=== PATIENT | female | born 1935 | race Caucasian/White ===

== ENCOUNTER 2021-06-12 14:11 | Inpatient (IN) | payer MEDICARE ==
--- NOTE | 2021-06-12 15:20 | EDM.PDOC ---
ED HPI GENERAL MEDICAL PROBLEM - General Stated Complaint: FALL W/INJURY TO RIGHT HIP Time Seen by Provider: 06/12/21 15:05 Source of Information: Reports: Patient, Family (Patient's daughter) History Limitations: Reports: Other (Patient with dementia and cannot provide me with this information.) - History of Present Illness INITIAL COMMENTS - FREE TEXT/NARRATIVE: 85-year-old female who was walking in her home and had a fall that was unwitnessed at about 3:30 PM yesterday. The daughter reports that she was in another part of the house and she heard a loud noise and went to investigate and found that her mother was lying on the floor and conversant and did not seem to be in any distress but it looked like she was walking and potentially tripped and fell on her right side and then her back. Unsure if she had an head injury or not. The patient really cannot provide us with any history because of her dementia and memory issues. The patient was able to scoot over to the couch with her daughters help and was able to get up and she was ambulatory at that time and continues to be ambulatory through most of the night being a bit out of the bathroom since from her daughter. The patient was also able to ambulate this morning without much difficulty although she was complaining of some pain in her right hip area. This afternoon, when the daughter tried to ambulate her to the bathroom she found it very difficult for her to walk and really she could not walk and was having extreme trouble bearing weight on her and she did not seem to have any strength or energy. Today, the patient has also been very confused and the daughter reports that her mother has "good days" and "bad days" and today would be a "bad day" with regard to memory issues and the level of orientation. No complaints of abdominal pain. The urine has been clear. No blood in the urine. No reports of nausea or vomiting. The patient is very confused today. No localized area of weakness noted. There are no other associated signs or symptoms. There are no other modifying factors. Onset: Other (3:30 PM yesterday) Duration: Constant Location: Reports: Lower Extremity, Right (Right hip) Quality: Reports: Other (Unknown) Severity: Moderate Improves with: Reports: Rest Worsens with: Reports: Other (Palpation), Movement Context: Reports: Trauma Associated Symptoms: Reports: No Other Symptoms (Except as above.) Treatments [employer]: Reports: Other (see below) (Nothing) - Related Data Allergies Allergy/AdvReac Type Severity Reaction Status Date / Time morphine Allergy Cannot Verified 06/12/21 15:09 Remember Home Meds: Home Meds . [Unable to Verify Home Med List] 06/12/21 [History] Past Medical History Cardiovascular History: Reports: CAD, High Cholesterol, Hypertension, [place] - Past Surgical History Cardiovascular Surgical History: Reports: Coronary Artery Bypass Musculoskeletal Surgical History: Reports: Knee Replacement (Bilateral) Social & Family History - Tobacco Use Tobacco Use Status *Q: Unknown Ever Used Tobacco (Nonsmoker) - Alcohol Use Alcohol Use History: No - Living Situation & Occupation Living situation: Reports: with Family (Lives with her daughter.) Occupation: Retired ED ROS GENERAL - Review of Systems Review Of Systems: Unable To Obtain (Some of this information was provided by the daughter and is detailed below.) Reason Not Obtained: Patient cannot provide this information secondary to dementia Constitutional: Denies: Fever Respiratory: Denies: Shortness of Breath, Cough Cardiovascular: Denies: Chest Pain GI/Abdominal: Denies: Diarrhea, Vomiting Musculoskeletal: Reports: Leg Pain (Right hip) Skin: Denies: Rash, Wound Neurological: Reports: Confusion. Denies: Dizziness Psychiatric: Reports: Confusion Hematologic/Lymphatic: Denies: Easy Bleeding, Easy Bruising Immunologic: Denies: No Symptoms ED EXAM, GENERAL - Physical Exam Exam: See Below Exam Limited By: No Limitations General Appearance: Alert, WD/WN, No Apparent Distress Eye Exam: Bilateral Eye: EOMI, Normal Inspection, PERRL Ears: Normal External Exam, Hearing Grossly Normal Ear Exam: Bilateral Ear: Auricle Normal Nose: Normal Inspection, Normal Mucosa, No Blood Throat/Mouth: Normal Oropharynx, Normal Voice, No Airway Compromise Head: Atraumatic, Normocephalic Neck: Normal Inspection, Supple, Non-Tender, Full Range of Motion Respiratory/Chest: No Respiratory Distress, Lungs Clear, Normal Breath Sounds, No Accessory Muscle Use, Chest Non-Tender Cardiovascular: Normal Peripheral Pulses, Regular Rate, Rhythm, No Murmur Peripheral Pulses: 2+: Radial (L), Radial (R), Dorsalis Pedis (L), Dorsalis Pedis (R) GI/Abdominal: Normal Bowel Sounds, Soft, Non-Tender, No Mass Back Exam: Normal Inspection. No: CVA Tenderness (R), CVA Tenderness (L), Muscle Spasm Extremities: No Pedal Edema, Normal Capillary Refill, Leg Pain (Tender over rig ht hip area. No crepitus.) Neurological: Alert, CN II-XII Intact, No Motor/Sensory Deficits, Confused, Disoriented Skin Exam: Warm, Dry, Intact, Normal Color #1 Interpretation EKG Date: 06/12/21 Time: 15:38 Rhythm: NSR Rate (Beats/Min): 58 Raymond: Normal P-Wave: Present QRS: Normal ST-T: Other (Borderline T-wave abnormalities in the anterior leads) QT: Prolonged Comparison: NA - No Prior EKG Course - Vital Signs Last Recorded V/S: Last Vital Signs Temp 36.1 C 06/12/21 14:15 Pulse 62 06/12/21 14:15 Resp 18 06/12/21 14:15 BP 141/66 H 06/12/21 14:15 Pulse Ox 97 06/12/21 14:15 - Orders/Labs/Meds Orders: Active Orders 24 hr Category Date Time Status Patient Status Manage Transfer [TRANSFER] Routine ADT 06/12/21 20:15 Active Patient Status [ADT] Routine ADT 06/12/21 20:07 Active Insert Urinary Catheter [OM.PC] ONETIME Care 06/12/21 15:45 Ordered Intake and Output [RC] QSHIFT Care 06/12/21 20:10 Active Oxygen Therapy [RC] PRN Care 06/12/21 20:07 Active VTE/DVT Education [RC] Per Unit Routine Care 06/12/21 20:07 Active Vital Signs [RC] Q4H Care 06/12/21 20:07 Active Heart Healthy Diet [DIET] Diet 06/12/21 Dinner Ordered Head wo Cont [CT] Stat Exams 06/12/21 15:29 Taken Hip Min 2V or 3V w Pelvis Rt [CR] Stat Exams 06/12/21 15:29 Taken Lower Extremity wo Cont Rt [CT] Stat Exams 06/12/21 17:41 Taken Pelvis wo Cont [CT] Stat Exams 06/12/21 17:39 Taken BASIC METABOLIC PANEL,BMP [CHEM] AM Lab 06/13/21 05:11 Ordered CBC WITH AUTO DIFF [HEME] AM Lab 06/13/21 05:11 Ordered CULTURE URINE [RM] Stat Lab 06/12/21 15:40 Received Acetaminophen [TylenoL] Med 06/12/21 20:06 Ordered 650 mg PO Q4H PRN Ondansetron [Zofran] Med 06/12/21 20:06 Ordered 4 mg IV Q6H PRN Sodium Chloride 0.9% [Normal Saline] 1,000 ml Med 06/12/21 20:15 Ordered IV ASDIRECTED VTE Mechanical Contraindications [AST] Per Unit Routine Oth 06/12/21 20:06 Ordered VTE Pharmacological Contraindications [AST] Per Unit Oth 06/12/21 20:06 Ordered Routine Resuscitation Status Routine Resus Stat 06/12/21 20:06 Ordered EKG 12 Lead [EK] Routine Ther 06/12/21 15:29 Ordered Medication Orders Acetaminophen (Acetaminophen 325 Mg Tab) 650 mg PO Q4H PRN PRN Reason: Pain (Mild 1-3)/fever Sodium Chloride (Normal Saline) 1,000 mls @ 75 mls/hr IV ASDIRECTED [facility] Ondansetron HCl (Ondansetron 4 Mg/2 Ml Sdv) 4 mg IV Q6H PRN PRN Reason: Nausea/Vomiting Labs: Laboratory Tests 06/12/21 06/12/21 06/12/21 Range/Units 15:40 15:40 15:40 WBC 9.4 (3.0-10.3) x10-3/uL RBC 4.61 (3.60-5.20) x10(6)uL Hgb 13.3 (11.4-15.5) g/dL Hct 39.7 (34.2-48.2) % MCV 86.2 (76.7-100.5) fL MCH 28.9 (23.9-33.9) pg MCHC 33.5 (31.9-34.8) g/dL RDW 14.3 (12.3-16.5) % Plt Count 369 (151-488) x10(3)uL MPV 7.5 (7.1-12.4) fL Neut % (Auto) 86.0 H (30.8-76.2) % Lymph % (Auto) 3.6 L (18.4-52.1) % Smith % (Auto) 9.2 (4.4-15.7) % Eos % (Auto) 0.8 (0.6-8.1) % Baso % (Auto) 0.4 (0.2-1.5) % Neut # (Auto) 8.1 H (1.5-6.3) x10-3/uL Lymph # (Auto) 0.3 L (1.0-4.4) x10-3/uL Smith # (Auto) 0.9 (0.3-1.0) x10-3/uL Eos # (Auto) 0.1 (0.0-0.8) x10-3/uL Baso # (Auto) 0.0 (0.0-0.1) x10-3/uL PT 11.7 H (9.0-11.1) sec INR 1.09 (1.00-1.24) Sodium (135-145) mmol/L Potassium (3.5-5.3) mmol/L Chloride (100-110) mmol/L Carbon Dioxide (21-32) mmol/L BUN (7-18) mg/dL Creatinine (0.55-1.02) mg/dL Est Cr Clr Drug Dosing mL/min Estimated GFR (MDRD) (>60) BUN/Creatinine Ratio (9-20) Glucose (80-116) mg/dL Calcium (8.6-10.2) mg/dL Magnesium (1.8-2.5) mg/dL Total Bilirubin (0.1-1.3) mg/dL AST (5-25) IU/L ALT (12-36) U/L Alkaline Phosphatase (56-112) IU/L Troponin I (4.0-60.3) pg/mL C-Reactive Protein (0.5-0.9) mg/dL Total Protein (6.0-8.0) g/dL Albumin (3.2-4.6) g/dL Globulin g/dL Albumin/Globulin Ratio Urine Color [place] (YELLOW) Urine Appearance Clear (CLEAR) Urine pH 5.0 (5.0-6.5) Ur Specific [place] 1.015 (1.010-1.025) Urine Protein 30 H (NEGATIVE) mg/dL Urine Glucose (UA) Normal (NORMAL) mg/dL Urine Ketones Negative (NEGATIVE) mg/dL Urine Occult Blood Moderate H (NEGATIVE) Urine Nitrite Negative (NEGATIVE) Urine Bilirubin Small H (NEGATIVE) Urine Urobilinogen 1 H (NEGATIVE) mg/dL Ur Leukocyte Esterase Negative (NEGATIVE) U Hyaline Cast (Auto) Few H (NS) Urine RBC 10-20 H (0-5) Urine WBC 0-5 (0-5) Ur Squamous Epith Cells Rare (NS,R,O) Urine Bacteria Few H (NS) Urine Mucus Few H (NS) 06/12/21 06/12/21 Range/Units 15:40 15:40 WBC (3.0-10.3) x10-3/uL RBC (3.60-5.20) x10(6)uL Hgb (11.4-15.5) g/dL Hct (34.2-48.2) % MCV (76.7-100.5) fL MCH (23.9-33.9) pg MCHC (31.9-34.8) g/dL RDW (12.3-16.5) % Plt Count (151-488) x10(3)uL MPV (7.1-12.4) fL Neut % (Auto) (30.8-76.2) % Lymph % (Auto) (18.4-52.1) % Smith % (Auto) (4.4-15.7) % Eos % (Auto) (0.6-8.1) % Baso % (Auto) (0.2-1.5) % Neut # (Auto) (1.5-6.3) x10-3/uL Lymph # (Auto) (1.0-4.4) x10-3/uL Smith # (Auto) (0.3-1.0) x10-3/uL Eos # (Auto) (0.0-0.8) x10-3/uL Baso # (Auto) (0.0-0.1) x10-3/uL PT (9.0-11.1) sec INR (1.00-1.24) Sodium 134 L (135-145) mmol/L Potassium 3.7 (3.5-5.3) mmol/L Chloride 99 L (100-110) mmol/L Carbon Dioxide 30 (21-32) mmol/L BUN 17 (7-18) mg/dL Creatinine 0.9 (0.55-1.02) mg/dL Est Cr Clr Drug Dosing 35.49 mL/min Estimated GFR (MDRD) 59 L (>60) BUN/Creatinine Ratio 18.9 (9-20) Glucose 124 H (80-116) mg/dL Calcium 8.4 L (8.6-10.2) mg/dL Magnesium 1.8 (1.8-2.5) mg/dL Total Bilirubin 0.8 (0.1-1.3) mg/dL AST 21 (5-25) IU/L ALT 31 (12-36) U/L Alkaline Phosphatase 61 (56-112) IU/L Troponin I 11.4 (4.0-60.3) pg/mL C-Reactive Protein 3.1 H* (0.5-0.9) mg/dL Total Protein 6.2 (6.0-8.0) g/dL Albumin 3.5 (3.2-4.6) g/dL Globulin 2.7 g/dL Albumin/Globulin Ratio 1.3 Urine Color (YELLOW) Urine Appearance (CLEAR) Urine pH (5.0-6.5) Ur Specific [place] (1.010-1.025) Urine Protein (NEGATIVE) mg/dL Urine Glucose (UA) (NORMAL) mg/dL Urine Ketones (NEGATIVE) mg/dL Urine Occult Blood (NEGATIVE) Urine Nitrite (NEGATIVE) Urine Bilirubin (NEGATIVE) Urine Urobilinogen (NEGATIVE) mg/dL Ur Leukocyte Esterase (NEGATIVE) U Hyaline Cast (Auto) (NS) Urine RBC (0-5) Urine WBC (0-5) Ur Squamous Epith Cells (NS,R,O) Urine Bacteria (NS) Urine Mucus (NS) Meds: Medications Generic Name Dose Route Start Last Admin Trade Name Freq PRN Reason Stop Dose Admin Acetaminophen 650 mg 06/12/21 20:06 Acetaminophen 325 Mg Tab PO Q4H PRN Pain (Mild 1-3)/fever Sodium Chloride 1,000 mls @ 75 mls/hr 06/12/21 20:15 Normal Saline IV ASDIRECTED [facility] Ondansetron HCl 4 mg 06/12/21 20:06 Ondansetron 4 Mg/2 Ml Sdv IV Q6H PRN Nausea/Vomiting - Radiology Interpretation Free Text/Narrative:: CT scan of head showed no acute abnormality per Dr. Pretty. X-ray of pelvis and right hip showed no definite fracture per Dr. Pretty. CT scan of pelvis and right hip shows right greater trochanter fracture that is nondisplaced. This was per the [facility] radiologist. - Re-Assessments/Exams Free Text/Narrative Re-Assessment/Exam: 06/12/21 16:30: White blood cell count was 9.4. Hemoglobin is 13.3. Platelet count is normal. Sodium is 134. Potassium is 3.7. Bicarbonate is 30. BUN is 17 and creatinine is 0.9. Glucose is 124. Urinalysis is negative. LFTs are normal. I am awaiting results of the CT scan of the head and the pelvis and hip the patient remains hemodynamically stable. She is still disoriented. 06/12/21 17:15: CT scan of the head showed no acute abnormality. The x-rays of the pelvis and the right hip showed no definite fracture per the radiologist. The plan will be to ambulate the patient and if she is able ambulate, she will be able to be discharged home. 06/12/21 17:35: The patient was not able to ambulate. When she attempted to she had severe pain and could not even bear weight on her right foot. We will need to do a CT scan of the pelvis and right hip. Keep the patient at bed rest and continue monitoring her for now. She is stable and not requiring any pain medications. 06/12/21 19:15: CT scan of the patient's pelvis and right hip shows a nondisplaced greater trochanter fracture. No other fractures are seen. I will need to discuss this with an orthopedist. The patient will not be available discharged. She will need admission. 06/12/21 19:35: I discussed the patient's case with Dr. Zhao, orthopedist at [facility] in [place], and he feels that the patient will need an MRI of her right hip. To assess whether there is involvement into the intertrochanteric region. There is extension of the fracture into the intertrochanteric region, the patient will need orthopedic specially services and operative intervention. If it only involves the greater trochanter, the patient will need only admission f or pain control and weightbearing as tolerated. There are no beds available at [facility] in [place] at present. The patient could be transferred tomorrow potentially as beds become available. The orthopedic surgeon asked to try to get an MRI of the right hip as that would whether the patient really needed transfer or not. Patient could not get MRI of the right hip, then she would need transfer for definitive evaluation and management. 06/12/21 19:45: Unfortunately, there is not MRI availability at [facility] rest of the weekend. The patient could be admitted here for pain control and for monitoring but will need transfer tomorrow for further evaluation with MRI (which is not available at [facility]) to determine need for level of orthopedic specially involvement. Therefore, I will admit the patient here under observation status. The patient's care will go to Dr. Tellez at 7 AM on 06/13/2021 he will need to address this was [facility] tomorrow for transfer the patient. Departure - Departure Time of Disposition: 20:15 Disposition: Refer to Observation Condition: Fair Clinical Impression: Fracture of greater trochanter of right femur Qualifiers: Encounter type: initial encounter Fracture type: closed Fracture alignment: nondisplaced Qualified Code(s): S72.114A - Nondisplaced fracture of greater trochanter of right femur, initial encounter for closed fracture Fall Qualifiers: Encounter type: initial encounter Qualified Code(s): W19.XXXA - Unspecified fall, initial encounter - Discharge Information Referrals: PCP,None [Primary Care Provider] - Sepsis Event Note (ED) - Focused Exam Vital Signs: Vital Signs Temp Pulse Resp BP Pulse Ox 06/12/21 14:15 36.1 C 62 18 141/66 H 97 - My Orders Last 24 Hours: My Active Orders 06/12/21 15:29 Head wo Cont [CT] Stat Hip Min 2V or 3V w Pelvis Rt [CR] Stat EKG 12 Lead [EK] Routine 06/12/21 15:40 CULTURE URINE [RM] Stat 06/12/21 15:45 Insert Urinary Catheter [OM.PC] ONETIME 06/12/21 Dinner Heart Healthy Diet [DIET] 06/12/21 17:39 Pelvis wo Cont [CT] Stat 06/12/21 17:41 Lower Extremity wo Cont Rt [CT] Stat 06/12/21 20:06 Acetaminophen [TylenoL] 650 mg PO Q4H PRN Ondansetron [Zofran] 4 mg IV Q6H PRN VTE Mechanical Contraindications [AST] Per Unit Routine VTE Pharmacological Contraindications [AST] Per Unit Routine Resuscitation Status Routine 06/12/21 20:07 Patient Status [ADT] Routine Oxygen Therapy [RC] PRN VTE/DVT Education [RC] Per Unit Routine Vital Signs [RC] Q4H 06/12/21 20:10 Intake and Output [RC] QSHIFT 06/12/21 20:15 Patient Status Manage Transfer [TRANSFER] Routine Sodium Chloride 0.9% [Normal Saline] 1,000 ml IV ASDIRECTED 06/13/21 05:11 BASIC METABOLIC PANEL,BMP [CHEM] AM CBC WITH AUTO DIFF [HEME] AM - Assessment/Plan Last 24 Hours: My Active Orders 06/12/21 15:29 Head wo Cont [CT] Stat Hip Min 2V or 3V w Pelvis Rt [CR] Stat EKG 12 Lead [EK] Routine 06/12/21 15:40 CULTURE URINE [RM] Stat 06/12/21 15:45 Insert Urinary Catheter [OM.PC] ONETIME 06/12/21 Dinner Heart Healthy Diet [DIET] 06/12/21 17:39 Pelvis wo Cont [CT] Stat 06/12/21 17:41 Lower Extremity wo Cont Rt [CT] Stat 06/12/21 20:06 Acetaminophen [TylenoL] 650 mg PO Q4H PRN Ondansetron [Zofran] 4 mg IV Q6H PRN VTE Mechanical Contraindications [AST] Per Unit Routine VTE Pharmacological Contraindications [AST] Per Unit Routine Resuscitation Status Routine 06/12/21 20:07 Patient Status [ADT] Routine Oxygen Therapy [RC] PRN VTE/DVT Education [RC] Per Unit Routine Vital Signs [RC] Q4H 06/12/21 20:10 Intake and Output [RC] QSHIFT 06/12/21 20:15 Patient Status Manage Transfer [TRANSFER] Routine Sodium Chloride 0.9% [Normal Saline] 1,000 ml IV ASDIRECTED 06/13/21 05:11 BASIC METABOLIC PANEL,BMP [CHEM] AM CBC WITH AUTO DIFF [HEME] AM
[2021-06-12] MEDS ORDERED: Ondansetron 4 MG/2 ML SDV IV PRN (20:06)
[2021-06-12] MEDS: Sodium Chloride 0.9% 1,000 ML IV SCH (22:22)
[2021-06-13] MEDS: Sodium Chloride 0.9% 1,000 ML IV SCH (12:07)
[2021-06-13] MEDS: ATENOLOL 100 MG PO SCH (19:59)
[2021-06-13] MEDS: Acetaminophen 325 MG Tab PO PRN (19:59)
[2021-06-13] MEDS: NITROGLYCERIN 6.5 MG PO SCH (19:59)
[2021-06-14] MEDS: Sodium Chloride 0.9% 1,000 ML IV SCH ×2 (01:27→17:13)
[2021-06-14] MEDS: Potassium Chloride 10 MEQ Tab.ER ** OWN MED PO SCH (08:40)
[2021-06-14] MEDS: NITROGLYCERIN 6.5 MG PO SCH ×2 (08:41→21:46)
[2021-06-14] MEDS: AMLODIPINE 10 MG PO SCH (08:42)
[2021-06-14] MEDS: Enoxaparin 30 MG/0.3 ML Syringe SUBCUT SCH (10:15)
[2021-06-14] MEDS ORDERED: Sodium Chloride 0.9% 10 ML Syringe FLUSH PRN (17:11)
[2021-06-14] MEDS ORDERED: LORazepam 2 MG/ML SDV IVPUSH ONE (17:37)
--- NOTE | 2021-06-14 18:11 | PCM.SN.2 ---
- Free Text/Narrative Note: 06/14/2021 17:40: Called by the nursing staff secondary to increased agitation from the patient and that she was pulling at her IV and seemed to be more confused than usual. It was reported to me that her pulse was in the 110 range and her O2 saturations were 92% on room air. To evaluate the patient and at this point, she is more calm. She is still quite confused and does not remember me (I admitted her to the hospital and saw her 2 days ago) and she seems to be somewhat confabulatory. This is exactly the way she was when I saw her 2 days ago. On my exam, the patient's wrist rate is 16 and her pulse rate is 84. She has good skin coloration and is well-perfused in her hands and feet and does not appear to be in any distress now. This point, I don't see any thing else going on other than some confusion related to her dementia and her not being in her normal pain. I don't see any concerning signs or symptoms. I do see that the patient is still listed as a full code area I will address this with the patient's daughter. I will also order Ativan 0.5 mg IV. Lab will be to continue to monitor the patient and if concerning signs or symptoms develop, we will investigate this further. 06/14/2021 1805: The patient's daughter has just arrived to visit with the patient. The patient remains calm and appears to be having no agitation of present. She actually is eating her supper and seems to be eating well without any problems. The daughter tells me that the beds have been full in [place] for the past few days and the plan is for the patient to get an MRI of her right hip and hopefully that will be available to be performed tomorrow and if not tomorrow will be performed on 06/16/2021. I did discuss CODE STATUS with the daughter and the daughter is unsure. At this point, the patient is alert and she is at least oriented to her daughter and to the fact that she is in a hospital. He tells me that she would want to be a full code. Her, we will keep the patient as a full code. She has just received the Ativan 0.5 mg IV. We will continue to monitor the patient as above.
[2021-06-14] MEDS: Acetaminophen 325 MG Tab PO PRN (21:46)
[2021-06-14] MEDS: ATENOLOL 100 MG PO SCH (21:46)
[2021-06-15] MEDS: Sodium Chloride 0.9% 1,000 ML IV SCH ×2 (06:35→19:43)
[2021-06-15] MEDS: Potassium Chloride 10 MEQ Tab.ER ** OWN MED PO SCH (09:35)
[2021-06-15] MEDS: NITROGLYCERIN 6.5 MG PO SCH ×2 (09:36→21:30)
[2021-06-15] MEDS: AMLODIPINE 10 MG PO SCH (09:36)
[2021-06-15] MEDS: Enoxaparin 30 MG/0.3 ML Syringe SUBCUT SCH (09:43)
[2021-06-15] MEDS: Acetaminophen 325 MG Tab PO PRN ×2 (17:34→22:54)
[2021-06-15] MEDS: ATENOLOL 100 MG PO SCH (21:30)
[2021-06-16] MEDS ORDERED: Potassium Chloride 10 MEQ Tab.ER PO SCH (09:00)
[2021-06-16] MEDS ORDERED: NITROGLYCERIN 6.5 MG PO SCH ×2 (09:00)
[2021-06-16] MEDS ORDERED: amLODIPine 5 MG Tab PO SCH (09:00)
[2021-06-16] MEDS: Enoxaparin 30 MG/0.3 ML Syringe SUBCUT SCH (09:41)
--- NOTE | 2021-06-16 10:31 | CT ---
CT HEAD WITHOUT CONTRAST INDICATION: Fall with head injury - hit back of head. Spiral 3.75 mm axial sections were obtained through the brain without contrast with axial, sagittal and coronal reconstructions 06/12/21 - no comparisons. Total exam DLP was 1270.76 mGy/cm. The orbits appear to be intact with postsurgical changes at the globes. Except for some thickened linings of the anterior and a few mid ethmoidal air cells, the paranasal sinuses appeared well aerated as did the mastoid air cells. No cranial fracture site was identified. Extensive calcifications are noted in the vertebral arteries and internal carotid arteries. No shift of midline structures or ventricular abnormalities were identified for age. The hills/white matter interface appeared to be fairly normal. Patchy areas of decreased density in the white matter are compatible with moderate degree of microvascular disease. No bleeding site or hematoma was identified. Small focal defect in the basal ganglia on the left is compatible with a lacunar infarct indeterminate age. There are some calcifications in the basal ganglia, most likely not of clinical significance. IMPRESSION: 1. No acute intracranial abnormality. 2. Cerebrovascular disease with white matter changes compatible with moderate microvascular disease. 3. Minimal changes in ethmoidal air cells. 4. Probable lacunar infarct at the left basal ganglia. RIGHT HIP WITH PELVIS INDICATION: Fall with right hip pain. Frontal view of the pelvis with frontal and lateral views of the right hip were obtained 06/12/21 - no comparisons. Diminished appearing bone density suggests osteoporosis - correlate clinically. Minimal degenerative changes are noted at the sacroiliac joints with no fracture in that area or dislocation in that area. Arterial calcifications are noted incidentally. Mild hypertrophic degenerative changes are noted at the right hip joint. An acute fracture or dislocation was not identified in the pelvis or hips. Hypertrophic degenerative changes and disc disease are noted at L4-5. IMPRESSION: No acute fracture or dislocation. Report was called to Dr. Pham at 1637 hours 06/12/21. [facility]
--- NOTE | 2021-06-16 10:52 | HP ---
ADMISSION DATE: 06/12/2021 CHIEF COMPLAINT: Right hip pain. HISTORY OF PRESENT ILLNESS: Corine Stern is an 85-year-old female, [place] resident, lives with her single daughter, admitted through emergency room. Had been seen by Dr. Calvo. Late afternoon, daughter was out tending to the dog outdoors, apparently Corine had fallen in her home. She was bright, alert, awake, and conversant, had no apparent pain. Ambulation created some initial difficulty walking, suspicion for right hip pain. Dementia problematic issue of clinical concern. She was seen by Dr. Calov, was found to have a nondisplaced intertrochanteric fracture of the right hip. He spoke with Surgery in [place], recommended MRI to determine surgical or nonsurgical nature. Admitted for pain control and therapy on board. DAILY MEDICATIONS: By ER note, will be verified. PAST MEDICAL HISTORY: Significant for: 1. Coronary artery disease. 2. Hyperlipidemia. 3. Hypertension. 4. Previous myocardial infarction. PAST SURGICAL HISTORY: She has had bilateral knee arthroplasty, coronary bypass surgery. No other operative procedures, hospitalizations, unusual childhood diseases, major injuries, or fractures. SOCIAL HISTORY: Lives with her 51-year-old daughter. . One daughter. Nonsmoker. No alcohol. No illicit drug use. REVIEW OF SYSTEMS: Daughter reviews no new complaints or concerns. Otherwise, unremarkable. PHYSICAL EXAMINATION: VITAL SIGNS: 36.9, 170/68, 16, 96. GENERAL: A young lady, cooperative, conversant, recumbent. Little spontaneous speech. HEENT: Funduscopic benign. Conjunctivae clear. Bright tympanic membranes. Clear nasal discharge. Mouth and oropharynx clear. Poor dentition. NECK: Benign. No JVD. CHEST: Clear in all lung pugh. No adventitious sounds. HEART: Distant heart sounds. Occasional ectopy. Soft murmur. Sternotomy scar well healed. ABDOMEN: Benign. No hepatosplenomegaly. No surgical scars. AND RECTAL: Deferred. EXTREMITIES: Well perfused. Good peripheral pulses. NEUROLOGIC: Sensation intact. SKIN: No open sores or lesions. EXTREMITIES: Palpable pain, rotation and flexion, right hip. LABORATORY STUDIES: White count 9400, repeat 7700, hemoglobin 13.3, 39. Electrolytes satisfactory. Potassium 3.7 and 3.2, calcium 8.4 and 8.3. C- reactive protein 3.1. Urinalysis, moderate blood, culture to follow. ASSESSMENT: Right hip fracture, intertrochanteric, surgical versus nonsurgical. PLAN: We will await MRI, cooperative care and wellbeing. Intervention and care treatment as appropriate. /[id number] GANESH/NORRIS
--- NOTE | 2021-06-16 10:52 | PN ---
DATE SEEN: 06/15/2021 SUBJECTIVE: Corine Stern is an 85-year-old female who lives with her daughter was admitted after sustaining a fall. She sustained a peculiar intertrochanteric fracture, surgical versus nonsurgical. CT confirmatory. Orthopedics in [place] declining operative intervention until MRI has been obtained. Did have an acute confusional state last evening given Ativan, created some bizarre mental status changes. We will wean accordingly. LABORATORY STUDIES: Hemoglobin stable 13.3, 13.9. Electrolytes satisfactory. GFR 59 and 60. OBJECTIVE: VITAL SIGNS: 36.7, 61, 175/101, 18, and 95%. GENERAL: Conversant but limited. No obvious pain. NECK: Benign. Thyroid small. CHEST: Clear in all lung pugh. HEART: No ectopy or murmur. ABDOMEN: Benign. EXTREMITIES: Tender over the lateral hip. ASSESSMENT: Hip fracture under surveillance. PLAN: We will await MRI tomorrow, results to be forwarded accordingly. Ortho will be consulted. /[id number] /NORRIS
--- NOTE | 2021-06-16 10:52 | PN ---
DATE SEEN: 06/14/2021 SUBJECTIVE: Corine Stern is an 85-year-old female, lives independently with her daughter, sustained what appears to be a nondisplaced fracture to right hip. The surgical orthopedic staff at [facility] reviewed, delays intervention until MRI can be obtained. MRI access, holiday weekend absence. Otherwise, doing well and without particular complaints. MEDICATIONS: Reviewed and appropriate. OBJECTIVE: VITAL SIGNS: 36.7, 110, 174/69, 18, 97%. GENERAL: Conversant on occasion. NECK: Benign. Thyroid small. CHEST: Clear in all lung pugh. HEART: Distant heart sounds. Soft murmur. EXTREMITIES: Some palpable discomfort in the right hip. ASSESSMENT: Right hip pain. PLAN: Continue present therapy, we will add Lovenox for preventative issues. Complementary care and well being. Pain control on board. /[id number] GANESH/NORRIS
--- NOTE | 2021-06-16 10:54 | PN ---
DATE SEEN: 06/16/2021 SUBJECTIVE: Corine Stern is an 85-year-old female admitted with an occult hip fracture. Surgical versus nonsurgical unknown. MRI planned for today will be more definitive. The pain appears not to be a problematic issue. Laboratory studies none of recent nature, been stable. OBJECTIVE: Vital Signs: 36.8, 60, 167/76, 20, 93% on room air. General: Soft spoken, speaks when spoken to. Neck: No JVD. Chest: Clear all lung pugh. Heart: No ectopy or murmur. Abdomen: Benign. ASSESSMENT: Hip fracture. PLAN: Surgical otherwise still under review. Presently on Lovenox subcu. Pain appears to be not a problematic issue. /[id number] GANESH/NORRIS
[2021-06-16] MEDS: Sodium Chloride 0.9% 1,000 ML IV SCH (12:26)
== END 2021-06-16 17:20 | DRG 536 ==
LOC: FB.ED 14:11 → FB.MS 20:58 → OBSVTOIN 06-15 10:29
PROVIDERS: ADMIT Family Medicine; ATTEND Family Medicine
DX: S72.114A Nondisplaced fracture of greater trochanter of right femur, initial encounter for closed fracture (principal); S72.144A Nondisplaced intertrochanteric fracture of right femur, initial encounter for closed fracture; W19.XXXA Unspecified fall, initial encounter; Y92.009 Unspecified place in unspecified non-institutional (private) residence as the place of occurrence of the external cause; I25.10 Atherosclerotic heart disease of native coronary artery without angina pectoris; E78.5 Hyperlipidemia, unspecified; Z88.6 Allergy status to analgesic agent; I10 Essential (primary) hypertension; I25.2 Old myocardial infarction; Z96.653 Presence of artificial knee joint, bilateral; Z20.822 Contact with and (suspected) exposure to COVID-19; F03.90 Unspecified dementia, unspecified severity, without behavioral disturbance, psychotic disturbance, mood disturbance, and anxiety; Z95.1 Presence of aortocoronary bypass graft; Z88.5 Allergy status to narcotic agent; E78.00 Pure hypercholesterolemia, unspecified; R45.1 Restlessness and agitation
CPT/HCPCS: 36415 ×2; 51701; 70450; 72192; 73502; 73700; 80048; 80053; 81001; 83735; 84484; 85025 ×2; 85610; 86140; 87086; 93005; 99285; A9270 ×12; J1650 ×2; J2060; J7030 ×5; U0002; 73721-RT; 96372; 96374; G0378

== ENCOUNTER 2021-06-22 12:27 | Inpatient (IN) | payer MEDICARE ==
[2021-06-22] MEDS ORDERED: Polyethylene Glycol 3350 Powder 17 GM Packet PO PRN (14:08)
--- NOTE | 2021-06-22 15:49 | PCM.HP.2 ---
H&P History of Present Illness - General Date of Service: 06/22/21 Admit Problem/Dx: Admission Diagnosis/Problem Admission Diagnosis/Problem Hip fracture requiring operative repair Source of Information: Patient, Family, Provider History Limitations: Reports: Physical Impairment (Lewy Body Dementia) - History of Present Illness Initial Comments - Free Text/Narative: Corine admitted to swing bed for rehab therapy s/p left hip fracture repair with dynamic hip screw(DHS) on 06/17, she had been admitted on 06/11 after sustaining fall at home, was admitted for pain control and to determine if was surgical fracture, she was transferred to [facility] on 06/16, they could not do surgery so she was transferred to [facility], Dr Gómez did repair on 06/17. She has done well postoperatively, Hgb 11.8, which has been stable. Her blood pressure was elevated and they gradually added her home medications back in, restarted her HCTZ today. She has follow up with Dr Gómez in 6 weeks. He is to be on Lovenox daily until Jul 15. She has been using Tylenol as needed for pain in [place], was not discharged on any narcotics. She has history of Lewy Body Dementia, lives with her daughter. She eats mainly vegetarian, sometimes fish, eggs and rarely meat. She only has milk with cereal or oatmeal. She is a FULL CODE. - Related Data Allergies/Adverse Reactions: Allergies Allergy/AdvReac Type Severity Reaction Status Date / Time morphine Allergy Cannot Verified 06/12/21 15:09 Remember Home Medications: Home Meds Lutein/Min/Vit C/Vit E Acetate [Ocuvite Lutein] 1 cap PO DAILY 06/13/21 [History] Nitroglycerin 6.5 mg PO BID 06/13/21 [History] Potassium Chloride 10 meq PO DAILY 06/13/21 [History] Prevagen 1 cap PO DAILY 06/13/21 [History] Rosuvastatin Calcium 40 mg PO BEDTIME 06/13/21 [History] amLODIPine Besylate [Amlodipine Besylate] 5 mg PO DAILY 06/13/21 [History] atenoloL [Atenolol] 100 mg PO BEDTIME 06/13/21 [History] hydroCHLOROthiazide [Hydrochlorothiazide] 25 mg PO DAILY 06/13/21 [History] Acetaminophen [Tylenol] 650 mg PO Q6H PRN 06/22/21 [History] Calcium Carb, Citrate/Vit D3 [Citracal + D ER] 1 tab PO BIDMEALS 06/22/21 [History] Cholecalciferol (Vitamin D3) [Vitamin D3] 25 mcg PO DAILY 06/22/21 [History] Enoxaparin Sodium [Lovenox] 40 mg SUBCUT DAILY 06/22/21 [History] Ergocalciferol (Vitamin D2) [Vitamin D2] 20 mcg PO DAILY 06/22/21 [History] Multivitamin with Minerals [Multivitamins with Minerals] 1 tab PO DAILY 06/22/21 [History] Sennosides/Docusate Sodium [Senna-S 8.6-50 mg Tablet] 1 tab PO BID 06/22/21 [History] polyethylene glycoL 3350 [MiraLAX] 17 gm PO DAILY PRN 06/22/21 [History] Past Medical History Cardiovascular History: Reports: CAD, High Cholesterol, Hypertension, [employer] History: Reports: Neurological History: Reports: Other (See Below) Other Neuro History: dementia - Past Surgical History Cardiovascular Surgical History: Reports: Coronary Artery Bypass Musculoskeletal Surgical History: Reports: Knee Replacement Social & Family History - Family History Family Medical History: No Pertinent Family History - Caffeine Use Caffeine Use: Reports: Coffee - Living Situation & Occupation Living situation: Reports: with Family (Lives with her daughter.) Occupation: Retired H&P Review of Systems - Review of Systems: Review Of Systems: See Below General: Reports: No Symptoms HEENT: Reports: No Symptoms Pulmonary: Reports: No Symptoms Cardiovascular: Reports: No Symptoms Gastrointestinal: Reports: No Symptoms, Other (had hernia repair with mesh(large ventral)) Genitourinary: Reports: No Symptoms Musculoskeletal: Reports: Joint Pain (mild, sore) Skin: Reports: Wound (left hip, swelling proximal incision) Exam - Exam Exam: See Below - Exam General: Alert, Cooperative. No: Oriented, Mild Distress HEENT: PERRLA, EOMI, Hearing Intact, Mucosa Moist & [place], Glasses Neck: Trachea Midline Lungs: Clear to Auscultation, Normal Respiratory Effort Cardiovascular: Regular Rate, Regular Rhythm GI/Abdominal Exam: Normal Bowel Sounds, Soft, Non-Tender, No Distention, Hernia (mesh, large ventral; small lipoma 2 on left of midline overlying hernia mesh) (Female) Exam: Deferred Rectal (Female) Exam: Deferred Extremities: No Pedal Edema, Normal Capillary Refill. No: Increased Warmth Peripheral Pulses: 2+: Radial (L), Radial (R), Posterior Tibial (L), Posterior Tibial (R), Dorsalis Pedis (L), Dorsalis Pedis (R) Skin: Incision (Left hip: mepilex dressing in place, moderate swelling, NT proximal incision) Neurological: Cranial Nerves Intact, Normal Speech, Normal Tone Neuro Extensive - Mental Status: Alert, Disorientation to Place, Disorientation to Time, Memory Loss-Recent Events Psychiatric: Normal Affect *Q Meaningful Use (ADM) - VTE *Q VTE Mechanical Contraindications *Q: At Risk for Falls - Problem List (1) Status post-operative repair of hip fracture SNOMED Code(s): 133475503, 179609626 ICD Code: Z98.890 - OTHER SPECIFIED POSTPROCEDURAL STATES; Z87.81 - PERSONAL HISTORY OF (HEALED) TRAUMATIC FRACTURE Status: Acute Current Visit: Yes Onset Date: ~06/17/21 (2) Acute blood loss anemia SNOMED Code(s): 079336590 ICD Code: D62 - ACUTE POSTHEMORRHAGIC ANEMIA Status: Acute Current Visit: Yes Problem Details: Hgb 11.8 (3) Fracture of greater trochanter of right femur SNOMED Code(s): 535204762, 38506025594016179 ICD Code: S72.111A - DISP FX OF GREATER TROCHANTER OF RIGHT FEMUR, INIT Status: Acute Current Visit: No Onset Date: ~06/11/21 Qualifiers: Encounter type: initial encounter Fracture type: closed Fracture alignment: nondisplaced Qualified Code(s): S72.114A - Nondisplaced fracture of greater trochanter of right femur, initial encounter for closed fracture (4) Hypertension SNOMED Code(s): 14018172 ICD Code: I10 - ESSENTIAL (PRIMARY) HYPERTENSION Status: Chronic Current Visit: Yes (5) Lewy body dementia SNOMED Code(s): 955939448 ICD Code: G31.83 - DEMENTIA WITH LEWY BODIES; F02.80 - DEMENTIA IN OTH DISEASES CLASSD ELSWHR W/O BEHAVRL DISTURB Status: Chronic Current Visit: Yes Qualifiers: Dementia behavioral disturbance: without behavioral disturbance Qualified Code(s): G31.83 - Dementia with Lewy bodies; F02.80 - Dementia in other diseases classified elsewhere without behavioral disturbance Problem List Initiated/Reviewed/Updated: Yes Orders Last 24hrs: Active Orders 24 hr Category Date Time Status Patient Status [ADT] Routine ADT 06/22/21 14:05 Active Height and Weight [RC] MO Care 06/22/21 14:05 Active Oxygen Therapy [RC] .PRN Care 06/22/21 14:05 Active Up With Assistance [RC] .PRN Care 06/22/21 14:05 Active Up to Chair [RC] .PRN Care 06/22/21 14:05 Active VTE/DVT Education [RC] DAILY Care 06/22/21 14:05 Active Vital Signs [RC] PER UNIT ROUTINE Care 06/22/21 14:05 Active OT Evaluation and Treatment [CONS] Routine Cons 06/22/21 14:05 Active PT Evaluation and Treatment [CONS] Routine Cons 06/22/21 14:05 Active Regular Diet [DIET] Diet 06/22/21 Dinner Active Acetaminophen [TylenoL] Med 06/22/21 14:08 Active 650 mg PO Q6H PRN Calcium Carbonate [Oyster Shell Calcium] Med 06/22/21 18:00 Active 500 mg PO BIDMEALS Cholecalciferol (Vitamin D3) [Vitamin D3] Med 06/23/21 09:00 Active 50 mcg PO DAILY Docusate Sodium/Sennosides [Senna Plus] Med 06/22/21 21:00 Active 1 tab PO BID Enoxaparin [Lovenox] Med 06/23/21 09:00 Active 40 mg SUBCUT DAILY Lutein/Min/Vit C/Vit E Acetate [Ocuvite Lutein] Med 06/23/21 09:00 Active 1 each PO DAILY Multivitamins w-Iron/Ca/FA/Min [Thera M Plus] Med 06/23/21 09:00 Active 1 tab PO DAILY Nitroglycerin Med 06/22/21 21:00 Active 6.5 mg PO BID Potassium Chloride [Klor-Con 10] Med 06/23/21 09:00 Active 10 meq PO DAILY Rosuvastatin [Crestor] Med 06/22/21 21:00 Active 40 mg PO BEDTIME amLODIPine [Norvasc] Med 06/23/21 09:00 Active 5 mg PO DAILY atenoloL [Tenormin] Med 06/22/21 21:00 Active 100 mg PO BEDTIME hydroCHLOROthiazide Med 06/23/21 09:00 Active 25 mg PO DAILY polyethylene glycoL 3350 [MiraLAX] Med 06/22/21 14:08 Active 17 gm PO DAILY PRN Resuscitation Status Routine Resus Stat 06/22/21 14:51 Ordered Medication Orders Acetaminophen (Acetaminophen 325 Mg Tab) 650 mg PO Q6H PRN PRN Reason: Pain Amlodipine Besylate (Amlodipine 5 Mg Tab) 5 mg PO DAILY [facility] Atenolol (Atenolol 100 Mg Tab) 100 mg PO BEDTIME YAJAIRA Calcium Carbonate/Glycine (Calcium Carbonate 500 Mg Tablet) 500 mg PO BIDMEALS [facility] Cholecalciferol (Cholecalciferol (Vitamin D3) 25 Mcg Tab) 50 mcg PO DAILY [facility] Enoxaparin Sodium (Enoxaparin 40 Mg/0.4 Ml Syringe) 40 mg SUBCUT DAILY [facility] Stop: 07/15/21 09:01 Hydrochlorothiazide (Hydrochlorothiazide 25 Mg Tab) 25 mg PO DAILY [facility] Multivitamins/Minerals (Multivitamins With Iron/Calcium/Folic Acid/Minerals Tab) 1 tab PO DAILY [facility] Nitroglycerin (Nitroglycerin 6.5 Mg Cap.Er) 6.5 mg PO BID [facility] Polyethylene Glycol (Polyethylene Glycol 3350 Powder 17 Gm Packet) 17 gm PO DAILY PRN PRN Reason: Constipation Potassium Chloride (Potassium Chloride 10 Meq Tab.Er) 10 meq PO DAILY [facility] Rosuvastatin Calcium (Rosuvastatin 20 Mg Tab) 40 mg PO BEDTIME YAJAIRA Senna/Docusate Sodium (Docusate Sodium/Sennosides 50-8.6 Mg Tab) 1 tab PO BID [facility] Vit C/Vit E/Zinc/Copper/Lutein (Lutein/Minerals/Vitamin C/Vitamin E Acetate Cap) 1 each PO DAILY [facility] Assessment/Plan Comment:: 1. Admit to swing bed for rehab services for postop hip. 2. S/p left hip fracture repaired with DHS(dynamic hip screw): Tylenol 650 mg q4h as needed. Ice to left hip to help with swelling/seroma; PT/OT evaluate & treat. Follow up with Dr Gómez in 6 weeks, no sutures to remove. Lovenox 40 mg daily x 23 doses, last dose 07/15/21. 3. Hypertension: resume home medications. 4. Diet: Regular with exceptions: vegetarian mainly, fish, egg, little meat; milk only with oatmeal/cereal. 5. Activity: up to chair & with assistance. 6. DVT prophylaxis: Lovenox 40 mg daily x 23 doses, last dose 07/15. 7. CODE STATUS: per daughter FULL CODE, she understands that it may not be successful but states that is her mother's wishes. 8. Discharge planning: once meets therapy goals, home with daughter. - Mortality Measure Prognosis:: Good
[2021-06-22] MEDS: Calcium Carbonate 500 MG Tablet PO SCH (17:48)
[2021-06-22] MEDS: QUEtiapine 25 MG Tab PO PRN (17:48)
[2021-06-22] MEDS: Rosuvastatin 20 MG Tab PO SCH (21:58)
[2021-06-22] MEDS: NITROGLYCERIN 6.5 MG PO SCH (21:58)
[2021-06-23] MEDS ORDERED: ERGOCALCIFEROL PO SCH (09:00)
[2021-06-23] MEDS: Potassium Chloride 10 MEQ Tab.ER PO SCH (09:19)
[2021-06-23] MEDS: Hydrochlorothiazide 25 MG Tab PO SCH (09:19)
[2021-06-23] MEDS: Calcium Carbonate 500 MG Tablet PO SCH ×2 (09:19→18:00)
[2021-06-23] MEDS: Enoxaparin 40 MG/0.4 ML Syringe SUBCUT SCH (09:20)
[2021-06-23] MEDS: amLODIPine 5 MG Tab PO SCH (09:20)
[2021-06-23] MEDS: NITROGLYCERIN 6.5 MG PO SCH ×2 (09:20→20:00)
[2021-06-23] MEDS: Multivitamins with Iron/Calcium/Folic Acid/Minerals Tab PO SCH (09:21)
[2021-06-23] MEDS: Lutein/Minerals/Vitamin C/Vitamin E Acetate Cap PO SCH (09:21)
[2021-06-23] MEDS: Cholecalciferol (Vitamin D3) 25 MCG Tab PO SCH (09:21)
[2021-06-23] MEDS ORDERED: Ondansetron 4 MG Tab.DIS PO PRN (12:47)
[2021-06-23] MEDS: QUEtiapine 25 MG Tab PO PRN (19:58)
[2021-06-23] MEDS: Rosuvastatin 20 MG Tab PO SCH (20:00)
[2021-06-24] MEDS: Calcium Carbonate 500 MG Tablet PO SCH ×2 (08:34→17:04)
[2021-06-24] MEDS: Hydrochlorothiazide 25 MG Tab PO SCH (08:34)
[2021-06-24] MEDS: Potassium Chloride 10 MEQ Tab.ER PO SCH (08:34)
[2021-06-24] MEDS: NITROGLYCERIN 6.5 MG PO SCH ×2 (08:35→20:19)
[2021-06-24] MEDS: Lutein/Minerals/Vitamin C/Vitamin E Acetate Cap PO SCH (08:35)
[2021-06-24] MEDS: Enoxaparin 40 MG/0.4 ML Syringe SUBCUT SCH (08:35)
[2021-06-24] MEDS: amLODIPine 5 MG Tab PO SCH (08:35)
[2021-06-24] MEDS: Cholecalciferol (Vitamin D3) 25 MCG Tab PO SCH (08:36)
[2021-06-24] MEDS: Multivitamins with Iron/Calcium/Folic Acid/Minerals Tab PO SCH (08:36)
[2021-06-24] MEDS: PREVAGEN PO SCH (11:18)
--- OUTSIDE RECORDS SUMMARY | 2021-06-24 12:24 | XMSREPORT ---
:[address] [facility] Address [facility] [place] [address] Care Team Providers Name Role Phone Provider, Attributed RESOURCE Attributed Provider Unavailab Shan Jordan Primary Care Provider Reason for Visit Auth/Cert Status Reason Specialty Diagnoses / Procedures Referred By Ca mariee Referred To Contact Encounter Details Date Type Department Care Team Description 06/16/2021 - Hospital Encounter [facility] Provider, Generic Hos p Procedure Hip fracture (HCC) 06/22/[address] Juan Medina MD [address] [place] [address] [phone] [address] Melodie Ratliff MD [address] [place] [address] [phone] [facility] [address] [place] [address] [phone] [place] [address] Jayden Dutta MD [address] [place] [address] [phone] Ken Yee MD [address] [place] [address] [phone] Allergies Active Allergy Reactions Severity Noted Date Comments Colestipol Hcl Unknown/Not Verified 07/12/2016 Alendronic Acid Unknown/Not Verified 07/12/2016 Morphine Other (Specify in Comments) 06/22/2016 Hallucinates Isopropyl Nicotinate Unknown/Not Verified 07/12/2016 documented as of this encounter (statuses as of 06/22/2021) Medications Medication Sig Dispensed Refills Start End Status Date Date hydrochlorothiazide 25 Take 25 mg by 0 Active mg tablet mouth 1 time per day Multiple Take 1 tablet by 0 Act kelly Vitamins-Minerals mouth 1 time per (MULTIVITAMIN day THERAPEUTIC WITH MINERALS) tablet multivitamin/lutein Take 1 capsule by 0 Active (PROSIGHT;OCUVITE-LUTE mouth 1 time per IN) capsule day Apoaequorin (PREVAGEN Take 1 capsule by 0 Active EXTRA STRENGTH PO) mouth 1 time per day vitamin D3, Take 1 tablet 30 tablet 0 Acti ve cholecalciferol, 25 (1,000 Units) by 021 mcg (1000 unit) mouth 1 time per tabletIndications: day Closed fracture of right hip, initial encounter ([facility]) calcium Take 1 tablet by 0 Act kelly citrate-vitamin D mouth 2 times a (CITRACAL + VIT D) 315 day with meals mg-250 unit tabletIndications: Closed fracture of right hip, initial encounter ([facility]) acetaminophen Take 2 tablets 30 tablet 0 A ctive (TYLENOL) 325 mg (650 mg) by mouth tabletIndications: every 6 hours as Closed fracture of needed for mild right hip, initial pain, moderate encounter (HCC), pain or severe Postoperative state pain nitroglycerin CR Take 1 capsule 60 capsule 0 Active (NITRO-BID) 6.5 mg (6.5 mg) by mouth capsuleIndications: 2 times a day Coronary arteriosclerosis enoxaparin (LOVENOX) Inject 40 mg 10 mL 0 07/16/ Active 40 mg syringe (100 subcutaneously 1 2020 mg/mL) subcutaneous time per day for injection 23 days solutionIndications: Closed fracture of right hip, initial encounter ([facility]), Postoperative state rosuvastatin (CRESTOR) Take 1 tablet (40 30 tablet 0 07/22/ Active 40 mg mg) by mouth 2020 tabletIndications: every night at Hyperlipidemia, bedtime unspecified hyperlipidemia type atenolol (TENORMIN) Take 1 tablet 30 tablet 0 06/22/2 07/22/ Active 100 mg (100 mg) by mouth 2020 tabletIndications: every night at Essential hypertension bedtime amLODIPine (NORVASC) Take 0.5 tablets 15 tablet 0 06/22/2 / Active 10 mg (5 mg) by mouth 1 2020 tabletIndications: time per day Essential hypertension polyethylene glycol Take 1 packet by 10 packet 0 Active (MIRALAX) 17 g mouth 1 time a packetIndications: day as needed for Closed fracture of constipation right hip, initial Dissolve in 4 to encounter ([facility]), 8 ounces of Postoperative state water, juice, soda, coffee, tea. senna-docusate sodium Take 1 tablet by 60 tablet 0 1 / Active (SENOKOT-S;PERICOLACE) mouth 2 times a 2 021 8.6-50 MG day Hold for >2-3 tabletIndications: BMs per day or Closed fracture of for loose stools right hip, initial encounter ([facility]), Postoperative state potassium chloride Take 1 tablet (10 90 tablet 3 Active (KLOR-CON M10) 10 MEQ mEq) by mouth 1 021 CR tablet time per day Vitamin D, Take 2 tablets by 60 each 0 06/22/2 07/22/ A ctive Cholecalciferol, 10 mouth 1 time per 1 MCG (400 UNIT) day TABSIndications: Closed fracture of right hip, initial encounter ([facility]) acetaminophen Take 650 mg by 0 06/16/ D iscontinued (TYLENOL) 325 mg mouth 1 time a 2020 (data entry representative tablet day as needed for er ror) mild pain or headache aspirin 81 mg enteric Take 81 mg by 0 7/ Discontinued coated tablet mouth 1 time per 2020 (data entry representative day error) amLODIPine (NORVASC) Take 5 mg by 0 06/22/ Discontinued 10 mg tablet mouth 1 time per 2020 (Reorder) day atenolol (TENORMIN) Take 100 mg by 0 06/22 / Discontinued 100 mg tablet mouth every night 2020 (Reorder) at bedtime calcium Take 2 tablets by 0 06/22/ Di scontinued carbonate-vitamin D mouth 1 time a 2020 (Stop Taking (OSCAL 250 + VIT D) day with at Discharge) 250 mg-125 unit tablet breakfast potassium chloride Take 10 mEq by 0 06/22/ Discontinued (KLOR-CON M10) 10 MEQ mouth 1 time per 2 021 (Reorder) CR tablet day risperiDONE Take 0.5 mg by 0 06/16/ Dis continued (RISPERDAL) 1 mg mouth 2 times a 2020 (data entry representative tablet day error) rosuvastatin (CRESTOR) Take 40 mg by 0 / Discontinued 40 mg tablet mouth every night 2020 (Reorder) at bedtime Vitamin D, Take 2 tablets by 0 06/22/ D iscontinued Cholecalciferol, 400 mouth 1 time per 20 21 (Reorder) UNITS TABS day nitroglycerin CR Take 6.5 mg by 0 06/22/ Discontinued (NITRO-BID) 6.5 mg mouth 2 times a 2020 (Reorder) capsule day risperiDONE Take 1 mg by 0 06/16/ Disco ntinued (RISPERDAL) 2 mg mouth 2 times a 2020 (data entry representative tablet day error) documented as of this encounter (statuses as of 06/22/2021) Active Problems Problem Noted Date Hip fracture 06/16/2021 Cognitive disorder 06/22/2016 Lewy body dementia 06/22/2016 Left renal mass 06/22/2016 Overview: 07/13/16: 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 Biopsy left renal mass with small perinephric hematoma. biopsy shows an oncocytic tumor. Last Assessment & Plan: The patient was also seen today by Dr. Chris sanchez. Reviewed results of CT scan and assured patient of good results of cryoablation procedure without evidence of residual tumor or recurrence. Also reviewed biopsy results regarding finding of onc ocytic tumor. Discussed ongoing follow up with next recheck in 5 months. She agrees with this plan. We will request for further services approval from [place]. Impaired fasting glucose OA (osteoarthritis) of knee HTN (hypertension) Coronary arteriosclerosis Varicose veins of both lower extremities Hyperlipidemia documented as of this encounter (statuses as of 06/22/2021) Social History Tobacco Use Types Packs/Day Years Used Date Never Smoker Smokeless Tobacco: Never Used Alcohol Use Standard Drinks/Week Comments No 0 (1 standard drink = 0.6 oz pure alcoho l) Alcohol Habits Answer Date Recorded How often do you have a drink containing alcohol? Never 06/17/2021 How many drinks containing alcohol do you have on a typical Not asked day when you are drinking? How often do you have six or more drinks on one occasion? Ne nicol 06/17/2021 Comment: Not asked Sex Assigned at Date Recorded Not on file documented as of this encounter Last Filed Vital Signs Vital Sign Reading Time Taken Comments Blood Pressure 165/59 06/22/2021 7:45 AM CDT Pulse 57 06/22/2021 7:45 AM CDT Temperature 36.5 C (97.7 F) 06/22/2021 7:45 AM CDT Respiratory Rate 14 06/22/2021 7:45 AM CDT Oxygen Saturation 93% 06/22/2021 7:45 AM CDT Inhaled Oxygen Concentration - - Weight 60 kg (132 lb 3.2 oz) 06/16/2021 7:39 PM CDT Height 162.6 cm (5' 4") 06/16/2021 7:39 PM CDT Body Mass Index 22.69 06/16/2021 7:39 PM CDT documented in this encounter Functional Status Functional Status Response Date of Assessment Is the person deaf or does he/she have serious difficulty No 07/12/2016 hearing? Is this person blind or does he/she have difficulty No 07/12/2016 seeing even when wearing glasses? Do you have difficulty with walking, balance, climbing Yes 06/17/2021 stairs, or had a fall in the last 3 months? documented as of this encounter Discharge Summaries Jayden Dutta MD - 06/22/2021 9:55 AM CDT Images from the original note were not included. Discharge Summary Patient ID: Dora Stern is a 85yr female Attending Physician: Jayden Dutta Discharging Provider Specialty: Adult Hospitalist Admit Date: 06/16/2021 Discharge Date: 06/22/2021 Primary Care Physician: LEANDRA Lang Code Status: FULL Discharge Diagnoses # Right intertrochanteric femur fracture secondary to a ground-level fall # Status post [facility] placement on 06/17/2021 # Postoperative acute blood loss anemia # Hypertension # Hyperlipidemia # Lewy body dementia # Coronary artery disease # Osteoarthritis # BLE varicose veins # Left-sided renal mass Hospital Course Dora Stern is an 85 year old female who was admitted on 06/16/2021 for further evaluation of righthip fracture. Patient lives with her daughter at home and had sustained a ground-level fall 5 days prior to her transfer from an outside facility to [facility]. Initial x-ray and CT scan showed right intertrochanteric femur fracture. Patient is now status post surgical stabilization of right hip fracturewith [facility] by Dr. Gómez on 06/17/2021. She tolerated the procedure and anesthesia without any intra-operative complications. See admission H&P, orthopedic surgery consult note, and operative report for further details. Postoperatively her chronic medical problems remained stable. She was found to be pleasantly confused due to her baseline dementia. Initially she did need a bedside sitter, which was discontinued 3 days ago. She did not require any PRN medications for behavioral disturbances. Her surgical pain wastreated with analgesics appropriately, currently treated with ice packs and Tylenol. She is not needing any narcotic medications. She worked with physical therapy and occupational therapy and made significant progress in terms of weightbearing and activity tolerance. They recommended STSNF priorto returning home. Patient was noted to have a drop in Hgb due to postoperative acute blood loss anemia, most likely dilutional factor also contributed to her anemia. Her hemoglobin has remained stable at 11.8 (06/20/2021). Pre-op Hgb on 06/16/2021 was 14.3. Surgical site is clean without any drainage or bleeding. Hgb can be rechecked at next routine follow-up Her blood pressure was stable on home amlodipine 5 mg daily and atenolol 100 mg at bedtime. Her homehydrochlorothiazide 25 mg daily was restarted at the time of discharge. Occasionally her systolic BPwas elevated likely in the setting of pain and stress. She had no complaints of angina while her home nitroglycerin CR 6.5 mg twice daily was continued. At the time of discharge, patient's vital signs are stable. Her pain is controlled on oral pain medications and ice packs. She is tolerating a diet with no nausea or vomiting, passing gas, having bowel movements. She is voiding well. Denies any symptoms of chest pain, shortness of breath, lightheadedness, dizziness. Case management assisted with discharge planning. Patient is deemed medically [facility]to [facility] for further recovery with a close follow-up post-op visit in orthopedic surgery clinic. -- DVT prophylaxis - Lovenox 40 mg SC daily x28 doses (started on 06/18/2021, last dose on 07/15/2021) -- Continue medications as per AVS -- Activity: as tolerated and WBAT RLE -- Follow-up with Dr. Gómez in 6 weeks -- Dressing changes and wound care per orthopedics. -- Bone health referral is in place Discharge planning and instructions were discussed in detail with patient's daughter Shanell. She verbalized understanding and all questions/concerns were addressed satisfactorily. Report given to receiving provider - Dr. Aniya Constantino Procedures Performed and Findings Procedure(s): SURGICAL STABILIZATION OF RIGHT HIP FRACTURE WITH HARDWARE - Wound Class: Clean Discharge Exam Vital Signs: Temp: 97.7 F (36.5 C) | BP: 165/59 | Pulse: 57 | Resp: 14 | Pain Ratin (out of 10) | Weight: 60 kg (132 lb 3.2 oz) | O2 Device: Room Air O2 Flow Rate (L/min): 3 l/min | SpO2: 93 % Intake and Output: 06/21 0700 - 06/22 0659 In: 540 [Oral:540] Out: 0 Physical Exam General: No apparent distress. Elderly female lying in bed HEENT: Normocephalic/Atraumatic. Normal conjunctivae. Pupils equal, round, and reactive to light. Cardiovascular: Normal rate, regular rhythm, audible S1/S2. No pedal edema. Palpable distal pulses. Pulmonary/Chest: Normal respiratory effort, clear breath sounds auscultated in all lung pugh. No adventitious sounds. Abdominal: Soft. Non-tender. Non-distended. Bowel sounds present. Musculoskeletal: Right hip, decreased range of motion. Wound site c/d/i. Appropriate minimal post-optenderness. Distal sensation and motor function intact. Neurological: Alert and oriented to person, place, and time. No focal findings. Dermatologic: Skin is warm and dry. No rash. Psychiatric: Affect, mood, behavior, speech, demeanor, judgement and thought content unremarkable. Consults CONSULT ORTHOPEDICS [facility] REFERRAL Discharge Disposition Discharge Medications Medication List START taking these medications acetaminophen 325 mg tablet Commonly known as: TYLENOL Take 2 tablets (650 mg) by mouth every 6 hours as needed for mild pain, moderate pain or severe pain calcium citrate-vitamin D 315 mg-250 unit tablet Commonly known as: CITRACAL + VIT D Take 1 tablet by mouth 2 times a day with meals enoxaparin 40 mg syringe (100 mg/mL) subcutaneous injection solution Commonly known as: LOVENOX Inject 40 mg subcutaneously 1 time per day for 23 days Start taking on: June 23, 2021 polyethylene glycol 17 g packet Commonly known as: MIRALAX Take 1 packet by mouth 1 time a day as needed for constipation Dissolve in 4 to 8 ounces of water, juice, soda, coffee, tea. senna-docusate sodium 8.6-50 MG tablet Commonly known as: SENOKOT-S;PERICOLACE Take 1 tablet by mouth 2 times a day Hold for >2-3 BMs per day or for loose stools CHANGE how you take these medications * vitamin D3 (cholecalciferol) 25 mcg (1000 unit) tablet Take 1 tablet (1,000 Units) by mouth 1 time per day What changed: You were already taking a medication with the same name, and this prescription was added. Make sure you understand how and when to take each. * Vitamin D (Cholecalciferol) 10 MCG (400 UNIT) Tabs Take 2 tablets by mouth 1 time per day What changed: Another medication with the same name was added. Make sure you understand how and whento take each. * This list has 2 medication(s) that are the same as other medications prescribed for you. Read thedirections carefully, and ask your doctor or other care provider to review them with you. CONTINUE taking these medications amLODIPine 10 mg tablet Commonly known as: NORVASC Take 0.5 tablets (5 mg) by mouth 1 time per day atenolol 100 mg tablet Commonly known as: TENORMIN Take 1 tablet (100 mg) by mouth every night at bedtime hydroCHLOROthiazide 25 mg tablet * multivitamin therapeutic with minerals tablet * multivitamin/lutein capsule nitroglycerin CR 6.5 mg capsule Commonly known as: NITRO-BID Take 1 capsule (6.5 mg) by mouth 2 times a day potassium chloride 10 MEQ CR tablet Commonly known as: KLOR-CON M10 PREVAGEN EXTRA STRENGTH PO rosuvastatin 40 mg tablet Commonly known as: CRESTOR Take 1 tablet (40 mg) by mouth every night at bedtime * This list has 2 medication(s) that are the same as other medications prescribed for you. Read thedirections carefully, and ask your doctor or other care provider to review them with you. STOP taking these medications calcium carbonate-vitamin D 250 mg-125 unit tablet Commonly known as: OSCAL 250 + VIT D Where to Get Your Medications These medications were sent to [facility] ([facility] [address] [address] [address] [address] acetaminophen 325 mg tablet amLODIPine 10 mg tablet atenolol 100 mg tablet enoxaparin 40 mg syringe (100 mg/mL) subcutaneous injection solution nitroglycerin CR 6.5 mg capsule polyethylene glycol 17 g packet rosuvastatin 40 mg tablet senna-docusate sodium 8.6-50 MG tablet Vitamin D (Cholecalciferol) 10 MCG (400 UNIT) Tabs Information about where to get these medications is not yet available Ask your nurse or doctor about these medications calcium citrate-vitamin D 315 mg-250 unit tablet vitamin D3 (cholecalciferol) 25 mcg (1000 unit) tablet Discharge Instructions See AVS for discharge instructions. Tests Pending at Discharge Follow-Up Scheduled See AVS for Follow up appointments made Medical Decision Making The time spent on discharge coordination was greater than 30 minutes. documented in this encounter Medications at Time of Discharge Medication Sig Dispensed Refills Start Date End Date acetaminophen (TYLENOL) Take 2 tablets (650 30 tablet 0 325 mg tabletIndications: mg) by mouth every 6 Closed fracture of right hours as needed for hip, initial encounter mild pain, moderate (HCC), Postoperative pain or severe pain state nitroglycerin CR Take 1 capsule (6.5 60 capsule 0 06/22/2021 07/22/2021 (NITRO-BID) 6.5 mg mg) by mouth 2 times capsuleIndications: a day Coronary arteriosclerosis enoxaparin (LOVENOX) 40 Inject 40 mg 10 mL 0 06/23/2021 07/16/2021 mg syringe (100 mg/mL) subcutaneously 1 subcutaneous injection time per day for 23 solutionIndications: days Closed fracture of right hip, initial encounter ([facility]), Postoperative state rosuvastatin (CRESTOR) 40 Take 1 tablet (40 30 tablet 0 07/22/2021 mg tabletIndications: mg) by mouth every Hyperlipidemia, night at bedtime unspecified hyperlipidemia type atenolol (TENORMIN) 100 Take 1 tablet (100 30 tablet 0 06/1007/22/2021 mg tabletIndications: mg) by mouth every Essential hypertension night at bedtime amLODIPine (NORVASC) 10 Take 0.5 tablets (5 15 tablet 0 07/22/2021 mg tabletIndications: mg) by mouth 1 time Essential hypertension per day polyethylene glycol Take 1 packet by 10 packet 0 06/22/2021 (MIRALAX) 17 g mouth 1 time a day packetIndications: Closed as needed for fracture of right hip, constipation initial encounter ([facility]), Dissolve in 4 to 8 Postoperative state ounces of water, juice, soda, coffee, tea. senna-docusate sodium Take 1 tablet by 60 tablet 0 06/22/20 21 07/22/2021 (SENOKOT-S;PERICOLACE) mouth 2 times a day 8.6-50 MG Hold for >2-3 BMs tabletIndications: Closed per day or for loose fracture of right hip, stools initial encounter ([facility]), Postoperative state potassium chloride Take 1 tablet (10 90 tablet 3 06/22/2021 (KLOR-CON M10) 10 MEQ CR mEq) by mouth 1 time tablet per day Vitamin D, Take 2 tablets by 60 each 0 06/22/2021 021 Cholecalciferol, 10 MCG mouth 1 time per day (400 UNIT) TABSIndications: Closed fracture of right hip, initial encounter ([facility]) multivitamin/lutein Take 1 capsule by 0 (PROSIGHT;OCUVITE-LUTEIN) mouth 1 time per day capsule Apoaequorin (PREVAGEN Take 1 capsule by 0 EXTRA STRENGTH PO) mouth 1 time per day hydrochlorothiazide 25 mg Take 25 mg by mouth 0 tablet 1 time per day Multiple Take 1 tablet by 0 Vitamins-Minerals mouth 1 time per day (MULTIVITAMIN THERAPEUTIC WITH MINERALS) tablet vitamin D3, Take 1 tablet (1,000 30 tablet 0 06/22/2021 cholecalciferol, 25 mcg Units) by mouth 1 (1000 unit) time per day tabletIndications: Closed fracture of right hip, initial encounter ([facility]) calcium citrate-vitamin D Take 1 tablet by 0 06/10 (CITRACAL + VIT D) 315 mouth 2 times a day mg-250 unit with meals tabletIndications: Closed fracture of right hip, initial encounter ([facility]) documented as of this encounter Progress Notes Edward Dey PA - 06/22/2021 9:27 AM CDT ORTHOPAEDIC POST OPERATIVE PROGRESS NOTE June 22, 2021 POD # 5 Right Hip Fracture Repair w/ [facility] Patient of Dr. Gómez S: Dora Stenr is a 85yr female recovering from surgery. Limited historian secondary to dementia.Mild pain noted. Patient is participating in PT/OT.Patient is urinating without difficulty. O: Temp Readings from Last 1 Encounters: 06/22/21 97.7 F (36.5 C) BP Readings from Last 1 Encounters: 06/22/21 165/59 Pulse Readings from Last 1 Encounters: 06/22/21 57 Gen: Patient in bed , alert and orientated, no apparent distress, well appearing Female Incision: no drainage. Dressing C/D/I. No signs of erythema or fluctuance. right LEG: Warm, well perfused. Palpable DP pulse present. Distal sensation intact to light touch from L3 to S1. Motor movements grossly intact with ankle dorsiflexion/plantarflexion and toe extension/flexion. No calf pain. Compartments soft. Lab Results Component Value Date WBC 8.4 06/16/2021 NUCRBC 0 06/16/2021 RBC 4.96 06/16/2021 HEMOGLOBIN 11.8 06/20/2021 HEMATOCRIT 43.2 06/16/2021 MCV 87.1 06/16/2021 MCH 28.8 06/16/2021 MCHC 33.1 06/16/2021 PLTCOUNT 354 06/16/2021 NEUTROPCT 76.2 06/16/2021 LYMPHSPCT 8.9 06/16/2021 MONOSPCT 8.3 06/16/2021 EOSPCT 4.3 06/16/2021 BASOPHILPCT 1.8 06/16/2021 Lab Results Component Value Date INR 1.1 06/16/2021 A/P: 1. s/p Right Hip Fracture Repair w/ [facility]: DVT prophylaxis: Lovenox Pain control: Controlled on current regimen Wound care: Change dressing as needed for drainage. Can leave on for 4 days if not draining. PT/OT: continue; Activity: as tolerated; WBAT Disposition/planning: continue cares; OK for discharge once cleared by medicine, therapies and CM has found placement. Follow up: 6 weeks with [facility] Edward MOBLEY-C enedict, Lulú Nicolas APRN-KICKBOXING INSTRUCTOR - 06/21/2021 8:53 AM CDT ORTHOPEDIC POST OPERATIVE PROGRESS NOTE June 21, 2021 4 Days Post-Op Status Post: Procedure(s): SURGICAL STABILIZATION OF RIGHT HIP FRACTURE WITH HARDWARE Patient of Dr. Gómez S: Dora Stern is a 85yr female recovering from surgery, she is a limited historian secondary to a history of dementia. She denies CP, SOB, N/V, Fever or Chills, numbness/tingling. Reports a good appetite. PT/OT: Following Pain: Denies pain at this time Has had BM noted since surgery. Urinating without difficulty. O: Temp Readings from Last 1 Encounters: 06/21/21 97.6 F (36.4 C) BP Readings from Last 1 Encounters: 06/21/21 147/59 Pulse Readings from Last 1 Encounters: 06/21/21 55 Gen: Sitting up in chair, alert and orientated to self, no apparent distress Incision: no drainage. Dressing clean, dry, and intact. right HIP: Warm, well perfused. Brisk capillary refill noted. Sensation intact to light touch distally. Homans negative, no calf pain bilaterally. Compartments soft and compressible. DP and PT pulses are palpable. Motor grossly intact, able to PF/DF ankle and wiggle toes. No tenderness to palpation over hip. Lab Results Component Value Date WBC 8.4 06/16/2021 NUCRBC 0 06/16/2021 RBC 4.96 06/16/2021 HEMOGLOBIN 11.8 06/20/2021 HEMATOCRIT 43.2 06/16/2021 MCV 87.1 06/16/2021 MCH 28.8 06/16/2021 MCHC 33.1 06/16/2021 PLTCOUNT 354 06/16/2021 NEUTROPCT 76.2 06/16/2021 LYMPHSPCT 8.9 06/16/2021 MONOSPCT 8.3 06/16/2021 EOSPCT 4.3 06/16/2021 BASOPHILPCT 1.8 06/16/2021 Lab Results Component Value Date INR 1.1 06/16/2021 A/P: 1. s/p SURGICAL STABILIZATION OF RIGHT HIP FRACTURE WITH HARDWARE: DVT prophylaxis: Lovenox x28 days total post operatively Pain control: Continue current regimen Wound care: Change dressing every 7 days or sooner if needed due to drainage PT/OT: continue; Activity: as tolerated; WBAT to RLE Disposition/planning: continue cares; Per Orthopedics, clear for discharge to appropriate setting when available and medically stable. Follow up: [address] Gómez and [facility] Lulú Garcia APRN, TOY STUFFER-C Orthopedic Surgery Alberto Dallas MD - 06/21/2021 1:[address] [facility] [facility] PATIENT NAME: DORA STERN DATE OF SERVICE: 06/21/2021 JORGE: [id number] Ms. Dora Stern is an 85-year-old female admitted on 06/16/2021 after a fall a few days ago and has been having pain in the right hip and diagnosed to have a hip fracture. IMPRESSION AND PLAN: 1. Right intertrochanteric femur fracture, status post DHS placement. The patient is currently doing well. She has some pain, but reasonably controlled with current pain regimen. Physical therapyand occupational therapy have evaluated and waiting for final recommendations. Orthopedics is following. 2. Acute blood loss anemia. Hemoglobin is stable. 3. Hypertension. Blood pressures are well controlled. Continue with amlodipine. 4. Lewy body dementia. The patient is confused at baseline, but otherwise has remained calm and doing well. The bedside sitter is discontinued 2 days ago. Will continue to monitor. Otherwise, not required any p.r.n. medications. 5. DVT prophylaxis with Lovenox. 6. Hyperlipidemia, on Crestor. SUBJECTIVE: Patient is feeling okay. Complaining of some soreness in the surgical area. Otherwise, seen sitting comfortable in the chair and not agitated. No other acute events happened overnight. REVIEW OF SYSTEMS: GENERAL: No fevers or chills. RESPIRATORY: No cough. CARDIOVASCULAR: No chest pain. GASTROINTESTINAL: No nausea or vomiting. EXTREMITIES: Pain at the surgical site. VITAL SIGNS: Reviewed. MEDICATIONS: Reviewed and adjusted. LABS AND IMAGING STUDIES: Reviewed. PHYSICAL EXAMINATION: GENERAL: The elderly female is seen sitting comfortable in chair, not in any obvious distress. CARDIOVASCULAR: S1, S2 heard. No murmurs or gallops. LUNGS: Air entry is present on both sides. No wheezing or creps. ABDOMEN: Soft, flat, nontender. No organomegaly. CENTRAL NERVOUS SYSTEM: Awake, alert, oriented to self, not exactly to the time or place. EXTREMITIES: No pedal edema. Mild tenderness is noted on the incision. DERMATOLOGICAL: Warm and moist skin noted. Alberto Dallas MD Receipt: [id number] Trans ID: [id number]/[facility] [place] CAN CONVEYOR FEEDER CAN CONVEYOR FEEDER hoAlberto pugh MD - 06/20/2021 5:[address] [facility] PATIENT NAME: DORA STERN DATE OF SERVICE: 06/20/2021 JORGE: [id number] Ms. Dora Stern is an 85-year-old female admitted on 06/16/2021 with pain of her right hip after a fall and suffered a right hip femoral fracture. IMPRESSION AND PLAN: 1. Right intertrochanteric femur fracture, status post dynamic hip screw placement. The patient iscurrently doing well. Pain is well controlled. Physical therapy and occupational therapy have evaluated and recommended a half-way home. The case management is working on placement. 2. Lewy body dementia/cognitive impairment. The patient has significant memory problem at baseline. The patient is calm and has not been having any behavioral issues & off sitter since yesterday. Continue with bed alarm and other fall precautions. 3. Hypertension. Blood pressures are well controlled. Continue with amlodipine and atenolol. 4. Hyperlipidemia, on Crestor. 5. DVT prophylaxis with Lovenox. 6. Acute blood loss anemia. Hb is stable around 11.8. we will continue to monitor. No need for any transfusion. SUBJECTIVE: Patient is feeling okay. Complaining of some pain in hip on moving or walking, but otherwise doing well. Pt is calm & has not been trying to get out of bed or chair. Sitter was d/c`d yesterday. Patient has a significant memory problem and does not know where she is at. REVIEW OF SYSTEMS: GENERAL: Generalized weakness. No fever or chills. RESPIRATORY: No cough. CARDIOVASCULAR: No chest pain. GASTROINTESTINAL: No nausea or vomiting. EXTREMITIES: As above. VITAL SIGNS: Reviewed. MEDICATIONS: Reviewed and adjusted. LABS AND IMAGING STUDIES: Reviewed. PHYSICAL EXAMINATION: GENERAL: The elderly female is seen lying comfortable in the bed, not in any obvious distress. CARDIOVASCULAR: S1, S2 heard. No murmurs or gallops. LUNGS: Air entry is present on both sides. No wheezing or creps. ABDOMEN: Soft, flat, nontender. No organomegaly. CENTRAL NERVOUS SYSTEM: Awake, alert, oriented to self, not exactly to the time or place. EXTREMITIES: Tenderness is noted on the right hip. Pulses are palpable. No pedal edema. DERMATOLOGICAL: Warm and moist skin noted. Alberto Dallas MD Lala Araya APRN-NING - 06/20/2021 7:17 AM CDT ORTHOPEDIC POST OPERATIVE PROGRESS NOTE June 20, 2021 3 Days Post-Op Status Post: Procedure(s): SURGICAL STABILIZATION OF RIGHT HIP FRACTURE WITH HARDWARE Patient of Dr. Gómez S: Dora Stern is a 85yr female recovering from surgery, denies CP, SOB, N/V, Fever or Chills, numbness/tingling. Reports a good appetite. Pain: reports no pain at rest BM noted since surgery. Urinating without difficulty. O: Temp Readings from Last 1 Encounters: 06/20/21 98.4 F (36.9 C) BP Readings from Last 1 Encounters: 06/20/21 111/64 Pulse Readings from Last 1 Encounters: 06/20/21 57 Gen: patient resting comfortably in chair, alert and orientated to person, no apparent distress Incision: no drainage. Dressing C/D/I. right HIP: Warm, well perfused. Brisk capillary refill noted. Sensation intact to light touch.Homans negative, no calf pain bilaterally. Compartments soft and compressible. DP and PT pulses are palpable. Motor grossly intact, able to PF/DF ankle and wiggle toes. Lab Results Component Value Date WBC 8.4 06/16/2021 NUCRBC 0 06/16/2021 RBC 4.96 06/16/2021 HEMOGLOBIN 11.8 06/20/2021 HEMATOCRIT 43.2 06/16/2021 MCV 87.1 06/16/2021 MCH 28.8 06/16/2021 MCHC 33.1 06/16/2021 PLTCOUNT 354 06/16/2021 NEUTROPCT 76.2 06/16/2021 LYMPHSPCT 8.9 06/16/2021 MONOSPCT 8.3 06/16/2021 EOSPCT 4.3 06/16/2021 BASOPHILPCT 1.8 06/16/2021 Lab Results Component Value Date INR 1.1 06/16/2021 A/P: 1. s/p Right Hip Fracture Repair w/ DHS: DVT prophylaxis: Lovenox Pain control: Controlled on current regimen Wound care: Dressing changed yesterday, leave incision covered, may change every 7 days or as needed PT/OT: continue; Activity: as tolerated; WBAT Disposition/planning: continue cares; CM planning on TCU upon discharge Follow up: 2 weeks with [facility] and 6 weeks with [facility]. Acute Blood loss Anemia: Expected COREY Wan Pediatric Orthopedic Surgery Pager #[phone] Edward Salinas PA - 06/19/2021 9:38 AM CDT ORTHOPAEDIC POST OPERATIVE PROGRESS NOTE June 19, 2021 POD # 2 Right Hip Fx Repair w/ DHS Patient of Dr. Gómez S: Dora Stern is a 85yr female recovering from surgery, denies CP, SOB, N/V, Fever or Chills, numbness/tingling. Patient is participating in PT/OT. Pain is controlled on current regimen. Patient is passing flatus/having a BM. Patient is urinating without difficulty. O: Temp Readings from Last 1 Encounters: 06/19/21 98.3 F (36.8 C) BP Readings from Last 1 Encounters: 06/19/21 140/62 Pulse Readings from Last 1 Encounters: 06/19/21 63 Gen: Patient in bed , alert and orientated, no apparent distress, well appearing Female Incision: no drainage. Dressing C/D/I. No signs of erythema or fluctuance. right LEG: Warm, well perfused. Palpable DP pulse present. Distal sensation intact to light touch from L3 to S1. Motor movements grossly intact with ankle dorsiflexion/plantarflexion and toe extension/flexion. No calf pain. Compartments soft. Lab Results Component Value Date WBC 8.4 06/16/2021 NUCRBC 0 06/16/2021 RBC 4.96 06/16/2021 HEMOGLOBIN 12.3 06/19/2021 HEMATOCRIT 43.2 06/16/2021 MCV 87.1 06/16/2021 MCH 28.8 06/16/2021 MCHC 33.1 06/16/2021 PLTCOUNT 354 06/16/2021 NEUTROPCT 76.2 06/16/2021 LYMPHSPCT 8.9 06/16/2021 MONOSPCT 8.3 06/16/2021 EOSPCT 4.3 06/16/2021 BASOPHILPCT 1.8 06/16/2021 Lab Results Component Value Date INR 1.1 06/16/2021 A/P: 1. s/p Right Hip Fracture Repair w/ DHS: DVT prophylaxis: Lovenox Pain control: Controlled on current regimen Wound care: Dressing changed today. PT/OT: continue; Activity: as tolerated; WBAT Disposition/planning: continue cares; CM planning on TCU upon discharge Follow up: 2 weeks with [facility] and 6 weeks with [facility]. Acute Blood loss Anemia: Expected Edward MOBLEY-C Alberto Fairchild MD - 06/19/2021 1:[address] [facility] PATIENT NAME: DORA STERN DATE OF SERVICE: 06/19/2021 JORGE: [id number] Ms. Dora Stern is an 85-year-old female admitted on 06/16/2021 with pain of her right hip after a fall and suffered a right hip femoral fracture. IMPRESSION AND PLAN: 1. Right intertrochanteric femur fracture, status post dynamic hip screw placement. The patient iscurrently doing well. Pain is well controlled. Physical therapy and occupational therapy have evaluated and recommended a half-way home. The case management is working on placement and once the sitter is off for 24 hours, the patient can be placed to half-way home. 2. Lewy body dementia/cognitive impairment. The patient is significantly disoriented and has a significant memory problem. He has a bedside sitter in place. Given the patient is calm and has not been having any behavioral issues, we will see how she does without a sitter and go from there. Continue with bed alarm and other fall precautions. 3. Hypertension. Blood pressures are well controlled. Continue with amlodipine and atenolol. 4. Hyperlipidemia, on Crestor. 5. DVT prophylaxis with Lovenox. SUBJECTIVE: Patient is feeling okay. Complaining of some pain on moving or walking, but otherwise doing well. Patient has a significant memory problem and does not know where she is at. Otherwise, bedside sitter is noted. REVIEW OF SYSTEMS: GENERAL: Generalized weakness. No fever or chills. RESPIRATORY: No cough. CARDIOVASCULAR: No chest pain. GASTROINTESTINAL: No nausea or vomiting. EXTREMITIES: As above. VITAL SIGNS: Reviewed. MEDICATIONS: Reviewed and adjusted. LABS AND IMAGING STUDIES: Reviewed. PHYSICAL EXAMINATION: GENERAL: The elderly female is seen lying comfortable in the bed, not in any obvious distress. CARDIOVASCULAR: S1, S2 heard. No murmurs or gallops. LUNGS: Air entry is present on both sides. No wheezing or creps. ABDOMEN: Soft, flat, nontender. No organomegaly. CENTRAL NERVOUS SYSTEM: Awake, alert, oriented to self, not exactly to the time or place. EXTREMITIES: Tenderness is noted on the right hip. Pulses are palpable. No pedal edema. DERMATOLOGICAL: Warm and moist skin noted. Alberto Dallas MD Receipt: [id number] Trans ID: [id number]/[facility] [place] CAN CONVEYOR FEEDER CST Melodie Wilburn MD - 06/18/2021 12:18 PM CDT Internal Medicine Progress note: Exam date: 06/18/2021 Impression and Plan: Right hip fracture. S/P Surgical stabilization of Rt hip with hardware. Pain control. PT/OT. Cognitive disorder and Lewy body dementia. monitor Hypertension. Continue Norvasc and atenolol Hyperlipidemia. Continue Crestor. H/Olacunar infarct left basal ganglia on head CT.No acute findings on Head CT outside facility. Monitor. CAD. On home Nitro. DVT prophylaxis. Lovenox Discussed with nursing staff Interval History: No acute events overnight No new complaints Review of system: Respiratory: No cough. Cardiovascular: No chest pain Abdomen: No abdominal pain Examination: General: No acute distress Respiratory: no retractions or cyanosis Cardiovascular: No JVD Abdomen: no abdominal distention Musculoskeletal: no edema Skin: No rash Joanne Barnes PA - 06/18/2021 8:33 AM CDT ORTHOPEDIC POST OPERATIVE PROGRESS NOTE June 18, 2021 POD # 1 Status Post: Procedure(s): SURGICAL STABILIZATION OF RIGHT HIP FRACTURE WITH HARDWARE Patient of Dr. Gómez S: Dora Stern is a 85yr female recovering from surgery. Pt is laying in bed. She is pleasantly confused. History is limited by dementia, she denies CP, SOB, N/V, numbness/tingling. She is laying in bed. No apparent distress. Sitter is at bedside. Pain appears to be well controlled. PT/OT: Orders placed, awaiting post op evaluation No BM noted since surgery. Urinating without difficulty. O: Temp Readings from Last 1 Encounters: 06/18/21 98.4 F (36.9 C) BP Readings from Last 1 Encounters: 06/18/21 149/67 Pulse Readings from Last 1 Encounters: 06/18/21 70 Gen: alert and orientated to person only, no apparent distress Incision: Surgical dressing in place to right lateral hip. no drainage. Dressing C/D/I. right HIP: Foot warm, well perfused. Brisk capillary refill noted. Sensation intact to light touch. No calf pain bilaterally. Compartments soft and compressible. DP and PT pulses are palpable. Motor grossly intact, able to PF/DF ankle and wiggle toes. Lab Results Component Value Date WBC 8.4 06/16/2021 NUCRBC 0 06/16/2021 RBC 4.96 06/16/2021 HEMOGLOBIN 12.9 06/18/2021 HEMATOCRIT 43.2 06/16/2021 MCV 87.1 06/16/2021 MCH 28.8 06/16/2021 MCHC 33.1 06/16/2021 PLTCOUNT 354 06/16/2021 NEUTROPCT 76.2 06/16/2021 LYMPHSPCT 8.9 06/16/2021 MONOSPCT 8.3 06/16/2021 EOSPCT 4.3 06/16/2021 BASOPHILPCT 1.8 06/16/2021 Lab Results Component Value Date INR 1.1 06/16/2021 A/P: 1. S/p SURGICAL STABILIZATION OF RIGHT HIP FRACTURE WITH HARDWARE DVT prophylaxis: Lovenox x 28 days post op Pain control: Continue Wound care: Leave dressing in place for 48-72 hours post op PT/OT: continue; WBAT RLE Activity: as tolerated; Disposition/planning: continue cares; Follow up: [address] Gómez or remote x-rays. LEANDRA Wheeler-C Pediatric Orthopedic Surgery Pager #[phone] Melodie Wilburn MD - 06/17/2021 12:16 PM CDT Internal Medicine Progress note: Exam date: 06/17/2021 Impression and Plan: Right hip fracture. Pain control. NPO. Orthopedics consult. Plan for surgical repair today Patient is slow to evaluate risk for moderate risk procedure. Medically optimized. Cognitive disorder and Lewy body dementia. monitor Hypertension. Continue Norvasc and atenolol Hyperlipidemia. Continue Crestor. H/O lacunar infarct left basal ganglia on head CT. No acute findings on Head CT outside facility. Monitor. CAD. On home Nitro. I discussed plan of care with patient Discussed with nursing staff Interval History: somnolent Review of system: Unable to provide Examination: General: No acute distress Respiratory: no retractions or cyanosis Cardiovascular: No JVD Abdomen: no abdominal distention Musculoskeletal: no edema Skin: No rash Modesta Gonzalez, PHARM D - 06/16/2021 9:04 PM CDT 06/16/2021 9:04 PM CDT - Patient was seen by pharmacy med reconciliation team HOME MEDICATIONS have been reconciled and updated to match the patient's home usage based on interview with patient's daughter, Eric. Prior to Admission Medications Prescriptions Last Dose Informant Patient Reported? Taking? Multiple Vitamins-Minerals (MULTIVITAMIN THERAPEUTIC WITH MINERALS) tablet at AM Self Yes Yes Sig: Take 1 tablet by mouth 1 time per day Vitamin D, Cholecalciferol, 400 UNITS TABS at HS Self Yes Yes Sig: Take 2 tablets by mouth 1 time per day amLODIPine (NORVASC) 10 mg tablet at AM Self Yes Yes Sig: Take 5 mg by mouth 1 time per day atenolol (TENORMIN) 100 mg tablet at HS Self Yes Yes Sig: Take 100 mg by mouth every night at bedtime calcium carbonate-vitamin D (OSCAL 250 + VIT D) 250 mg-125 unit tablet at AM Self Yes Yes Sig: Take 2 tablets by mouth 1 time a day with breakfast hydrochlorothiazide 25 mg tablet at AM Self Yes Yes Sig: Take 25 mg by mouth 1 time per day multivitamin/lutein (PROSIGHT;OCUVITE-LUTEIN) capsule at AM Yes Yes Sig: Take 1 capsule by mouth 1 time per day nitroglycerin CR (NITRO-BID) 6.5 mg capsule Self Yes Yes Sig: Take 6.5 mg by mouth 2 times a day potassium chloride (KLOR-CON M10) 10 MEQ CR tablet at AM Self Yes Yes Sig: Take 10 mEq by mouth 1 time per day rosuvastatin (CRESTOR) 40 mg tablet at HS Self Yes Yes Sig: Take 40 mg by mouth every night at bedtime Facility-Administered Medications: None Modesta Gifford, PHARM D. documented in this encounter H&P Notes Melodie Ratliff MD - 06/16/2021 7:03 PM CDT History and Physical Dora Stern is a 85yr old female admitted on 06/16/2021. PCP: LEANDRA Lang HPI / Chief Complaint Patient is 85-year-old lady with past medical history of cognitive disorder Lewy body dementia hypertension hyperlipidemia who was transferred from outside facility today for evaluation of right hip fracture. Patient is confused and unable to provide history. Per medical records patient lives with her daughter and she was admitted after a fall at home and was found to have right hip fracture. Patient denies pain. Patient is not aware why she is at the hospital at this time. CT head in outside facility done 06/12/21 no acute intracranial findings. Probable lacunar infarct left basal ganglia. Assessment and plan Right hip fracture. Admit to inpatient. Pain control. NPO. Fall precautions. Orthopedics consult. Patient is slow to evaluate risk for moderate risk procedure. Medically optimized. Cognitive disorder and Lewy body dementia. Monitor for hospital acquired delirium. Delirium order set. Hypertension. Continue Norvasc and atenolol Hyperlipidemia. Continue Crestor. H/O lacunar infarct left basal ganglia on head CT. No acute findings on Head CT outside facility. Monitor. CAD. On home Nitro. History Patient Active Problem List Diagnosis Cognitive disorder Lewy body dementia (HCC) Impaired fasting glucose OA (osteoarthritis) of knee HTN (hypertension) Coronary arteriosclerosis Varicose veins of both lower extremities Hyperlipidemia Left renal mass Hip fracture (HCC) Prior to Admission Medications Prescriptions Last Dose Informant Patient Reported? Taking? Multiple Vitamins-Minerals (MULTIVITAMIN THERAPEUTIC WITH MINERALS) tablet Self Yes No Sig: Take 1 tablet by mouth 1 time per day Vitamin D, Cholecalciferol, 400 UNITS TABS Self Yes No Sig: Take 2 tablets by mouth 1 time per day acetaminophen (TYLENOL) 325 mg tablet Self Yes No Sig: Take 650 mg by mouth 1 time a day as needed for mild pain or headache amLODIPine (NORVASC) 10 mg tablet Self Yes No Sig: Take 5 mg by mouth 1 time per day aspirin 81 mg enteric coated tablet Self Yes No Sig: Take 81 mg by mouth 1 time per day atenolol (TENORMIN) 100 mg tablet Self Yes No Sig: Take 100 mg by mouth every night at bedtime calcium carbonate-vitamin D (OSCAL 250 + VIT D) 250 mg-125 unit tablet Self Yes No Sig: Take 2 tablets by mouth 1 time a day with breakfast hydrochlorothiazide 25 mg tablet Self Yes No Sig: Take 25 mg by mouth 1 time per day nitroglycerin CR (NITRO-BID) 6.5 mg capsule Self Yes No Sig: Take 6.5 mg by mouth 2 times a day potassium chloride (KLOR-CON M10) 10 MEQ CR tablet Self Yes No Sig: Take 10 mEq by mouth 1 time per day risperiDONE (RISPERDAL) 2 mg tablet Yes No Sig: Take 1 mg by mouth 2 times a day rosuvastatin (CRESTOR) 40 mg tablet Self Yes No Sig: Take 40 mg by mouth every night at bedtime Facility-Administered Medications: None Allergies Allergen Reactions Colestipol Hcl Unknown/Not Verified Fosamax [Alendronic Acid] Unknown/Not Verified Morphine Other (Specify in Comments) Hallucinates Niacin [Isopropyl Nicotinate] Unknown/Not Verified Past Medical History: Diagnosis Date Actinic keratosis Cognitive disorder 06/22/2016 Coronary arteriosclerosis Delusions Hallucinations HTN (hypertension) Hyperlipidemia Impaired fasting glucose Incisional hernia Left renal mass 06/22/2016 left Lewy body dementia 06/22/2016 Lung mass right Myocardial infarction approx 10+ years ago treated medically in [place] OA (osteoarthritis) of knee Osteoporosis Tremor Varicose veins of both lower extremities Past Surgical History: Procedure Laterality Date APPENDECTOMY HERNIA REPAIR abdominal HYSTERECTOMY KNEE SURGERY Bilateral total knees 10 years apart TONSILLECTOMY Family History Problem Relation Age of Onset Hypertension Mother Heart Attack Mother Hypertension Father Heart Attack Sister Social History Socioeconomic History Marital status: Spouse name: Not on file Number of children: Not on file Years of education: Not on file Highest education level: Not on file Tobacco Use Smoking status: Never Smoker Smokeless tobacco: Never Used Substance and Sexual Activity Alcohol use: No Drug use: No Social History Narrative Lives in [place] with only daughter Eric; in 1972 comitted suicide due to prostate cancer Was 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 Social Determinants of Health Physical Activity: Days of Exercise per Week: Minutes of Exercise per Session: Stress: Feeling of Stress : Social Connections: Frequency of Communication with Friends and Family: Frequency of Social Gatherings with Friends and Family: Attends Muslim Services: Active Member of Clubs or Organizations: Attends Club or Organization Meetings: Marital Status: Intimate Partner Violence: Fear of Current or Ex-Partner: Emotionally Abused: Physically Abused: Sexually Abused: Financial Resource Strain: Difficulty of Paying Living Expenses: Food Insecurity: Worried About Running Out of Food in the Last Year: Ran Out of Food in the Last Year: Transportation Needs: Lack of Transportation (Medical): Lack of Transportation (Non-Medical): Review of Systems Review of Systems Unable to perform ROS: Dementia Admission Vital Signs Temp: 97.8 F (36.6 C) BP: 180/83 Pulse: 66 Resp: 16 (out of 10) Weight: 60 kg (132 lb 3.2 oz) O2 Device: Room Air SpO2: 94 % Height: 162.6 cm (5' 4") Physical Exam Constitutional: General: She is not in acute distress. Eyes: General: No scleral icterus. Conjunctiva/sclera: Conjunctivae normal. Neck: Thyroid: No thyromegaly. Cardiovascular: Rate and Rhythm: Normal rate and regular rhythm. Heart sounds: Normal heart sounds. Pulmonary: Effort: Pulmonary effort is normal. Breath sounds: Normal breath sounds. Abdominal: Palpations: Abdomen is soft. Tenderness: There is no abdominal tenderness. There is no guarding or rebound. Musculoskeletal: General: No tenderness. Normal range of motion. Lymphadenopathy: Cervical: No cervical adenopathy. Skin: General: Skin is warm and dry. Findings: No erythema or rash. Neurological: Mental Status: She is alert. Cranial Nerves: No cranial nerve deficit. Psychiatric: Behavior: Behavior normal. documented in this encounter Consult Notes Blake Ambrocio MD - 06/16/2021 8:15 PM CDT Orthopedic Consult Note Assessment and plan: #Right intertrochanteric hip fracture Patient is 5 days out from ground-level fall, initial x-ray and CT scan showed greater trochantericfracture. MRI was obtained and revealed an occult intertroch fracture of the right hip. Patient has baseline dementia but is ambulatory with a cane at baseline and lives with her daughter. Patient has been guarding right hip, nonambulatory, and cares have been difficult since her fall. May benefitfrom surgical fixation to allow her to get back to baseline function and aid with care at home. Hx was discussed with her daughter over the phone (Brenda). Admit with medicine team N.p.o. at midnight Type and screen Bedrest Hold morning anticoagulation dose X-rays right knee HPI/subjective: Patient is a 85-year-old female with Lewy body dementia, hypertension, hyperlipidemia. [place]-level fall on . Her daughter did not witness the fall but she heard her fall from the other room. She believe she tripped on the carpet. She does not b elieve there is loss of consciousness. Over the next 12 hours the patient was able to ambulate but seemed to be favoring her right hip. The next morning the patient was not moving her right lower extremity when her daughter tried to help with daily cares. At this time they presented to the local emergency department where x-rays and CT were obtained which showed a greater troch fracture but no obvious intertrochanteric extension. MRI was obtained to rule out occult intertrochanteric or femoral neck fracture. Results revealed a incomplete intertrochanteric fracture. She was sent to [place] for further medical management. At bedside patient is not appropriately answering questions. She does not endorse any numbness or tingling. At this time she states that she does not have pain. Objective: General: No apparent distress, afebrile, vital signs stable Right lower extremity: Pain with palpation at the greater trochanter, no pain with logroll Pain with range of motion of the hip and knee. Hip greater than knee Sensation intact entire right lower extremity Can actively dorsiflex and plantarflex great toe and ankle 2+ dp and pt pulse No pain with range of motion of the left lower extremity or bilateral upper extremities. Remainder of joints are atraumatic. No bruising or swelling. No pain with palpation of the cervical spinous processes. X-rays of the right hip show small intertrochanteric fracture with minimal displacement CT reveals superior aspect of greater trochanteric avulsion fracture MRI shows extension of fracture from greater trochanter to lesser trochanter without displacement Current Vital Signs Temp: 97.8 F (36.6 C) BP: 166/80 Pulse: 67 O2 Device: Room Air Resp: 16 (out of 10) Weight: 60 kg (132 lb 3.2 oz) SpO2: 94 % Today's Labs: Labs (Last day) No results found within the past day. Past Medical History: Diagnosis Date Actinic keratosis Cognitive disorder 06/22/2016 Coronary arteriosclerosis Delusions Hallucinations HTN (hypertension) Hyperlipidemia Impaired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 and ambulated 30 feet (forward and backward) using FWW with minimal assistance of 2. Improved tolerance to weightbearing and active movement on her R LE. Precautions/Medical History: No hip precautions. Lewy body dementia Family/personal health coach present for PT session: none (see flowsheet) Objective: Sitter present. Lab Results Component Value Date HEMOGLOBIN 11.8 06/20/2021 Supine to/from sit: Not assessed, up in chair upon arrival and departure Sit to/from stand: Moderate assist of 1 up to FWW. Assistance for hand placement/technique. Sitting Balance: Fair, after assist with positioning at EOB Standing Balance: Poor with front wheeled walker Gait: Ambulated 30 feet (15 forward/15 backward) using FWW with minimal assistance of 2. Short, step-to pattern.Significantly forward flexed posture. Responded well to basic cues. Improved tolerance to weight bearing today. Exercises: Patient completes ~10 reps of exercise with surgical LE which includes: ankle pumps and heel slides,abduction slide, SAQ, and SLR with verbal and tactile cues. No pain reported with exercise. Pain: (0-10 scale) At rest: none With Activity: no evidence of increased pain Other: Up in recliner at end of session, chair alarm in place. Education: Patient was educated on exercise progression, transfer techniques, and gait and mobility progressiontoday through explanation. She accepted teaching and will need reinforcement. Plan: Continue with PT plan of care. Time Treatment Occurred: 1005 Gait: 10 minutes Therapeutic Exercise: 13 minutes Therapeutic Activity: 0 minutes TOTAL TIMED CODES: 23 minutes TREATMENT TOTAL TIME: 23 minutes Care Planning - Brittany Lou RN - 06/20/2021 10:44 AM CDT Problem: RISK FOR FALLS Goal: FALL PREVENTION BEHAVIOR Description: DEFINITION: Personal or family dog daycare provider actions to minimize risk factors that might precipitate falls in the personal environment. 1=Never demonstrated, 2=Rarely demonstrated, 3=Sometimes demonstrated, 4=Often demonstrated, 5=Consistently demonstrated. Flowsheets (Taken 06/20/2021 1046) Initial Score: 2 Target Score: 4 Plan of care reviewed with: Patient Patient specific goal for the day: pt will use call light appropriately and call for help Achieve goal for stay: Within 24 hours Patient Progress: Pt orientated to person. Patient reorientated to situation, place, and time. Call light in reach. Frequent rounding. Goal: MOBILITY Description: DEFINITION: Ability to move purposefully in own environment independently with or without assistive device. 1=Severely compromised, 2=Substantially compromised, 3=Moderately compromised,4=Mildly compromised, 5=Not compromised. Flowsheets (Taken 06/20/2021 1040) Initial Score: 2 Target Score: 4 Plan of care reviewed with: Patient Patient specific goal for the day: Pt. will pivot to bedside commode. Patient specific goal for the stay: Will increase mobility and pass PT and OT goals for discharge Achieve goal for stay: By discharge Patient Progress: Pt. was repositioned in bed. Pivoted to the bedside commode with an assist of 2. Tolerated well. Problem: IMPAIRED SKIN INTEGRITY Goal: WOUND HEALING: PRIMARY INTENTION Description: DEFINITION: Extent of regeneration of cells and tissues following intentional closure. 1=None, 2=Limited, 3=Moderate, 4=Substantial, 5=Extensive (rate granulation, scar formation, decreased wound size). Flowsheets (Taken 06/20/2021 1043) Initial Score: 3 Target Score: 4 Plan of care reviewed with: Patient Patient specific goal for the day: dressing clean dry and intact Patient specific goal for the stay: incision to right hip will heal with no s/s of infection Achieve goal for stay: By discharge Patient Progress: pt has incision to Right hip, dressing is clean dry and intact. no s/s of infection noted. Problem: ACUTE PAIN Goal: CLIENT SATISFACTION: PAIN MANAGEMENT Description: DEFINITION: Extent of positive perception of nursing care to relieve pain. 1=Not at all satisfied, 2=Somewhat satisfied, 3=Moderately satisfied, 4=Very satisfied, 5=Completely satisfied. Flowsheets (Taken 06/20/2021 104) Initial Score: 1 Target Score: 4 Plan of care reviewed with: Patient Patient specific goal for the day: Able to manage pain with non pharmacological intervention Achieve goal for stay: By discharge Patient Progress: Maintained ice pack affected area, no c.o pain, tylenol given with relief, appeared comfortable. Will continue to monitor linical Team - Kirstin Ascencio RN - 06/20/2021 1:57 AM CDT Patient calm and cooperative. Did not try to get out of bed until she needed to use the commode. Assist of two provided. Turned q2. SCDs in place. are Planning - Kirstin Ascencio RN - 06/20/2021 1:57 AM CDT Problem: RISK FOR FALLS Goal: FALL PREVENTION BEHAVIOR Description: DEFINITION: Personal or family dog daycare provider actions to minimize risk factors that might precipitate falls in the personal environment. 1=Never demonstrated, 2=Rarely demonstrated, 3=Sometimes demonstrated, 4=Often demonstrated, 5=Consistently demonstrated. Outcome: NOC Rating 4 Flowsheets (Taken 06/20/2021 0156) Initial Score: 2 Target Score: 4 Plan of care reviewed with: Patient Patient specific goal for the day: pt will use call light appropriately and call for help Patient specific goal for the stay: pt will use call light appropriately and call for help when needing assistance Achieve goal for stay: Within 24 hours Patient Progress: Pt orientated to person. Patient reorientated to situation, place, and time. Call light in reach. Frequent rounding. hysical Therapy - Karin Arrieta, PT - 06/19/2021 3:38 PM CDT Physical Therapy OrthopedicTreatment Note Date: 06/19/2021 Subjective: Patient oriented to self, but not birthday. She was able to follow commands with the ex's. Recommendation/Assessment: Anticipate that patient will be ready to go SNF when medically ready. Patient able to ambulate 5 feet with FWW, moderate assist of 1, difficulty weightbearing on right LE toadvance left LE, improved with practice. Gait is slow paced and effortful. Precautions/Medical History: No hip precautions. Lewy body dementia Family/personal health coach present for PT session: none (see flowsheet) Objective: Sitter present. Lab Results Component Value Date HEMOGLOBIN 12.3 06/19/2021 Supine to/from sit: Supine to sit with moderate A of 1 and cues. Sit to/from stand: Moderate assist of 1 up to FWW from bed and recliner. Sitting Balance: Fair, after assist with positioning at EOB Standing Balance: Poor with front wheeled walker Gait: Ambulated 5 feet with FWW, moderate assist of 1. Difficulty weightbearing on right LE to advance left LE. Gait is slow paced and effortful. Ambulated 5 feet in parallel bars, significantly flexed trunk when trying to ambulate in parallel bars. Exercises: Patient completes 10 reps of exercise with surgical LE which includes: ankle pumps, quad/ham/glut sets of fair quality; heel slide, abduction slide,and SLR with moderate assistance; SAQ independently after set up. Requires frequent verbal and tactile cues to remain on task. Pain: (0-10 scale) At rest: none With Activity: "some" Other: Up in recliner at end of session, chair alarm in place. Education: Patient was educated on exercise progression, transfer techniques, and gait and mobility progressiontoday through explanation. She accepted teaching and will need reinforcement. Plan: Continue with PT plan of care. Time Treatment Occurred: 1505 Gait: 10 minutes Therapeutic Exercise: 15 minutes Therapeutic Activity: 05 minutes TOTAL TIMED CODES: 30 minutes TREATMENT TOTAL TIME: 30 minutes linical Team - Maria Isabel Hubbard RN - 06/19/2021 3:30 PM CDT Report given to Dorothea from [facility] in anticipation of discharge to this facility. ccupational Therapy - Teresa Spence OTR/L - 06/19/2021 3:30 PM CDT Attempted to see patient for OT in PM and patient declined due to fatigue. Per chart review, patientrecently up with physical therapy and no family present. OT will follow up as able/ appropriate. DEMETRIUS Quesada Alpha pager: [phone] Nutrition Team - Mena House RD - 06/19/2021 3:15 PM CDT Nutrition Note Patient admitted on 06/16/2021 6:28 PM for Active Problems: Hip fracture (HCC) Per EMR Malnutrition Screening Tool completed at admission, pt does not meet screening criteria for an increased potential for developing malnutrition with an MST Score of 0 (Score > 2 considered positive for nutrition risk). Nutrition screening revealed no difficulty eating or significant unintentional weight loss prior to admission. Past medical history noted and is not currently placing pt at increased nutrition risk. Height: 162.6 cm (5' 4") Weight: 60 kg (132 lb 3.2 oz) BMI: Body mass index is 22.69 kg/m. Nutrition (From admission, onward) Start Ordered 06/17/21 1610 ADVANCE DIET TOLERATED ONCE 06/17/21 1609 06/17/21 1610 Diet - Heart Healthy Now Question: Modified Diets Answer: Heart Healthy 06/17/21 1609 09/07/21 1905 CONTINUE DIET ORDERED (PANEL - NPO AFTER MIDNIGHT/CONTINUE DIET ORDERED) ONCE Comments: Patient to remain on previously ordered diet. Call if one is not available. 06/16/211902 Plan to monitor po intake adequacy during admission. If provider feels pt has nutritional concerns,please send Inpatient Dietitian consult with indication for referral. ALEJO Llamas Pager #[phone] are Planning - Maria Isabel Hubbard, DRAGAN - 06/19/2021 3:11 PM CDT Problem: RISK FOR FALLS Goal: FALL PREVENTION BEHAVIOR Description: DEFINITION: Personal or family dog daycare provider actions to minimize risk factors that might precipitate falls in the personal environment. 1=Never demonstrated, 2=Rarely demonstrated, 3=Sometimes demonstrated, 4=Often demonstrated, 5=Consistently demonstrated. Outcome: NOC Rating 4 Flowsheets (Taken 06/19/2021 1506) Initial Score: 2 Target Score: 4 Patient specific goal for the day: pt will use call light appropriately and call for help Patient specific goal for the stay: pt will use call light appropriately and call for help when needing assistance Achieve goal for stay: Within 24 hours Note: pt oriented to self, has had a sitter for the most of this shift, sitter has been discontinuedat this point,pt has been sleeping on and off, able to verbalize when in pain, but has not been ableto use call light and call for help, pt near charge nurses's station and will continue to monitor and reorient as needed. ase Mgmt - Neelima Barnett (DRAGAN Schreiber - 06/19/2021 2:24 PM CDT CASE MANAGEMENT / SOCIAL SERVICE TRANSITION PLAN - PROGRESS NOTE PLAN: Transfer to TCU/SNF when ready for discharge and sitter free Profiled to area around [place] by previous patient case coordinator [facility] could take her on Tuesday if she is off the sitter Awaiting Medical Doctor Recommendations for Transition Will Continue to Follow for Support and Progression Towards Final Transition Plan BARRIERS TO TRANSITION: Awaiting bed offers, sitter will be main concern Medical barriers:.Sitter, PT/OT, pain mgmt DOES ACCEPTING FACILITY REQUIRE COVID TESTING BEFORE DISCHARGE: N/A COMMENTS / PATIENT AND FAMILY RESPONSE TO PLAN: Patient's chart reviewed. Patient is a transfer from [facility] today CM called and visited with daughter, updated her on possible weaning of sitter over the weekend, CM will call providers and update on Sera Stern [phone] Per previous cm Patient's profile has been expanded to 30 [address] of [place]. [facility] and [facility] in [place] do not have open beds at this time. Updated notes have been sent. Will continue to follow, await treatment team recommendations, and provide discharge options as appropriate. IS PATIENT'S ADMISSION ASSOCIATED WITH TIA, ISCHEMIC, OR HEMORRHAGIC STROKE?: No PATIENT / SUBSTITUTE DECISION MAKER GOAL UPON TRANSITION: First Choice:Shelter Facility Swing Bed Transitional Care ANTICIPATED NEEDS UPON TRANSITION: Shelter Facility Swing Bed Transitional Care RESOURCE(S) PROVIDED: nothing needed at this time VERIFIED CORRECT PHARMACY IS ENTERED FOR DISCHARGE: No- TBD based on discharge plans. TRANSITION ROUNDING COMPLETED WITH THE FOLLOWING: Patient / family [employer]illed [employer] SIGNED: Ivonne Barnett RN (Dorea) [facility] [phone] [email or web address] ccupational Therapy - Adriane Metzger OTR/L - 06/19/2021 2:07 PM CDT Attempted to provide OT treatment. Pt sleeping soundly in bed. No family present. Per nursing staff,patient was up with assist x2 today and spent 2-3 hours in the chair. OT will continue to follow. hysical Therapy - Kendra Cazares PT - 06/19/2021 10:23 AM CDT Physical Therapy Orthopedic AM Treatment Note Date: 06/19/2021 Subjective: Patient oriented to self, but not birthday. She was able to follow commands with the ex's. Recommendation/Assessment: Anticipate that patient will be ready to go SNF when medically ready. Ptable to stand up from bed with assist of 1, but required assist of 2 from the commode. Precautions/Medical History: No hip precautions. Lewy body dementia Family/personal health coach present for PT session: none (see flowsheet) Objective: Sitter present. Lab Results Component Value Date HEMOGLOBIN 12.3 06/19/2021 Supine to/from sit: Supine to sit with min A of 1 and cues. Sit to/from stand: Moderate assist of 1 up to FWW from bed. Stand pivot bed to commode towards her L side using FWW with minimal assist of 1. Sit to stand from commode with maximal assist of 2. Cues for hand placement. Pt having difficulty extending her knees once she got to standing. The commode wasmoved from behind her and recliner was placed behind her. Sitting Balance: Poor. Leaning posterior. Standing Balance: Poor with front wheeled walker Gait: NA ROM: NA Exercises: Patient completes 10 reps of exercise with surgical LE which includes: ankle pumps, quad/ham/glut sets of fair quality; heel slide, abduction slide, SAQ, and SLR with no-minimal assistance. Pain: (0-10 scale) At rest: none With Activity: "some" Other: Up in recliner at end of session. Education: Patient was educated on exercise progression, transfer techniques, and gait and mobility progressiontoday through explanation. She accepted teaching and will need reinforcement. Plan: Continue with PT plan of care. Time Treatment Occurred: 10:30 Gait: 0 minutes Therapeutic Exercise: 15 minutes Therapeutic Activity: 15 minutes TOTAL TIMED CODES: 30 minutes TREATMENT TOTAL TIME: 30 minutes are Planning - June Montanez RN - 06/19/2021 3:10 AM CDT Problem: RISK FOR FALLS Goal: FALL PREVENTION BEHAVIOR Description: DEFINITION: Personal or family dog daycare provider actions to minimize risk factors that might precipitate falls in the personal environment. 1=Never demonstrated, 2=Rarely demonstrated, 3=Sometimes demonstrated, 4=Often demonstrated, 5=Consistently demonstrated. Outcome: NOC Rating 2 Flowsheets (Taken 06/19/2021 0306) Initial Score: 2 Target Score: 4 Plan of care reviewed with: Patient Patient specific goal for the day: pt will reteach nursing staff how to use call light. Patient Progress: Pt orientated to person. Patient reorientated to situation, place, and time. Call light in reach. 1:1 sitter. Goal: MOBILITY Description: DEFINITION: Ability to move purposefully in own environment independently with or without assistive device. 1=Severely compromised, 2=Substantially compromised, 3=Moderately compromised,4=Mildly compromised, 5=Not compromised. Outcome: NOC Rating 2 Flowsheets (Taken 06/19/2021 0306) Initial Score: 2 Target Score: 4 Plan of care reviewed with: Patient Patient specific goal for the day: Pt. will pivot to bedside commode. Patient Progress: Pt. was repositioned in bed. Pivoted to the bedside commode with an assist of 2. Tolerated well. are Planning - Naina Fernandez RN - 06/18/2021 8:14 PM CDT Problem: RISK FOR FALLS Goal: MOBILITY Description: DEFINITION: Ability to move purposefully in own environment independently with or without assistive device. 1=Severely compromised, 2=Substantially compromised, 3=Moderately compromised,4=Mildly compromised, 5=Not compromised. Flowsheets (Taken 06/18/20212011) Patient specific goal for the day: will be turned and repositioned Patient specific goal for the stay: Will increase mobility and pass PT and OT goals for discharge Achieve goal for stay: By discharge Patient Progress: Up to commode to void assist two persons for stability Problem: IMPAIRED SKIN INTEGRITY Goal: WOUND HEALING: PRIMARY INTENTION Description: DEFINITION: Extent of regeneration of cells and tissues following intentional closure. 1=None, 2=Limited, 3=Moderate, 4=Substantial, 5=Extensive (rate granulation, scar formation, decreased wound size). Flowsheets (Taken 06/18/20212011) Plan of care reviewed with: Patient Patient specific goal for the day: dressing clean dry and intact Patient specific goal for the stay: incision to right hip will heal with no s/s of infection Patient Progress: pt has incision to Right hip, dressing is clean dry and intact. no s/s of infection noted. are Planning - Emelyn Paiz, DRAGAN - 06/18/2021 1:32 PM CDT Problem: RISK FOR FALLS Goal: FALL PREVENTION BEHAVIOR Description: DEFINITION: Personal or family dog daycare provider actions to minimize risk factors that might precipitate falls in the personal environment. 1=Never demonstrated, 2=Rarely demonstrated, 3=Sometimes demonstrated, 4=Often demonstrated, 5=Consistently demonstrated. Outcome: NOC Rating 3 Flowsheets (Taken 06/18/2021 1328) Initial Score: 2 Target Score: 4 Plan of care reviewed with: Patient Achieve goal for stay: By discharge Patient Progress: pt oriented to person and situation. call light within reach. 1:1 sitter. pt onscheduled tylenol for pain. Problem: IMPAIRED SKIN INTEGRITY Goal: WOUND HEALING: PRIMARY INTENTION Description: DEFINITION: Extent of regeneration of cells and tissues following intentional closure. 1=None, 2=Limited, 3=Moderate, 4=Substantial, 5=Extensive (rate granulation, scar formation, decreased wound size). Outcome: NOC Rating 3 Flowsheets (Taken 06/18/2021 1328) Initial Score: 3 Target Score: 4 Plan of care reviewed with: Patient Patient specific goal for the day: dressing clean dry and intact Patient specific goal for the stay: incision to right hip will heal with no s/s of infection Patient Progress: pt has incision to Right hip, dressing is clean dry and intact. no s/s of infection noted. ase Alysia - Neelima Barnett RN (Dee) - 06/18/2021 12:28 PM CDT CASE MANAGEMENT / SOCIAL SERVICE TRANSITION PLAN - PROGRESS NOTE PLAN: Transfer to TCU/SNF when ready for discharge and sitter free Profiled to area around [place] by previous patient case coordinator Awaiting Medical Doctor Recommendations for Transition Will Continue to Follow for Support and Progression Towards Final Transition Plan BARRIERS TO TRANSITION: Awaiting bed offers, sitter will be main concern Medical barriers:.Sitter, PT/OT, pain mgmt DOES ACCEPTING FACILITY REQUIRE COVID TESTING BEFORE DISCHARGE: N/A COMMENTS / PATIENT AND FAMILY RESPONSE TO PLAN: Patient's chart reviewed. Patient is a transfer from [facility] today CM called and left voice mail for her daughter with my name and phone number Eric Stern [phone] Per previous cm Patient's profile has been expanded to [address] of [place]. [facility] do not have open beds at this time. Updated notes have been sent. Will continue to follow, await treatment team recommendations, and provide discharge options as appropriate. IS PATIENT'S ADMISSION ASSOCIATED WITH TIA, ISCHEMIC, OR HEMORRHAGIC STROKE?: No PATIENT / SUBSTITUTE DECISION MAKER GOAL UPON TRANSITION: First Choice: Shelter Facility Swing Bed Transitional Care ANTICIPATED NEEDS UPON TRANSITION: Shelter Facility Swing Bed Transitional Care RESOURCE(S) PROVIDED: nothing needed at this time VERIFIED CORRECT PHARMACY IS ENTERED FOR DISCHARGE: No - TBD based on discharge plans. TRANSITION ROUNDING COMPLETED WITH THE FOLLOWING: Patient / family Milled [employer] SIGNED: Ivonne Barnett RN (Dorea) [facility] [phone] [email or web address] Occupational Therapy - Layla Rosenthal OTR/L - 06/18/2021 11:48 AM CDT OT attempted to see pt for an initial evaluation this AM; however, Pt was not in the room and transferring to another location. Will follow up with initial OT evaluation as able/appropriate. DEMETRIUS Kwon Alpha Pager: [phone] linical Team - Emelyn Paiz RN - 06/18/2021 11:37 AM CDT Pt arrived from [facility] at via ambulance. A&O x self only. Oriented to call light, pain scale and environment. Aware of own limitations thus far. Sating >90% on currently. Denies chest pain, nausea, SOB at this time. Sitter in room at this time. Afebrile. Reporting adequate pain control at this time. Bed in lowest position, side rails up x 2, call light in reach. Will monitor. Upon Admission to [facility] skin assessment completed with Joana Noland RN Behind ears: WNL Elbows: blanchable redness Coccyx: blanchable redness, miplex in place Heels: blanchable redness WOCN consulted: N/A Plan/Intervention: TAPS system in place, prevalon boots on. hysical Therapy - Chidi Carranza, PT - 06/18/2021 9:37 AM CDT Physical Therapy Acute Inpatient Initial Evaluation ASSESSMENT/RECOMMENDATIONS Patient requires assist of 1-2 for bed mobility and transfers. Tolerating short distance ambulation up to 10' with front-wheeled walker. Anticipate Dora will benefit from continued skilled PT at a low intensity setting due to functional deficits below baseline. Will continue to follow acutely and update discharge recommendations as appropriate. 6-Clicks Basic Mobility Score: 12 Activity Prescription with Nursing: Assist patient to chair 3 times per day for 30 to 60 minutes or for all meals. Use Axof 2 and FWW Assist patient to complete exercises 10 times, 3 times per day (in sitting): air boxing, lift arms above head, straighten knees, marching. Encourage patients to do personal cares when sitting up. Use bathroom or commode rather than bedpan. Anticipated D/C Service needs: Low intensity setting Diagnosis: ICD-10-CM 1. Closed fracture of right hip, initial encounter ([facility]) S72.001A vitamin D3, cholecalciferol, 25 mcg (1000 unit) tablet calcium citrate-vitamin D (CITRACAL + VIT D) 315 mg-250 unit tablet Weight bearing status - as tolerated May shower - Leave incision open to air, may get wet if no drainage Prescription: Eval and Treat Admit Date: 06/16/2021 Physical therapy initiated: 06/18/2021 Pertinent Medical / Surgical History: Patient has a past medical history of Actinic keratosis, Cognitive disorder (06/22/2016), Coronary arteriosclerosis, Delusions (HCC), Hallucinations, HTN (hypertension), Hyperlipidemia, Impaired fasting glucose, Incisional hernia, Left renal mass (06/22/2016), Lewy body dementia (HCC) (06/22/2016), Lung mass, Myocardial infarction (HCC) (approx 10+ years ago), OA (osteoarthritis) of knee, Osteoporosis, Tremor, and Varicose veins of both lower extremities. Patient has a past surgical history that includes Knee Surgery (Bilateral); appendectomy; hysterectomy; tonsillectomy; hernia repair; and hip nailing (Right, 06/17/2021). Current status: Patient is 1 day(s) status-post R hip nailing. Precautions: No precautions Weight-bearing status: WBAT R LE SUBJECTIVE Social History: Patient is a poor historian and has difficulty providing subjective information. Patient lives: With daughter Home environment: House Steps: Unknown Prior Level of Function: Activities of Daily Living: Unknown Mobility: Unknown History of falls: Yes, at least one fall resulting in admission. Home O2: Unknown Adaptive equipment available: Unknown Patient Concerns: No reported concerns Patient/Family Goals: Unable to state goals OBJECTIVE Patient seen at bedside. Gait belt donned with activity. Up in chair at end of PT evaluation with call light in reach. 1:1 sitter present in room. Patient presents with peripheral IV, external cathter. Cognition: Alert and oriented to first name, day and month. Pain: Unable to rate on 0-10 pain scale. When asked if having pain she points to her R hip. Posture: WFL Observation: Resting in bed upon arrival. Range of Motion: Grossly limited at R hip s/p nailing. Refer to Occupational Therapy report for upper extremity range of motion. Strength: Unable to follow directions for muscle testing. Assists with heel slides and hip abduction/adduction in bed. Refer to Occupational Therapy report for upper extremity strength testing. Sensation: Grossly intact bilaterally. Bed Mobility: Supine to Sit: Minimal assist of 2 Sit to Supine: Not observed Comments: SBA for scooting forward to EOB and seated balance. Transfers: Sit to/from Stand: Moderate to maxA of 2 with front-wheeled walker. Needs cues for transfer techniques. Once standing, pivots to chair with Mona of 1. Poor safety awareness. Balance: Static Sitting Balance: Good Dynamic Sitting Balance: Good Static Standing with Assistive Device: Fair Dynamic Standing with Assistive Device: Fair (-) to Fair Gait: Ambulated in room ~ 10' with front-wheeled walker and Mona of 1. Chair follow. Forward flexedposture. Cues for forward head gaze. Step-to pattern. Assist for management of FWW. Education: Patient was educated on role of acute PT and PT POC today through explanation. They accepted teaching and will need reinforcement and demonstrated no evidence of learning. Interdisciplinary Communication: Spoke with interdisciplinary team members regarding patient plan ofcare. Therapeutic Exercises: Patient performed 10 repetitions of ankle pumps and heel sldies with R lowerextremity. Patient required Mona assist for exercises. Today's Treatment Evaluation: Completed Gait trainin minutes Therapeutic exercise: 0 minutes Therapeutic activity: 10 minutes TOTAL TIME-CODED MINUTES: 10 minutes TOTAL TREATMENT TIME: 30 minutes Treatment provided: Initial evaluation. Assist/cues with transfers and gait. GOALS Goals to be achieved by discharge. Patient will be aware of equipment recommendations as indicated in note to allow for safe mobility. Patient will transfer sit to/from supine with stand-by assistance. Patient will transfer from sit to/from stand with stand-by assistance and equipment as needed to progress to safe household mobility. Patient will be able to ambulate 100 feet using FWW with stand-by assistance to progress to safe functional mobility in the home. PLAN BID M-Sat; Daily [facility] Physical Therapy Services: bed mobility training education equipment gait training therapeutic activity therapeutic exercise transfer training Chidi Carranza PT, DPT [place] Pager: [phone] ATCEssie Saucedo LSW - 06/18/2021 9:20 AM CDT CASE MANAGEMENT / SOCIAL SERVICE TRANSITION PLAN - PROGRESS NOTE PLAN: Awaiting Medical Doctor Recommendations for Transition Will Continue to Follow for Support and Progression Towards Final Transition Plan BARRIERS TO TRANSITION: Awaiting Therapy Recommendations Medical barriers:.Sitter, PT/OT, pain mgmt DOES ACCEPTING FACILITY REQUIRE COVID TESTING BEFORE DISCHARGE: N/A COMMENTS / PATIENT AND FAMILY RESPONSE TO PLAN: Reviewed patient's medical record, Patient's profile has been expanded to [address] [place]. [facility] and [facility] do not have open beds at this time. Updated notes have been sent. Will continue to follow, await treatment team recommendations, and provide discharge options as appropriate. IS PATIENT'S ADMISSION ASSOCIATED WITH TIA, ISCHEMIC, OR HEMORRHAGIC STROKE?: No PATIENT / SUBSTITUTE DECISION MAKER GOAL UPON TRANSITION: First Choice: Shelter Facility Swing Bed Transitional Care ANTICIPATED NEEDS UPON TRANSITION: Shelter Facility Swing Bed Transitional Care RESOURCE(S) PROVIDED: nothing needed at this time VERIFIED CORRECT PHARMACY IS ENTERED FOR DISCHARGE: No - TBD based on discharge plans. TRANSITION ROUNDING COMPLETED WITH THE FOLLOWING: Patient / family Milled Rice Broker SIGNED: CITLALLI Del Cid Case Management - 8[facility] | Pager: [phone] are Planning - Barbara Guillen RN - 06/18/2021 9:00 AM CDT Problem: ACUTE PAIN Goal: CLIENT SATISFACTION: PAIN MANAGEMENT Description: DEFINITION: Extent of positive perception of nursing care to relieve pain. 1=Not at all satisfied, 2=Somewhat satisfied, 3=Moderately satisfied, 4=Very satisfied, 5=Completely satisfied. 06/18/20211650 by Barbara Guillen RN Outcome: NOC Rating 5 Flowsheets (Taken 06/18/20211650) Patient specific goal for the day: Able to manage pain with non pharmacological intervention Patient Progress: Maintained ice pack affected area, c/o mild pain pnce, tylenol given with relief, appeared comfortable. Will continue to monitor 06/18/20211648 by Barbara Guillen RN Outcome: NOC Rating 3 are Planning - Mihaela Lewis RN - 06/18/2021 5:38 AM CDT Problem: RISK FOR FALLS Goal: FALL PREVENTION BEHAVIOR Description: DEFINITION: Personal or family dog daycare provider actions to minimize risk factors that might precipitate falls in the personal environment. 1=Never demonstrated, 2=Rarely demonstrated, 3=Sometimes demonstrated, 4=Often demonstrated, 5=Consistently demonstrated. Outcome: NOC Rating 3 Flowsheets (Taken 06/18/2021 0536) Patient specific goal for the day: Patient will reteach nursing staff how to use call light. Patient specific goal for the stay: Patient will utilize call light appropriately when needing assistance. Pt will be fall free during hospital stay. Patient Progress: Pt did not use call light throughout shift. 1:1 sitter, confused most of the time,orientated to person. Pt has been sleeping during most of the shift. Pt dangled at edge of bed for 5minutes, tolerated fairly. On scheduled Tylenol for pain. linical Team - Barbara Guillen RN - 06/17/2021 4:30 PM CDT Attempted called daughter for updates, Unreachable. Voicemail left 750PM called daughter and left voicemail linical Team - Barbara Guillen RN - 06/17/2021 4:10 PM CDT 4 eyes skin assessment completed with Radha Rodriguez RN findings are: -1 2x2 mepilex dressing, intact, no drainage -1 PIV Right wrist area. -Coccyx, pink blanchable, mepilex currently in placed perative Note - Nirav Gómez MD - 06/17/2021 2:50 PM CDT Operative Report Dora Stern is a 85yr old female admitted on 06/16/2021 6:28 PM. Attending Physician: Melodie Ratliff MD Patient Type: Inpatient Operative Date: 06/17/2021 Surgeon: Nirav Gómez Surgeon(s) and Role: * Nirav Gómez MD - Primary * Tessa Beauchamp MD - Assisting Corrugated Sheet Material Sheeter: Refinery Operator Assistant : Bebe Gutierrez RN; Betina Miller, DRAGAN; Mercedes Ma, DRAGAN Scrub Person : Frank Rmairez, ODILON Trim Attacher: Lulú Garcia APRN-KICKBOXING INSTRUCTOR X-Ray Tech: Mere Mcgill RT(R) Anesthesia Type: spinal Anesthesia Staff: Anesthesiologist: Cesar Silva MD ROOFING PLANT SUPERVISOR: Adriane Grove, TURRET PUNCH OPERATOR-ROOFING PLANT SUPERVISOR SRNA: Rosalinda Daniels SRNA PreOP Diagnosis: Active Problems: Hip fracture (HCC) Right occult hip fx, nondisplaced IT PostOp Diagnosis: same Operative Procedure: Surgical stabilization of right hip fx with DHS Estimated Blood Loss: 50 mL Description of Procedure: Informed consent was obtained after discussion of the fracture, the operative plan and goals including indications, risks, benefits and post-op rehab plan. Questions were answered and I marked the operative site. The patient was then brought to the operating room and identified and operative plan and marked siteand antibiotics confirmed. Spinal anesthesia was administered. The patient was transferred to the [place] operating table and positioned supine gently against the perineal post with the RIGHT leg in a trac tion boot and the LEFT in the well leg theodore. The RIGHT hip and leg were sterilely prepped and draped and stop for safety was performed. Longitudinal incision was made from below the lateral flare of the greater trochanter distally, carried thru the IT band and then the posterior aspect of vastus lateralis exposing the proximal lateral femoral shaft. The fracture was nondisplaced. I placed a guide wire under fluoro into the center of the head on 2 views. I then measured and over reamed with the triple reamer. I then applied the screw and 130 degree sideplate and 2 shaft screws. Fluoro showed maintenance of satisfactory reduction and hardware placement. We irrigated and closed in layers. Dressings were applied and the patient was transferred to PACU. Post Op Plan: WT Bearing As Tolerated Antibiotics x 24hrs DVT prophylaxis F/U: 6 weeks in Ortho Clinic or remote xrays. Nirav Gómez MD [facility] [phone] My surgical physician career services assistant was an integral part of the case and had an essential role in assisting with retraction, placement of hardware, positioning of the limb, patient safety and surgical time. I used fluoroscopy to guide implant insertion during surgery, and make final assessment of the hardware after completion of the procedure. I interpreted all images. Implants: Implant Name Type Inv. Item Serial No. Technical Publications Manager Lot No. LRB No. Used Action SCREW IKER SLFTP 4.5X42MM N 214.842 EA1 - [id number] Ortho Other SCREW IKER SLFTP 4.5X42MM N [id number] [employer] DEPUY SYNTHES Right 1 Implanted PLATE DHS STD 130D 2HL 46MM N 281.021 EA1 - [id number] Ortho Other PLATE DHS STD 130D 2HL 46MM N 281.021 EA1 J&J DEPUY SYNTHES Right 1 Implanted SCREW IKER SLFTP 4.5X44MM N 214.844 EA1 - [id number] Ortho Other SCREW IKER SLFTP 4.5X44MM N [id number] J&J DEPUY SYNTHES Right 1 Implanted Nutrition Team - Karon Leavitt RD - 06/17/2021 2:24 PM CDT Nutrition Therapy Initial Assessment Hospital Day: 1 days Active Problems: #Right intertrochanteric hip fracture PMH: Cognitive disorder, Lewy body dementia, IFG, HTN, HLD. Recommendations/Plan: 1) Advance diet as medically able Malnutrition Summary- continue to assess NUTRITION ASSESSMENT Attempted to visit however patient out of room for surgery on right hip today. Will try to follow upand obtain NFPE and diet/weight hx as able. Anthropometrics: Height: 162.6 cm (5' 4") Admission Weight: Weight: 60 kg (132 lb 3.2 oz) as of 06/16/2021 per bed scale Most Recent Weight: Weight: 60 kg (132 lb 3.2 oz) (06/16/211938) per bed scale BMI: Body mass index is 22.69 kg/m. IBW: 55 kg %IBW: 109% (based on admit weight) Usual Body Weight: Unknown Unintentional Weight Loss: No weight hx on file. Estimated Needs: 1500 kcal/day (25 kcal/kg Using: Admission Weight) 70-75 gm protein (1.2-1.3 gm/kg Using:Admission Weight) Fluids per MD Intake Records: Intake Prior to Admit: Diet quality unknown at this time as patient was out of room for procedure. Current Intake: Pt is NPO Current Diet: Nutrition (From admission, onward) Start Ordered 06/17/21 0005 Diet - NPO (PANEL - NPO AFTER MIDNIGHT/CONTINUE DIET ORDERED) Now Question: Standard Diets Answer: NPO 06/16/21190206/16/211904 CONTINUE DIET ORDERED (PANEL - NPO AFTER MIDNIGHT/CONTINUE DIET ORDERED) ONCE Comments: Patient to remain on previously ordered diet. Call if one is not available. 06/16/211902 Physical Assessment: Edema: None documented GI Assessment: Abdominal exam: WDL, per impersonator character at 2232 today. Stool Frequency: Pt has not had a documented BM since admission Wounds/Pressure Points: (per impersonator character at 2232 today) Coccyx Blanchable Redness Heel Blanchable Redness Nutrition Focused Physical Exam: Deferred at this time due to inability to visit with patient today Nutritionally-Relevant Medications, Vitamins and Minerals: Statin Nutritionally-Relevant Biochemical Data: (06/17/2021) No pertinent nutrition related lab values at this time Allergies/Food Intolerance: Dora is allergic to colestipol hcl, fosamax [alendronic acid], morphine, and niacin [isopropyl nicotinate]. Culturally Muslim Needs: NA INTERVENTIONS EMR reviewed MONITORING/EVALUATION Monitor diet advancement Monitor NPO duration Monitor I&O, weight trends, nutrition-related labs and medications, clinical status, and planof care r/t need for nutrition intervention and provide as warranted Nutrition Therapy will reassess every 1-4 days Karon Leavitt RDN, LRD Pager: [phone] ATCmarco antonio [place] - Essie Escobar LSW - 06/17/2021 10:26 AM CDT CASE MANAGEMENT / SOCIAL SERVICE TRANSITION PLAN - INITIAL ASSESSMENT TRANSITION PLAN: Awaiting Medical Doctor Recommendations for Transition Will Continue to Follow for Support and Progression Towards Final Transition Plan BARRIERS TO TRANSITION: Awaiting Collateral Information Awaiting Therapy Recommendations Discharge Needs to be Determined Medical barriers:.bedrest, pain mgmt, ortho following COMMENTS / PATIENT AND FAMILY RESPONSE TO PLAN: Reviewed patient's medical record, Spoke with patient's daughter Eric over phone and reviewed the role of a social work msw in case management. Offered support and active listening. Patient lives with her daughter. Patient's daughter assists with medications and showers. Patient uses a cane around home and a 4WW. Patient's daughter denies having community services coming to the home. CM to assist with transportation at discharge as needed. Patient's daughter agreeable to placement at discharge. Patient has been profiled [address] [facility] per daughter's preference. Will continue to follow, await treatment team recommendations, and provide discharge options as appropriate. ADMISSION DX: R) hip injury PATIENT STATUS: OP in a Bed RELEASE OF INFORMATION: Yes -- verbal for: discharge planning SOURCES OF INFORMATION (See demographics for contact information): Family: Daughter Medical Record Patient CURRENT LIVING SITUATION / LEVEL OF ASSISTANCE: Lives with daughter Requires Some Assistance Cane Four Wheeled Walker COMMUNITY SERVICES: None HEALTHCARE DIRECTIVE: No POWER OF COMMUNICATIONS TOWER CLIMBER: None FINANCIAL CONCERNS: No Concerns PRIMARY CARE PHYSICIAN: Yes - New PCP is LEANDRA Morfin : Yes:[facility] notified via [facility] Notification ID: [id number] IS PATIENT'S ADMISSION ASSOCIATED WITH TIA, ISCHEMIC, OR HEMORRHAGIC STROKE?: No LANGUAGE / COMMUNICATION BARRIERS: No PATIENT / SUBSTITUTE DECISION MAKER GOAL UPON TRANSITION: First Choice: Home: Family/Friend Support Shelter Facility Swing Bed ANTICIPATED NEEDS, TRANSITION CHOICES OFFERED: Shelter Facility Swing Bed Transitional Care RESOURCE(S) PROVIDED: nothing needed at this time DOES PATIENT HAVE CLOTHING TO WEAR AT DISCHARGE? Yes ANTICIPATED MODE OF TRANSPORT UPON DISCHARGE: Other: TBD VERIFIED CORRECT PHARMACY IS ENTERED FOR DISCHARGE: No - TBD based on discharge plans. CURRENT READMISSION RISK SCORE Predictive Risk Score Risk of Unplanned Readmission: 7.8 Please refer to readmission risk assessment flowsheet for further details. SIGNED: CITLALLI Del Cid Case Management - 8[facility] | Pager: [phone] are Planning - Vera Duke RN - 06/17/2021 4:27 AM CDT Problem: RISK FOR FALLS Goal: FALL PREVENTION BEHAVIOR Description: DEFINITION: Personal or family dog daycare provider actions to minimize risk factors that might precipitate falls in the personal environment. 1=Never demonstrated, 2=Rarely demonstrated, 3=Sometimes demonstrated, 4=Often demonstrated, 5=Consistently demonstrated. Outcome: NOC Rating 1 Flowsheets (Taken 06/17/2021 1545) Initial Score: 1 Target Score: 5 Plan of care reviewed with: Patient Patient specific goal for the day: Patient will reteach nursing staff how to use call light. Patient specific goal for the stay: Patient will utilize call light appropriately when needing assistance. Pt will be fall free during hospital stay. Achieve goal for stay: By discharge Patient Progress: Pt has not used call light appropriately throughout shift. She has been confused and only AxO to person. Pt has a history of Lewy body dementia. Taught pt how to use call light and reinforced education multiple times. Pt is on a bed alarm and has tried to get out of bed multiple times throughout shift without assistance from nursing staff. linical Team - Kasi Briones RN - 06/16/2021 7:46 PM CDT Provider paged re elevated BPs: "Pt has elevated BP, first 180/83 (108), retake other arm was 66/80 (103). Would you like any PRN given? She does have scheduled BP meds coming." linical Team - Loyd Wise RN - 06/16/2021 7:43 PM CDT Upon Admission to 8[facility], skin assessment completed with KASI ARCHIBALD Upon skin assessment including pressure points findings include: old scars to bilateral legs, bruising to bilateral legs and arms, skin tags to back, possible wound to left toe right foot nail bed gone. Plan/Intervention q2 turns External cath Frequent rounding documented in this encounter Plan of Treatment Date Type Specialty Care Team Description 07/30/2021 Office Visit Orthopedics Nirav Gómez MD [address] [place] [address] DR Zahra [place], [place] [address] [phone] 07/30/2021 Office Visit Orthopedics Sadia Gómez PA-C [address] [place] [address] DR Zahra [place], [place] [address] [phone] documented as of this encounter Implants Implanted Type Area Technical Publications Manager Device Shelf Model / Identifier Expiration Serial / Date Lot Screw Iker Slftp 4.5x42mm N 214.842 Ea1 - [id number] Ortho Right: J&J DEPUY 214.842 / Implanted: Qty: 1 on 06/17/2021 by Nirav Gómez MD at [facility] Other HIP SYNTHES / Plate Dhs Std 130d 2hl 46mm N 281.021 Ea1 - [id number] Ortho Right : J&J DEPUY 281.021 / Implanted: Qty: 1 on 06/17/2021 by Nirav Gómez MD at [facility] Other HIP SYNTHES / Screw Iker Slftp 4.5x44mm N 214.844 Ea1 - [id number] Ortho Right: J&J DEPUY 214.844 / Implanted: Qty: 1 on 06/17/2021 by Nirav Gómez MD at [facility] Other HIP SYNTHES / documented as of this encounter Procedures Procedure Name Priority Date/Time Associated Comments Diagnosis SARS-COV-2, INFLUENZA STAT 06/21/2021 2:10 Re sults for this A+B, AND/OR RSV PM CDT procedure ar e in NUCLEIC ACID TESTING the res ults PANEL section. COLLECT AND HOLD GREEN Routine 06/20/2021 6:40 R esults for this TOP TUBE AM CDT procedure are i n the results section. HEMOGLOBIN Routine 06/20/2021 5:45 Results for this AM CDT procedure are i n the results section. COLLECT AND HOLD GREEN Routine 06/19/2021 5:53 R esults for this TOP TUBE AM CDT procedure are i n the results section. HEMOGLOBIN Routine 06/19/2021 5:53 Results for this AM CDT procedure are i n the results section. HEMOGLOBIN Routine 06/18/2021 7:30 Results for this AM CDT procedure are i n the results section. XRAY C-ARM Routine 06/17/2021 2:53 Results for this PM CDT procedure are i n the results section. NAILING HIP 06/17/2021 12:50 Closed right hip PM CDT fracture (HCC) TYPE AND SCREEN STAT 06/17/2021 12:22 Results for this PM CDT procedure are i n the results section. XRAY KNEE 3 VIEWS RT SHUBHAM 06/16/2021 8:48 Res ults for this PM CDT procedure are i n the results section. LAB ONLY-COMPLETE Routine 06/16/2021 8:21 Result s for this BLOOD COUNT WITH PM CDT procedure a re in DIFFERENTIAL the results section. LAB ONLY-ABORH Routine 06/16/2021 8:21 Results f or this PM CDT procedure are i n the results section. PROTIME/INR Routine 06/16/2021 8:21 Results for this PM CDT procedure are i n the results section. COMPREHENSIVE Routine 06/16/2021 8:21 Results fo r this METABOLIC PANEL PM CDT procedure ar e in the results section. LAB ONLY-COMPLETE Routine 06/16/2021 8:21 Result s for this BLOOD COUNT WITH PM CDT procedure a re in DIFFERENTIAL the results section. documented in this encounter Results SARS-COV-2, INFLUENZA A+B, AND/OR RSV NUCLEIC ACID TESTING PANEL (06/21/2021 2:10 PM CDT) Pathologist Sig nature SARS-CoV-2 Not Detected Not Detected [facility] Specimen Respiratory - Nasopharyngeal swab (speci men) Narrative Performed At Please read entire report. Results for Influenza A and B or [facility] RSV may also be available depending on which viruses y our provider selected for testing. Your Covid-19 test is negative: 1)Avoiding close contact is s till recommended. 2)Cover your coughs and snee zes. 3)Wash your hands often with soap and wate r for at least 20 seconds or use an alcohol-based sanding line operator containing over 60% alcohol. Avoid touch ing your face. 4)Avoid sharing personal household items, including dishes, cups, utensils, towels, clothing, or bedding. These items should be cleaned thoroughly with soap and water after use. Clean all "high touch" surfaces i n your home daily. 5) Monitor your symptoms. Contact your provider if you are feeling worse. If you have shortness of breath or difficulty breathing, call 911. This assay is for in vitro diagnostic use under FDA Emergency Use Authorization only. Optimal performance of this test requires appropriate specimen collection, storage, and transport to the [place] [facility] site. Detection of SARS-CoV-2 RNA may be affected by sample collection methods, patient factors (eg, presence of symptoms), and/or stage of infection. False-negative results may arise from degradation of v iral RNA during shipping/storage. Results should be interpreted by a trained professiona l in conjunction with the patient s history and clinical signs and symptoms, and epidemiological risk factors. Negative (Not Detected) results do not preclude infect ion with the SARS-CoV-2 virus and should not be the sole b asis of patient treatment/management or public health decis ion. Follow up testing should be performed according to the current CDC recommendations. This test was performed by polymerase chain reaction ( PCR) on the GeneXpert instrument. Performing Organization Address [facility] Phon e Number [facility] [address] [place] [address] [place] [address] COLLECT AND HOLD GREEN TOP TUBE (06/20/2021 6:40 AM CDT) Collect and Hold Comment: RECEIVED [facility] Specimen Blood - Blood specimen (specimen) Performing Organization Address [facility] Phon e Number [facility] [address] [place] [address] HEMOGLOBIN (06/20/2021 5:45 AM CDT) [facility] Hemoglobin 11.8 11.5 - 15.8 g/dL [facility] Specimen Blood - Blood specimen (specimen) Performing Organization Address [facility] Phon e Number [facility] [address] [place] [address] [phone] COLLECT AND HOLD GREEN TOP TUBE (06/19/2021 5:53 AM CDT) Collect and Hold Comment: RECEIVED [facility] Specimen Blood - Blood specimen (specimen) Performing Organization Address [facility]/ZIP Code Phon e Number [facility] [address] [place] [address] [phone] HEMOGLOBIN (06/19/2021 5:53 AM CDT) Pathologist Sig nature Hemoglobin 12.3 11.5 - 15.8 g/dL [facility] Specimen Blood - Blood specimen (specimen) Performing Organization Address City/[facility]/ZIP Code Phon e Number [facility] [id number] [place] [address] [address] HEMOGLOBIN (06/18/2021 7:30 AM CDT) Pathologist Sig nature Hemoglobin 12.9 11.5 - 15.8 g/dL [address] Specimen Blood - Blood specimen (specimen) Performing Organization Address [facility] Phon e Number [address], [place] [address] XRAY C-ARM LESS THAN ONE HR (06/17/2021 2:53 PM CDT) Specimen Narrative Performed At This result has an attachment that is no t available. Fluoroscopic image(s) submitted. Imaging assistance provided by [facility] RADIOLOGY Radiology. Performing Organization Address [facility] Code Phon e Number [facility] [address] [place] [address] RADIOLOGY TYPE AND SCREEN (06/17/2021 12:22 PM CDT) Pathologist Sig nature ABO Type A [address] BLOOD BANK Rh Type Positive [address] BLOOD BANK Antibody Screen Negative [address] Comment: BLOOD BANK Allogenic Red Cells Available 06/17/21 8A Expiration Date 06/20/2021 23:[address] BLOOD BANK Specimen Blood - Blood specimen (specimen) Performing Organization Address City/[facility]/ZIP Code Phon e Number [address] BLOOD BANK [address] [facility] [place] [address] XRAY KNEE 3 VIEWS RT (06/16/2021 8:48 PM CDT) Specimen Narrative Performed At This result has an attachment that is no t available. [id number] Patient Name: DORA STERN Date of : 1935 Procedure: XRAY KNEE 3 VIEWS RT Date of Service: 06/16/2021 EXAM: XRAY KNEE 3 VIEWS RT INDICATION:Right knee pain GLF COMPARISON: None. 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 No periprostatic lucency to indicate loosening or fracture. Enthesopathy at the insertion of the quadriceps tendon. Severe vascular calcification. Minimal ventral soft tissue edema. Finalized by: Vlad Montes MD on 06/16/2021 9:06 PM CDT Patient/Procedure Information: [facility] MRN/JORGE: [id number] Order Number: [id number] Accession Number: [id number] Ordering Provider: BLAKE AMBROCIO Authorizing Provider: TWAN LAROSE Procedure Note Interface, Radiantres - 06/16/2021 9:08 PM CDT Patient Name: DORA STERN Date of : 1935 Procedure: XRAY KNEE 3 VIEWS RT Date of Service: 06/16/2021 EXAM: XRAY KNEE 3 VIEWS RT INDICATION:Right knee pain GLF COMPARISON: None. 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 No periprostatic lucency to indicate loosening or fracture. Enthesopathy at the insertion of the quadriceps tendon. Severe vascula r calcification. Minimal ventral soft tissue edema. Finalized by: Vlad Montes MD on 06/16 9:06 PM CDT Patient/Procedure Information: [facility] MRN/JORGE: [id number] Order Number: [id number] Accession Number: [id number] Ordering Provider: BLAKE AMBROCIO Authorizing Provider: TWAN LAROSE Performing Organization Address City/[facility]/ZIP Code Phon e Number [id number] LAB ONLY-ABORH (06/16/2021 8:21 PM CDT) Pathologist Sig nature ABO Type A [address] BLOOD BA NK Rh Type Positive [address] BLOOD BA NK Specimen Blood - Blood specimen (specimen) Performing Organization Address City/[facility]/ZIP Code Phon e Number [address] BLOOD BANK [address] [place] [address] LAB ONLY-COMPLETE BLOOD COUNT WITH DIFFERENTIAL (06/16/2021 8:21 PM CDT) [facility] WBC 8.4 4.0 - 11.0 K/uL [address] RBC 4.96 3.80 - 5.30 M/uL [address] Hemoglobin 14.3 11.5 - 15.8 g/dL [address] Hematocrit 43.2 35.0 - 45.0 % [address] MCV 87.1 80.0 - 98.[address] MCH 28.8 25.5 - 34.[address] MCHC 33.1 31.5 - 36.5 g/dL [address] RDW-CV 14.8 11.5 - 15.5 % [address] RDW-SD 46.9 35.5 - 50.[address] Platelet Count 354 140 - 400 K/uL [address] MPV 9.7 8.5 - 12.[address] Seg Neut Absolute 6.4 1.8 - 8.0 K/uL [address] Lymphocytes Absolute 0.8 0.8 - 4.1 K/uL [place] [address] [facility] Monocytes Absolute 0.7 0.0 - 1.0 K/uL [address] Eosinophils Absolute 0.4 0.0 - 0.7 K/uL [place] [address] [facility] Basophil Absolute 0.2 0.0 - 0.2 K/uL [address] Immature Granulocyte 0.04 0.00 - 0.06 K/uL [place] [address] [facility] AZUCENA Absolute Neutrophils Abs. (Segs 6,400 /uL [place] [address] [facility] and Bands) Neutrophils Percent 76.2 % [address] Lymphocytes Percent 8.9 % [address] Monocytes Percent 8.3 % [address] Immature Granulocyte 0.5 % [address] Percent Eosinophils Percent 4.3 % [place] [address] [facility] Basophil Percent 1.8 % [address] Nucleated RBC 0 /[address] Specimen Blood - Blood specimen (specimen) Performing Organization Address City/State/[facility] Phon e Number [place] [address] [facility] [address] [address] PROTIME/INR (06/16/2021 8:21 PM CDT) Pathologist Sig nature Protime 13.6 12.0 - 14.[address] INR 1.1 0.9 - 1.[address] Specimen Blood - Blood specimen (specimen) Narrative Performed At INR Standard Intensity = (2.0 - 3.0) [address] INR Higher Intensity = (2.5 - 3.5) Performing Organization Address [facility] Phon e Number [place] [address] [facility] [address], [place] [address] COMPREHENSIVE METABOLIC PANEL (06/16/2021 8:21 PM CDT) Pathologist Sig [facility] Glucose 94 70 - 100 mg/dL [address] BUN 13 6 - 22 mg/dL [address] Creatinine 0.69 0.60 - 1.[address] mg/dL BUN/Creatinine Ratio 18.8 10.0 - 25.[address] Sodium 140 135 - 145 meq/L [address] Potassium 3.6 3.5 - 5.3 meq/L [address] Chloride 104 99 - 110 meq/L [address] CO2 24 20 - 29 meq/L [address] Anion Gap with K 16 6 - 20 meq/L [address] Calcium 9.2 8.5 - 10.5 mg/dL [address] Protein Total 6.3 6.0 - 8.2 g/dL [address] Albumin 3.6 3.5 - 5.0 g/dL [address] Alkaline Phosphatase 60 30 - 150 U/L [address] AST - SGOT 27 0 - 35 U/L [address] ALT - SGPT 21 0 - 55 U/L [address] Bilirubin Total 0.9 0.2 - 1.2 mg/dL [address] Corrected Calcium 9.5 8.5 - 10.5 mg/dL [address] Age 85 Years [place] [address] [facility] eGFR Non- 81 >=60 [place] [address] [facility] [place] mL/min/1.73m2 eGFR >90 >=[address] mL/min/1.73m2 Specimen Blood - Blood specimen (specimen) Performing Organization Address City/State/ZIP Code Phon e Number [address] [place] [address] documented in this encounter Visit Diagnoses Diagnosis Closed fracture of right hip, initial en counter (HCC) - Primary Coronary arteriosclerosis Coronary atherosclerosis of unspecified type of vessel, [place] or graft Hyperlipidemia, unspecified hyperlipidem ia type Essential hypertension Unspecified essential hypertension Postoperative state Other postprocedural status Hip fracture (HCC) Closed fracture of unspecified part of n patrick of femur documented in this encounter Discharge Diagnoses Not on filedocumented in this encounter Administered Medications Medication Order MAR Action Action Date Dose Rate Site acetaminophen (TYLENOL) tablet Given 06/21/2021 6:34 PM CDT 650 mg 650 mg 650 mg, Oral, Every four hours prn, Starting on Tue06/17/21 at 1512, Until Discontinued, mild pain, fever, pain scale 3 or less, PACU - Continue Post-Op, Adult patients: Total dose of acetaminophen from all acetaminophen containing products should not exceed 4 grams (4000 mg) per day. Pediatric Patients 0 - 3 months: Maximum of 60 mg/kg/24 hours of acetaminophen. Pediatric Patients older than 3 months: Maximum of 75 mg/kg/24 hours of acetaminophen (Never exceeding 4 grams/day). Given 06/21/2021 1:45 PM CDT 650 mg Given 06/21/2021 8:17 AM CDT 650 mg amLODIPine (NORVASC) tablet 5 mg Given 06/22/2021 8:26 AM CDT 5 mg 5 mg, Oral, DAILY, First dose on Tue06/17/21 at 0900, Until Discontinued Given 06/21/2021 8:18 AM CDT 5 mg Given 06/20/2021 10:11 AM CDT 5 mg atenolol (TENORMIN) tablet 100 mg Given 06/21/2021 8:01 PM CDT 100 mg 100 mg, Oral, Bedtime, First dose on Tue06/16/21 at 2100, Until Discontinued Given 06/20/2021 9:10 PM CDT 100 mg Given 06/19/2021 10:14 PM CDT 100 mg bisacodyl (DULCOLAX) enteric coated tablet 5 Given 8:26 AM CDT 5 mg mg 5 mg, Oral, Two times a day, First dose on Tue06/21/21 at 2100, Until Discontinued, Tablet should be swallowed whole and not be divided, crushed or chewed. Given 06/21/2021 8:03 PM CDT 5 mg enoxaparin (LOVENOX) subcutaneous injection Given 06/22/2021 8:26 AM CDT 40 mg solution 40 mg 40 mg, Subcutaneous, Daily, 28 doses, First dose on Jolene 06/18/21 at 0800, Last dose on Tue07/15/21 at 0800, Post - Op, Begin 0800 on first postop day. To avoid the loss of drug when using the 30 mg and 40 mg prefilled syringes, do not expel the air bubble from the syringe before the injection. For ADULT patients: Administration should be alternated between the left and right anterolateral and left and right posterolateral abdominal wall. The whole length of the needle should be introduced into a skin fold held between the thumb and forefinger; the skin fold should be held throughout the injection. To minimize bruising, do not rub the injection site after completion of the injection. For PEDIATRIC patients: Administration should be alternated between appropriate sites for patient age/weight (infants/small children = upper thigh; older children/adolescents = left and right anterolateral and left and right posterolateral abdominal wall). During administration to infants/smaller children sometimes the whole length of the needle is not "introduced" during the injection. Administer injection into a skin fold held between the thumb and forefinger; the skin fold should be held throughout the injection. To minimize bruising, do not rub the injection site after completion of the injection. Given 06/21/2021 8:16 AM CDT 40 mg Given 06/20/2021 10:11 AM CDT 40 mg fentaNYL 100 mcg/2 mL preservative free Given 06/19/2021 6:17 A M CDT 25 mcg injection solution 25 mcg 25 mcg, IV, Every two hours prn, Starting on Tue06/16/21 at 1833, Until Discontinued, severe pain, For pain Scale 7 or greater or pain not relieved by medications for Pain Scale 4-6, 0.5 mL, Pain stratification is defined as follows for either analog scale (0-10) or critical care pain observation tool (CPOT, 0-8). a. No pain (0) b. Mild pain level (1-3) c. Moderate pain level (4-6) d. Severe pain level (greater than or equal to 7) nitroglycerin CR (NITRO-BID) capsule 6.5 mg Given 06/22/2021 8:26 AM CDT 6.5 mg 6.5 mg, Oral, Two times a day, First dose on Tue06/16/21 at 2100, Until Discontinued Given 06/21/2021 8:01 PM CDT 6.5 mg Given 06/21/2021 8:16 AM CDT 6.5 mg polyethylene glycol (MIRALAX) packet 1 Given 06/22/2021 8:26 AM CDT 1 packet packet 1 packet, Oral, Daily, First dose on Tue06/18/21 at 0900, Until Discontinued, Post - Op, Hold if 2 loose stools occur in the last 24 hours. Do NOT give if patient on thickened liquids. Contact provider for alternative if needed. Given 06/21/2021 8:18 AM CDT 1 packet Given 06/20/2021 10:11 AM CDT 1 packet rosuvastatin (CRESTOR) tablet 40 mg Given 06/21/2021 8:01 PM CDT 40 mg 40 mg, Oral, Bedtime, First dose on Tue06/16/21 at 2100, Until Discontinued Given 06/20/2021 9:12 PM CDT 40 mg Given 06/19/2021 10:14 PM CDT 40 mg senna-docusate sodium Given 06/22/2021 8:26 AM CDT 1 tablet (SENOKOT-S;PERICOLACE) tablet 1 tablet 1 tablet, Oral, Two times a day, First dose on Tue06/17/21 at 2100, Until Discontinued, Post - Op, Hold if 2 loose stools occur in the last 24 hours. Given 06/21/2021 8:02 PM CDT 1 tablet Given 06/21/2021 8:16 AM CDT 1 tablet senna-docusate sodium Given 06/21/2021 8:01 PM CDT 1 tablet (SENOKOT-S;PERICOLACE) tablet 1 tablet 1 tablet, Oral, Two times a day prn, Starting on Tue06/17/21 at 1609, Until Discontinued, constipation, Post - Op, Use first for constipation unless patient cannot take oral medications Medication Order MAR Action Action Date Dose Rate Site acetaminophen (TYLENOL) tablet Given 06/17/2021 6:55 AM CDT 650 mg 650 mg 650 mg, Oral, Every four hours prn, Starting on Tue06/16/21 at 1833, Until Tue06/17/21 at 1516, mild pain, fever, pain scale 3 or less, Pain stratification is defined as follows for either analog scale (0-10) or critical care pain observation tool (CPOT, 0-8). a. No pain (0) b. Mild pain level (1-3) c. Moderate pain level (4-6) d. Severe pain level (greater than or equal to 7) Adult patients: Total dose of acetaminophen from all acetaminophen containing products should not exceed 4 grams (4,000 mg) per day. Pediatric Patients 0 - 3 months: Maximum of 60 mg/kg/24 hours of acetaminophen. Pediatric Patients older than 3 months: Maximum of 75 mg/kg/24 hours of acetaminophen (Never exceeding 4 grams/day). Given 06/17/2021 1:08 AM CDT 650 mg ceFAZolin (ANCEF) 2000 mg/20 mL sterile Given 06/18/2021 6:01 A M CDT 2,000 mg water IV syringe 2,000 mg, IV, Every eight hours, 2 doses, First dose on Tue06/17/21 at 2200, Last dose on Tue06/18/21 at 0600, 20 mL, PACU - Continue Post-Op, Administer as IV push over 4 minutes. Given 06/17/2021 10:09 PM CDT 2,000 mg sodium chloride 0.9% flush (adult) 10 mL Given 06/21/2021 8:18 AM CDT 10 mL 10 mL, IV, Two times a day and prn, First dose on Tue06/16/21 at 2100, Until Discontinued, 10 mL, Flush PIV line as scheduled and as often as necessary before and after meds. Use a push / pause technique when flushing to create turbulence. Given 06/20/2021 9:15 PM CDT 10 mL Given 06/20/2021 10:11 AM CDT 10 mL documented in this encounter Active and Recently Administered Medications Times are shown in CDT. Medication Order 06/20/2021 06/21/2021 06/22/2021 amLODIPine (NORVASC) tablet 5 mg 1011 (Given - Provider: Courtney Lou RN) 0818 (Given - Provider: Amina Fernández LPN) 08 (Given - Provider: Reema Gonsalez RN) 5 mg, Oral, DAILY, First dose on Tue06/17/21 at 0900, Until Disco ntinued atenolol (TENORMIN) tablet 100 mg 2109 (Given - Provid er: Lyndsey Gore RN) 2000 (Given - Provider: Essence Belle RN - Comment: 129/ 63 HR 60) 2099 (Due) 100 mg, Oral, Bedtime, First dose on Tue06/16/21 at 2100, Until D iscontinued bisacodyl (DULCOLAX) enteric coated tablet 5 mg 2002 (Given - Provider: Essence Belle RN) 825 (Given - Provider: Reema Gonsalez RN)2099 (Due) 5 mg, Oral, Two times a day, First dose on Tue06/21/21 at 2100, Until Discontinued, Tablet should be swallowed whole and not be divided, crushed or chewed. enoxaparin (LOVENOX) subcutaneous injection solution 4 0 mg 1011 (Given - Provider: Brittany Lou RN) 0816 (Given - Provider: Amina Fernández LPN) 08 (Given - Provider: Reema Gonsalez RN) 40 mg, Subcutaneous, Daily, 28 doses, Fi rst dose on Tue06/18/21 at 0800, Last dose on Tue07/15/21 at 0800, Post - Op, Begin 0800 on first postop day. To avoid the loss of drug when using the 30 mg and 40 mg prefilled syringes, do not expel the air bubble from the syringe before the injection. For ADULT patients: Administration should be alternated between the left and right anterolateral and left and right posterolateral abdominal wall. Th whole length of the needle should be introduced into a skin fold held between the thumb and forefinger; the skin fold should be held throughout the injection. T o minimize bruising, do not rub the inje ction site after completion of the injection. For PEDIATRIC patients: Administration should be alternated between appropriate sites for patient age/weight (inf ants/small children = upper thigh; older children/adolescents = left and right anterolateral and left and right posterolateral abdominal wall). During administration to infants/smaller children sometime s the whole length of the needle is not "introduced" during the injection. Administer injection into a skin fold held between the thumb and forefinger; the skin fold should be held throughout the inject ion. To minimize bruising, do not rub th e injection site after completion of the injection. nitroglycerin CR (NITRO-BID) capsule 6.5 mg 1010 (Give n - Provider: Brittany Lou RN)2110 (Given - Provider: Lyndsey Gore RN) 815 (Given - Provider: Amina Fernández LPN)2000 (Given - Provider: Essence Belle RN) 825 (Given - Provider: Reema Gonsalez RN)2099 (Due) 6.5 mg, Oral, Two times a day, First dos e on Tue06/16/21 at 2100, Until Discontinued polyethylene glycol (MIRALAX) packet 1 packet 1010 (Gi humphrey - Provider: Brittany Lou RN) 817 (Given - Provider: Amina Fernández LPN) 825 (Give n - Provider: Reema Gonsalez RN) 1 packet, Oral, Daily, First dose on Tue06/18/21 at 0900, Until Discontinued, Post - Op, Hold if 2 loose stools occur in the last 24 hours. Do NOT give if patient on thickened liquids. Contact provider for alternative if needed. rosuvastatin (CRESTOR) tablet 40 mg 2111 (Given - Prov ider: Lyndsey Gore RN) 2000 (Given - Provider: Essence Belle RN) 2099 (Due) 40 mg, Oral, Bedtime, First dose on Tue06/16/21 at 2100, Until Di scontinued senna-docusate sodium (SENOKOT-S;PERICOLACE) tablet 1 tablet 1011 (Given - Provider: Brittany Lou RN)2110 (Given - Provider: Lyndsey Gore RN) 0816 (Given - Provider: Amina Fernández LPN)2001 (Given - Provider: Essence Belle RN) 08 (Given - Provider: Reema Gonsalez RN)2099 (Due) 1 tablet, Oral, Two times a day, First d ose on Tue06/17/21 at 2100, Until Discontinued, Post - Op, Hold if 2 loose stools occur in the last 24 hours. sodium chloride 0.9% flush (adult) 10 mL (CANCELED) 10 11 (Given - Provider: Brittany Lou RN)2115 (Given - Provider: Lyndsey Gore RN) 0818 (Given - Provider: Amina Fernández LPN) 10 mL, IV, Two times a day and prn, Firs t dose on Tue06/16/21 at 2100, Until Discontinued, 10 mL, Flush PIV line as scheduled and as often as necessary before and after meds. Use a push / pause technique when flushing to create turbulence. Medication Order 06/20/2021 06/21/2021 06/22/2021 acetaminophen (TYLENOL) tablet 650 mg 2109 (Given - Pr ovider: Lyndsey Gore RN) 08 (Given - Provider: Geronimo Pulliam PN)134 (Given - Provider: Amina Fernández LPN)183 (Given - Provider: Richa Armando RN) 650 mg, Oral, Every four hours prn, Star ting on Tue06/17/21 at 1512, Until Discontinued, mild pain, fever, pain scale 3 or less, PACU - Continue Post-Op, Adult patients: Total dose of acetaminophen from all acetaminophen containing products sh ould not exceed 4 grams (4000 mg) per day. Pediatric Patients 0 - 3 months: Maximum of 60 mg/kg/24 hours of acetaminophen. Pediatric Patients older than 3 months : Maximum of 75 mg/kg/24 hours of acetaminophen (Neve r exceeding 4 grams/day). bisacodyl (DULCOLAX) suppository 10 mg 10 mg, Rectal, One time a day prn, Start ing on Tue06/17/21 at 1609, Until Discontinued, constipation, Post - Op, Use second for constipation. If patient cannot take oral medications, use first for constipation. fentaNYL 100 mcg/2 mL preservative free injection solution 25 mc g 25 mcg, IV, Every two hours prn, Startin g on Tue06/16/21 at 1833, Until Discontinued, severe pain, For pain Scale 7 or greater or pain not relieved by medications for Pain Scale 4-6, 0.5 mL, Pain stratif ication is defined as follows for either analog scale (0-10) or critical care pain observation tool (CPOT, 0-8). a. No pain (0) b. Mild pain level (1-3) c. Moderate pain level (4-6) d. Severe pain level (greater than or equal to 7) nalOXone (NARCAN) injection solution (vial) 0.2 mg 0.2 mg, Injection, Every two minutes prn , Starting on Tue06/17/21 at 1512, Until Discontinued, other (Specify), opioid induced respiratory depression - PARTIAL reversal, 0.5 mL, PACU - Continue Post-Op, PARTIAL REVERSAL/RESPIRATORY DEPRESSION If respiratory rate less than 8/minute - call rapid response and administer (until respiratory rate increases to 10/minute). Give IV (preferred), IM or SUBQ nalOXone (NARCAN) injection solution (vial) 0.4 mg 0.4 mg, Injection, Every two minutes prn , Starting on Tue06/17/21 at 1512, Until Discontinued, other (Specify), opioid induced respiratory arrest - FULL reversal, 1 mL, PACU - Continue Post-Op, FULL REVE RSAL/RESPIRATORY ARREST If patient is no t breathing - call CODE BLUE and administer. Give IV (preferred), IM or SUBQ ondansetron (ZOFRAN) injection solution 4 mg 4 mg, IV, Every four hours prn, Starting on Tue06/17/21 at 1512, Until Discontinued, nausea, vomiting, 2 mL, PACU - Continue Post-Op, Use FIRST for nausea/vomiting. If ineffective after 15 minutes use kee loperidol if ordered for nausea/vomiting . If preference is to further dilute for IV administration: First draw up patient-specific dose, then dilute to 10 mL with 0.9% sodium chloride. senna-docusate sodium (SENOKOT-S;PERICOLACE) tablet 1 tablet 1011 (Not Given - Provider: Brittany Lou RN - Reason: Not Given) 2000 (Given - Provider: Essence Belle RN) 1 tablet, Oral, Two times a day prn, Sta rting on Tue06/17/21 at 1609, Until Discontinued, constipation, Post - Op, Use first for constipation unless patient cannot take oral medications documented in this encounter
[2021-06-24] MEDS: QUEtiapine 25 MG Tab PO PRN (20:19)
[2021-06-24] MEDS: Rosuvastatin 20 MG Tab PO SCH (20:19)
[2021-06-25] MEDS: Calcium Carbonate 500 MG Tablet PO SCH ×2 (07:47→17:11)
[2021-06-25] MEDS: Potassium Chloride 10 MEQ Tab.ER PO SCH (07:59)
[2021-06-25] MEDS: PREVAGEN PO SCH (07:59)
[2021-06-25] MEDS: Lutein/Minerals/Vitamin C/Vitamin E Acetate Cap PO SCH (07:59)
[2021-06-25] MEDS: Multivitamins with Iron/Calcium/Folic Acid/Minerals Tab PO SCH (07:59)
[2021-06-25] MEDS: Enoxaparin 40 MG/0.4 ML Syringe SUBCUT SCH (07:59)
[2021-06-25] MEDS: NITROGLYCERIN 6.5 MG PO SCH ×2 (07:59→20:34)
[2021-06-25] MEDS: Cholecalciferol (Vitamin D3) 25 MCG Tab PO SCH (07:59)
[2021-06-25] MEDS: Hydrochlorothiazide 25 MG Tab PO SCH (07:59)
[2021-06-25] MEDS: amLODIPine 5 MG Tab PO SCH (08:00)
[2021-06-25] MEDS: QUEtiapine 25 MG Tab PO PRN (20:32)
[2021-06-25] MEDS: Rosuvastatin 20 MG Tab PO SCH (20:34)
[2021-06-26] MEDS: Acetaminophen 325 MG Tab PO PRN (01:25)
[2021-06-26] MEDS: Potassium Chloride 10 MEQ Tab.ER PO SCH (09:35)
[2021-06-26] MEDS: Enoxaparin 40 MG/0.4 ML Syringe SUBCUT SCH (09:35)
[2021-06-26] MEDS: Lutein/Minerals/Vitamin C/Vitamin E Acetate Cap PO SCH (09:36)
[2021-06-26] MEDS: Hydrochlorothiazide 25 MG Tab PO SCH (09:36)
[2021-06-26] MEDS: Calcium Carbonate 500 MG Tablet PO SCH ×2 (09:36→18:48)
[2021-06-26] MEDS: amLODIPine 5 MG Tab PO SCH (09:36)
[2021-06-26] MEDS: Cholecalciferol (Vitamin D3) 25 MCG Tab PO SCH (09:37)
[2021-06-26] MEDS: Multivitamins with Iron/Calcium/Folic Acid/Minerals Tab PO SCH (09:37)
[2021-06-26] MEDS: PREVAGEN PO SCH (09:38)
[2021-06-26] MEDS: NITROGLYCERIN 6.5 MG PO SCH ×2 (09:38→22:00)
[2021-06-26] MEDS: Rosuvastatin 20 MG Tab PO SCH (22:00)
[2021-06-27] MEDS: Acetaminophen 325 MG Tab PO PRN (03:37)
[2021-06-27] MEDS: QUEtiapine 25 MG Tab PO PRN ×2 (03:38→23:15)
[2021-06-27] MEDS: Cholecalciferol (Vitamin D3) 25 MCG Tab PO SCH (10:10)
[2021-06-27] MEDS: Calcium Carbonate 500 MG Tablet PO SCH ×2 (10:10→17:19)
[2021-06-27] MEDS: Multivitamins with Iron/Calcium/Folic Acid/Minerals Tab PO SCH (10:11)
[2021-06-27] MEDS: Potassium Chloride 10 MEQ Tab.ER PO SCH (10:11)
[2021-06-27] MEDS: Lutein/Minerals/Vitamin C/Vitamin E Acetate Cap PO SCH (10:11)
[2021-06-27] MEDS: NITROGLYCERIN 6.5 MG PO SCH ×2 (10:12→20:11)
[2021-06-27] MEDS: Enoxaparin 40 MG/0.4 ML Syringe SUBCUT SCH (10:14)
[2021-06-27] MEDS: PREVAGEN PO SCH (10:14)
[2021-06-27] MEDS: Hydrochlorothiazide 25 MG Tab PO SCH (10:17)
[2021-06-27] MEDS: amLODIPine 5 MG Tab PO SCH (10:17)
[2021-06-27] MEDS: Rosuvastatin 20 MG Tab PO SCH (20:13)
[2021-06-28] MEDS: Calcium Carbonate 500 MG Tablet PO SCH ×2 (09:20→17:19)
[2021-06-28] MEDS: Lutein/Minerals/Vitamin C/Vitamin E Acetate Cap PO SCH (09:20)
[2021-06-28] MEDS: Hydrochlorothiazide 25 MG Tab PO SCH (09:21)
[2021-06-28] MEDS: PREVAGEN PO SCH (09:21)
[2021-06-28] MEDS: Potassium Chloride 10 MEQ Tab.ER PO SCH (09:21)
[2021-06-28] MEDS: Cholecalciferol (Vitamin D3) 25 MCG Tab PO SCH (09:22)
[2021-06-28] MEDS: Enoxaparin 40 MG/0.4 ML Syringe SUBCUT SCH (09:23)
[2021-06-28] MEDS: NITROGLYCERIN 6.5 MG PO SCH ×2 (09:23→20:29)
[2021-06-28] MEDS: amLODIPine 5 MG Tab PO SCH (09:24)
[2021-06-28] MEDS: Multivitamins with Iron/Calcium/Folic Acid/Minerals Tab PO SCH (09:25)
[2021-06-28] MEDS: Rosuvastatin 20 MG Tab PO SCH (20:29)
[2021-06-28] MEDS: QUEtiapine 25 MG Tab PO PRN (20:30)
[2021-06-29] MEDS: Cholecalciferol (Vitamin D3) 25 MCG Tab PO SCH (08:22)
[2021-06-29] MEDS: Multivitamins with Iron/Calcium/Folic Acid/Minerals Tab PO SCH (08:23)
[2021-06-29] MEDS: PREVAGEN PO SCH (08:25)
[2021-06-29] MEDS: Potassium Chloride 10 MEQ Tab.ER PO SCH (08:25)
[2021-06-29] MEDS: Hydrochlorothiazide 25 MG Tab PO SCH (08:25)
[2021-06-29] MEDS: amLODIPine 5 MG Tab PO SCH (08:25)
[2021-06-29] MEDS: Calcium Carbonate 500 MG Tablet PO SCH ×2 (08:25→17:05)
[2021-06-29] MEDS: NITROGLYCERIN 6.5 MG PO SCH ×2 (08:25→20:43)
[2021-06-29] MEDS: Enoxaparin 40 MG/0.4 ML Syringe SUBCUT SCH (08:25)
[2021-06-29] MEDS: Lutein/Minerals/Vitamin C/Vitamin E Acetate Cap PO SCH (09:10)
[2021-06-29] MEDS: Rosuvastatin 20 MG Tab PO SCH (20:43)
[2021-06-29] MEDS: QUEtiapine 25 MG Tab PO PRN (20:52)
[2021-06-30] MEDS: Hydrochlorothiazide 25 MG Tab PO SCH (09:25)
[2021-06-30] MEDS: Calcium Carbonate 500 MG Tablet PO SCH ×2 (09:25→19:18)
[2021-06-30] MEDS: Enoxaparin 40 MG/0.4 ML Syringe SUBCUT SCH (09:26)
[2021-06-30] MEDS: PREVAGEN PO SCH (09:26)
[2021-06-30] MEDS: NITROGLYCERIN 6.5 MG PO SCH ×2 (09:26→20:41)
[2021-06-30] MEDS: Potassium Chloride 10 MEQ Tab.ER PO SCH (09:26)
[2021-06-30] MEDS: Lutein/Minerals/Vitamin C/Vitamin E Acetate Cap PO SCH (09:27)
[2021-06-30] MEDS: amLODIPine 5 MG Tab PO SCH (09:27)
[2021-06-30] MEDS: Multivitamins with Iron/Calcium/Folic Acid/Minerals Tab PO SCH (09:27)
[2021-06-30] MEDS: Cholecalciferol (Vitamin D3) 25 MCG Tab PO SCH (09:28)
[2021-06-30] MEDS: QUEtiapine 25 MG Tab PO PRN (20:41)
[2021-06-30] MEDS: Rosuvastatin 20 MG Tab PO SCH (20:41)
[2021-07-01] MEDS: Calcium Carbonate 500 MG Tablet PO SCH ×2 (08:31→18:46)
[2021-07-01] MEDS: Hydrochlorothiazide 25 MG Tab PO SCH (08:31)
[2021-07-01] MEDS: Potassium Chloride 10 MEQ Tab.ER PO SCH (08:31)
[2021-07-01] MEDS: NITROGLYCERIN 6.5 MG PO SCH ×2 (08:31→20:20)
[2021-07-01] MEDS: PREVAGEN PO SCH (08:32)
[2021-07-01] MEDS: amLODIPine 5 MG Tab PO SCH (08:32)
[2021-07-01] MEDS: Lutein/Minerals/Vitamin C/Vitamin E Acetate Cap PO SCH (08:32)
[2021-07-01] MEDS: Multivitamins with Iron/Calcium/Folic Acid/Minerals Tab PO SCH (08:32)
[2021-07-01] MEDS: Cholecalciferol (Vitamin D3) 25 MCG Tab PO SCH (08:32)
[2021-07-01] MEDS: Enoxaparin 40 MG/0.4 ML Syringe SUBCUT SCH (08:32)
[2021-07-01] MEDS: Rosuvastatin 20 MG Tab PO SCH (20:19)
[2021-07-01] MEDS: QUEtiapine 25 MG Tab PO PRN (20:24)
[2021-07-02] MEDS: PREVAGEN PO SCH (08:01)
[2021-07-02] MEDS: Calcium Carbonate 500 MG Tablet PO SCH ×2 (08:01→18:25)
[2021-07-02] MEDS: NITROGLYCERIN 6.5 MG PO SCH ×2 (08:01→20:24)
[2021-07-02] MEDS: Enoxaparin 40 MG/0.4 ML Syringe SUBCUT SCH (08:01)
[2021-07-02] MEDS: Cholecalciferol (Vitamin D3) 25 MCG Tab PO SCH (08:02)
[2021-07-02] MEDS: Hydrochlorothiazide 25 MG Tab PO SCH (08:02)
[2021-07-02] MEDS: Potassium Chloride 10 MEQ Tab.ER PO SCH (08:02)
[2021-07-02] MEDS: Lutein/Minerals/Vitamin C/Vitamin E Acetate Cap PO SCH (08:03)
[2021-07-02] MEDS: amLODIPine 5 MG Tab PO SCH (08:03)
[2021-07-02] MEDS: Multivitamins with Iron/Calcium/Folic Acid/Minerals Tab PO SCH (08:03)
--- NOTE | 2021-07-02 15:28 | PCM.DCSUM1 ---
Discharge Summary - Hospital Course HPI Initial Comments: Corine admitted to swing bed for rehab therapy s/p left hip fracture repair with dynamic hip screw(DHS) on 06/17, she had been admitted on 06/11 after sustaining fall at home, was admitted for pain control and to determine if was surgical fracture, she was transferred to [facility] on 06/16, they could not do surgery so she was transferred to [place], Dr Gómez did repair on 06/17. She has done well postoperatively, Hgb 11.8, which has been stable. Her blood pressure was elevated and they gradually added her home medications back in, restarted her HCTZ today. She has follow up with Dr Gómez in 6 weeks. He is to be on Lovenox daily until Jul 15. She has been using Tylenol as needed for pain in [place], was not discharged on any narcotics. She has history of Lewy Body Dementia, lives with her daughter. She eats mainly vegetarian, sometimes fish, eggs and rarely meat. She only has milk with cereal or oatmeal. She is a FULL CODE. Diagnosis: Stroke: No - Discharge Data Discharge Date: 07/03/21 (with daughter) Discharge Disposition: Home, Self-Care 01 Condition: Good - Referral to Home Health Date of Face to Face Encounter: 07/03/21 Reason for Homebound Status: limited mobility Primary Care Physician: Terri Queen DO Skilled Need: skilled nurse, PT/OT - Discharge Diagnosis/Problem(s) (1) Status post-operative repair of hip fracture SNOMED Code(s): 000765435, 607016129 ICD Code: Z98.890 - OTHER SPECIFIED POSTPROCEDURAL STATES; Z87.81 - PERSONAL HISTORY OF (HEALED) TRAUMATIC FRACTURE Status: Acute Current Visit: Yes Onset Date: ~06/17/21 (2) Acute blood loss anemia SNOMED Code(s): 880875344 ICD Code: D62 - ACUTE POSTHEMORRHAGIC ANEMIA Status: Acute Current Visit: Yes Problem Details: Hgb 11.8 (3) Fracture of greater trochanter of right femur SNOMED Code(s): 280111331, 01093829774119458 ICD Code: S72.111A - DISP FX OF GREATER TROCHANTER OF RIGHT FEMUR, INIT Status: Acute Current Visit: No Onset Date: ~06/11/21 Qualifiers: Encounter type: initial encounter Fracture type: closed Fracture alignment: nondisplaced Qualified Code(s): S72.114A - Nondisplaced fracture of greater trochanter of right femur, initial encounter for closed fracture (4) Hypertension SNOMED Code(s): 64731140 ICD Code: I10 - ESSENTIAL (PRIMARY) HYPERTENSION Status: Chronic Current Visit: Yes (5) Lewy body dementia SNOMED Code(s): 850830280 ICD Code: G31.83 - DEMENTIA WITH LEWY BODIES; F02.80 - DEMENTIA IN OTH DISEASES CLASSD ELSWHR W/O BEHAVRL DISTURB Status: Chronic Current Visit: Yes Qualifiers: Dementia behavioral disturbance: without behavioral disturbance Qualified Code(s): G31.83 - Dementia with Lewy bodies; F02.80 - Dementia in other diseases classified elsewhere without behavioral disturbance - Patient Summary/Data Consults: Consultations 06/22/21 14:05 OT Evaluation and Treatment [CONS] Routine Please Evaluate and Treat. OT Reason for Consult: ADL's Special Instructions: s/p left hip fracture repair(DHS) This query below is only for informational purposes and is not editable. PT Evaluation and Treatment [CONS] Routine Please Evaluate and Treat. PT Reason for Consult: Ambulation Special Instructions: s/p left hip fracture repair This query below is only for informational purposes and is not editable. Hospital Course: Corine has progressed well with therapy. She had one episode of vomiting and required Zofran but did not have any further events during swing bed stay. She had Seroquel 25 mg bid as needed agitation added since it was unfamiliar environment, she has used 1-2 doses the daily for past few days but will discontinue when she goes home. She has hematoma to right hip incision on admit, warm compresses ordered but still present on discharge. Follow up with Dr Zhao - Patient Instructions Diet: Usual Diet as Tolerated Activity: As Tolerated Driving: Do Not Drive Showering/Bathing: May Shower Other/Special Instructions: Follow up with Dr Zhao as previously scheduled. - Discharge Plan *PRESCRIPTION DRUG MONITORING PROGRAM REVIEWED*: Not Applicable *COPY OF PRESCRIPTION DRUG MONITORING REPORT IN PATIENT BRIGID: Not Applicable Prescriptions/Med Rec: Enoxaparin Sodium [Lovenox] 40 mg SUBCUT DAILY #12 syringe polyethylene glycoL 3350 [MiraLAX] 17 gm PO DAILY PRN #30 packet PRN Reason: Constipation Home Medications: Home Meds Lutein/Min/Vit C/Vit E Acetate [Ocuvite Lutein] 1 cap PO DAILY 06/13/21 [History] Nitroglycerin 6.5 mg PO BID 06/13/21 [History] Potassium Chloride 10 meq PO DAILY 06/13/21 [History] Prevagen 1 cap PO DAILY 06/13/21 [History] Rosuvastatin Calcium 40 mg PO BEDTIME 06/13/21 [History] amLODIPine Besylate [Amlodipine Besylate] 5 mg PO DAILY 06/13/21 [History] atenoloL [Atenolol] 100 mg PO BEDTIME 06/13/21 [History] hydroCHLOROthiazide [Hydrochlorothiazide] 25 mg PO DAILY 06/13/21 [History] Acetaminophen [Tylenol] 650 mg PO Q6H PRN 06/22/21 [History] Calcium Carb, Citrate/Vit D3 [Citracal + D ER] 1 tab PO BIDMEALS 06/22/21 [History] Cholecalciferol (Vitamin D3) [Vitamin D3] 25 mcg PO DAILY 06/22/21 [History] Ergocalciferol (Vitamin D2) [Vitamin D2] 20 mcg PO DAILY 06/22/21 [History] Multivitamin with Minerals [Multivitamins with Minerals] 1 tab PO DAILY 06/22/21 [History] Sennosides/Docusate Sodium [Senna-S 8.6-50 mg Tablet] 1 tab PO BID 06/22/21 [History] Enoxaparin Sodium [Lovenox] 40 mg SUBCUT DAILY #12 syringe 07/02/21 [Rx] polyethylene glycoL 3350 [MiraLAX] 17 gm PO DAILY PRN #30 packet 07/02/21 [Rx] Oxygen Therapy Mode: Room Air Patient Handouts: Anticoagulant Injection Instructions Using a Prefilled Syringe - Discharge Summary/Plan Comment DC Time >30 min.: No Total # of Minutes for Discharge Time: 10 min - Patient Data Vitals - Most Recent: Last Vital Signs Temp 98.3 F 07/02/21 08:00 Pulse 53 L 07/02/21 08:00 Resp 18 07/02/21 08:00 BP 145/54 H 07/02/21 08:03 Pulse Ox 96 07/02/21 08:00 Weight - Most Recent: 130 lb 9.6 oz Med Orders - Current: Current Medications Acetaminophen (Acetaminophen 325 Mg Tab) 650 mg PO Q6H PRN PRN Reason: Pain Last Admin: 06/27/21 03:37 Dose: 650 mg Documented by: Amlodipine Besylate (Amlodipine 5 Mg Tab) 5 mg PO DAILY [facility] Last Admin: 07/02/21 08:03 Dose: 5 mg Documented by: Atenolol (Atenolol 100 Mg Tab) 100 mg PO BEDTIME [facility] Last Admin: 07/01/21 20:20 Dose: 100 mg Documented by: Calcium Carbonate/Glycine (Calcium Carbonate 500 Mg Tablet) 500 mg PO BIDMEALS [facility] Last Admin: 07/02/21 08:01 Dose: 500 mg Documented by: Cholecalciferol (Cholecalciferol (Vitamin D3) 25 Mcg Tab) 50 mcg PO DAILY [facility] Last Admin: 07/02/21 08:02 Dose: 50 mcg Documented by: Enoxaparin Sodium (Enoxaparin 40 Mg/0.4 Ml Syringe) 40 mg SUBCUT DAILY [facility] Stop: 07/15/21 09:01 Last Admin: 07/02/21 08:01 Dose: 40 mg Documented by: Hydrochlorothiazide (Hydrochlorothiazide 25 Mg Tab) 25 mg PO DAILY [facility] Last Admin: 07/02/21 08:02 Dose: 25 mg Documented by: Multivitamins/Minerals (Multivitamins With Iron/Calcium/Folic Acid/Minerals Tab) 1 tab PO DAILY [facility] Last Admin: 07/02/21 08:03 Dose: 1 tab Documented by: Nitroglycerin (Nitroglycerin 6.5 Mg Cap.Er) 6.5 mg PO BID [facility] Last Admin: 07/02/21 08:01 Dose: 6.5 mg Documented by: Prevagen *Ptom 1 each PO DAILY [facility] Last Admin: 07/02/21 08:01 Dose: 1 each Documented by: Ondansetron HCl (Ondansetron 4 Mg Tab.Dis) 4 mg PO Q4H PRN PRN Reason: Nausea/Vomiting Polyethylene Glycol (Polyethylene Glycol 3350 Powder 17 Gm Packet) 17 gm PO DAILY PRN PRN Reason: Constipation Last Admin: 06/27/21 20:14 Dose: 17 gm Documented by: Potassium Chloride (Potassium Chloride 10 Meq Tab.Er) 10 meq PO DAILY [facility] Last Admin: 07/02/21 08:02 Dose: 10 meq Documented by: Quetiapine Fumarate (Quetiapine 25 Mg Tab) 25 mg PO BID PRN PRN Reason: Agitation Last Admin: 07/01/21 20:24 Dose: 25 mg Documented by: Rosuvastatin Calcium (Rosuvastatin 20 Mg Tab) 40 mg PO BEDTIME [facility] Last Admin: 07/01/21 20:19 Dose: 40 mg Documented by: Senna/Docusate Sodium (Docusate Sodium/Sennosides 50-8.6 Mg Tab) 1 tab PO BID [facility] Last Admin: 07/02/21 08:03 Dose: 1 tab Documented by: Vit C/Vit E/Zinc/Copper/Lutein (Lutein/Minerals/Vitamin C/Vitamin E Acetate Cap) 1 each PO DAILY [facility] Last Admin: 07/02/21 08:03 Dose: 1 each Documented by: *Q Meaningful Use (DIS) - VTE *Q VTE Mechanical Contraindications *Q: At Risk for Falls
[2021-07-02] MEDS: Rosuvastatin 20 MG Tab PO SCH (20:23)
[2021-07-02] MEDS: QUEtiapine 25 MG Tab PO PRN (20:30)
[2021-07-03] MEDS: Calcium Carbonate 500 MG Tablet PO SCH (08:57)
[2021-07-03] MEDS: NITROGLYCERIN 6.5 MG PO SCH (08:58)
[2021-07-03] MEDS: Hydrochlorothiazide 25 MG Tab PO SCH (08:58)
[2021-07-03] MEDS: Enoxaparin 40 MG/0.4 ML Syringe SUBCUT SCH (08:58)
[2021-07-03] MEDS: PREVAGEN PO SCH (08:58)
[2021-07-03] MEDS: Potassium Chloride 10 MEQ Tab.ER PO SCH (08:58)
[2021-07-03] MEDS: amLODIPine 5 MG Tab PO SCH (08:58)
[2021-07-03] MEDS: Cholecalciferol (Vitamin D3) 25 MCG Tab PO SCH (08:59)
[2021-07-03] MEDS: Lutein/Minerals/Vitamin C/Vitamin E Acetate Cap PO SCH (08:59)
[2021-07-03] MEDS: Multivitamins with Iron/Calcium/Folic Acid/Minerals Tab PO SCH (08:59)
== END 2021-07-03 10:00 | disposition home or self-care (01) | DRG 560 ==
LOC: FB.MS 13:37
PROVIDERS: ADMIT Family Medicine; ATTEND Student in an Organized Health Care Education/Training Program
DX: S72.114D Nondisplaced fracture of greater trochanter of right femur, subsequent encounter for closed fracture with routine healing (principal); D62 Acute posthemorrhagic anemia; I10 Essential (primary) hypertension; G31.83 Neurocognitive disorder with Lewy bodies; F02.80 Dementia in other diseases classified elsewhere, unspecified severity, without behavioral disturbance, psychotic disturbance, mood disturbance, and anxiety; I25.10 Atherosclerotic heart disease of native coronary artery without angina pectoris; E78.00 Pure hypercholesterolemia, unspecified; Z96.659 Presence of unspecified artificial knee joint; E78.5 Hyperlipidemia, unspecified; M19.90 Unspecified osteoarthritis, unspecified site; I83.93 Asymptomatic varicose veins of bilateral lower extremities; N28.89 Other specified disorders of kidney and ureter; Z47.89 Encounter for other orthopedic aftercare; Z79.899 Other long term (current) drug therapy; Z88.5 Allergy status to narcotic agent; I25.2 Old myocardial infarction; Z95.1 Presence of aortocoronary bypass graft
CPT/HCPCS: 36415; 85049; 97110-GP; 97116-GP; 97161-GP; 97165-GO; 97530-GO; 97530-GP; 97535-GO; A9270-GY; J1650

== ENCOUNTER 2021-07-31 11:12 | Observation (INO) | payer OTHER, MEDICARE ==
--- NOTE | 2021-07-31 11:22 | EDM.PDOC ---
ED HPI GENERAL MEDICAL PROBLEM - General Chief Complaint: Chest Pain Stated Complaint: CHEST PAIN Time Seen by Provider: 07/31/21 11:45 Source of Information: Reports: Patient, Family History Limitations: Reports: Other (Dementia) - History of Present Illness INITIAL COMMENTS - FREE TEXT/NARRATIVE: Brought in by daughter States she has been complaining of right side chest pain with inspiration and movement , seemed to have gotten worse today Has no shortness of breath , no cough Pt did have fall on Tuesday may have hit her chest wall on the arm of a chair, was not able to specify , pain has been persistent and gotten worse may have laid on the ground for 2hrs or greater after the fall Goes to the [place] Had hip replacement in the last 3-4 weeks Onset: Gradual Onset Date: 07/27/21 Duration: Getting Worse Location: Reports: Chest (on the right side of chest wall) Quality: Reports: Ache, Dull, Pressure Severity: Moderate Improves with: Reports: None Worsens with: Reports: Movement Associated Symptoms: Reports: Confusion, Chest Pain. Denies: Cough, Diaphoresis, Headaches, Nausea/Vomiting Treatments DOCK ATTENDANT: Reports: Breathing Treatments Chest Pain Score (Numeric/FACES): 5 - Related Data Allergies Allergy/AdvReac Type Severity Reaction Status Date / Time alendronate sodium Allergy Cannot Verified 06/22/21 17:32 [From Fosamax] Remember colestipol Allergy Cannot Verified 06/22/21 17:32 Remember morphine Allergy Cannot Verified 06/12/21 15:09 Remember niacin Allergy Cannot Verified 06/22/21 17:32 Remember Home Meds: Home Meds Lutein/Min/Vit C/Vit E Acetate [Ocuvite Lutein] 1 cap PO DAILY 06/13/21 [History] Nitroglycerin 6.5 mg PO BID 06/13/21 [History] Potassium Chloride 10 meq PO DAILY 06/13/21 [History] Prevagen 1 cap PO DAILY 06/13/21 [History] Rosuvastatin Calcium 40 mg PO BEDTIME 06/13/21 [History] amLODIPine Besylate [Amlodipine Besylate] 5 mg PO DAILY 06/13/21 [History] atenoloL [Atenolol] 100 mg PO BEDTIME 06/13/21 [History] hydroCHLOROthiazide [Hydrochlorothiazide] 25 mg PO DAILY 06/13/21 [History] Acetaminophen [Tylenol] 650 mg PO Q6H PRN 06/22/21 [History] Calcium Carb, Citrate/Vit D3 [Citracal + D ER] 1 tab PO BIDMEALS 06/22/21 [History] Cholecalciferol (Vitamin D3) [Vitamin D3] 25 mcg PO DAILY 06/22/21 [History] Ergocalciferol (Vitamin D2) [Vitamin D2] 20 mcg PO DAILY 06/22/21 [History] Multivitamin with Minerals [Multivitamins with Minerals] 1 tab PO DAILY 06/22/21 [History] Sennosides/Docusate Sodium [Senna-S 8.6-50 mg Tablet] 1 tab PO BID 06/22/21 [History] polyethylene glycoL 3350 [MiraLAX] 17 gm PO DAILY PRN #30 packet 07/02/21 [Rx] Past Medical History Cardiovascular History: Reports: CAD, High Cholesterol, Hypertension, [place] Respiratory History: Reports: Other (See Below) Other Respiratory History: lung mass- right 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: Musculoskeletal History: Reports: Fracture, Osteoarthritis, Osteoporosis Neurological History: Reports: Other (See Below) Other Neuro History: lewey body dementia Psychiatric History: Reports: Autism, Dementia, Hallucinations - Past Surgical History Cardiovascular Surgical History: Reports: Coronary Artery Bypass Musculoskeletal Surgical History: Reports: Knee Replacement Social & Family History - Family History Family Medical History: No Pertinent Family History - Caffeine Use Caffeine Use: Reports: None - Living Situation & Occupation Living situation: Reports: with Family (Lives with her daughter.) Occupation: Retired ED ROS GENERAL - Review of Systems Review Of Systems: Unable To Obtain Reason Not Obtained: pt has dementia ED EXAM, GENERAL - Physical Exam Exam: See Below Exam Limited By: No Limitations (Memory problems) General Appearance: Alert, WD/WN, No Apparent Distress Eye Exam: Bilateral Eye: EOMI Ears: Hearing Grossly Normal Nose: Normal Inspection Throat/Mouth: Normal Oropharynx Head: Atraumatic, Normocephalic Neck: Supple, Non-Tender, Limited Range of Motion Respiratory/Chest: No Respiratory Distress, Lungs Clear, Normal Breath Sounds, Other (Point tenderness to palpation along the right 4-6th rib ICS. Point tenderness in the mid-thoracic). No: Accessory Muscle Use Cardiovascular: Regular Rate, Rhythm GI/Abdominal: Soft, Non-Tender Back Exam: Vertebral Tenderness (thoracic vertebrae) Extremities: Normal Inspection, No Pedal Edema Neurological: Alert, Confused, Disoriented, Memory Loss Recent Events, Abnormal Gait Psychiatric: Normal Affect, Normal Mood Skin Exam: Warm, Dry, Intact Lymphatic: No Adenopathy #1 Interpretation EKG Date: 07/31/21 Time: 11:10 Rhythm: NSR [place]: Normal P-Wave: Present QRS: Normal ST-T: Other (nonspecific) Comparison: Change From Previous EKG Course - Vital Signs Last Recorded V/S: Last Vital Signs Temp 36.6 C 07/31/21 11:23 Pulse 57 L 07/31/21 11:51 Resp 18 07/31/21 11:51 BP 127/64 07/31/21 11:51 Pulse Ox 96 07/31/21 11:51 - Orders/Labs/Meds Orders: Active Orders 24 hr Category Date Time Status EKG 12 Lead [EK] Routine Ther 07/31/21 11:19 Ordered Labs: Laboratory Tests 07/31/21 07/31/21 07/31/21 Range/Units 11:25 11:25 11:25 WBC 7.0 (3.0-10.3) x10-3/uL RBC 4.88 (3.60-5.20) x10(6)uL Hgb 14.0 (11.4-15.5) g/dL Hct 42.8 (34.2-48.2) % MCV 87.7 (76.7-100.5) fL MCH 28.7 (23.9-33.9) pg MCHC 32.8 (31.9-34.8) g/dL RDW 14.8 (12.3-16.5) % Plt Count 419 (151-488) x10(3)uL MPV 7.3 (7.1-12.4) fL Neut % (Auto) 78.4 H (30.8-76.2) % Lymph % (Auto) 8.4 L (18.4-52.1) % [place] % (Auto) 9.1 (4.4-15.7) % Eos % (Auto) 2.7 (0.6-8.1) % Baso % (Auto) 1.4 (0.2-1.5) % Neut # (Auto) 5.5 (1.5-6.3) x10-3/uL Lymph # (Auto) 0.6 L (1.0-4.4) x10-3/uL [place] # (Auto) 0.6 (0.3-1.0) x10-3/uL Eos # (Auto) 0.2 (0.0-0.8) x10-3/uL Baso # (Auto) 0.1 (0.0-0.1) x10-3/uL Sodium 135 (135-145) mmol/L Potassium 4.0 (3.5-5.3) mmol/L Chloride 98 L (100-110) mmol/L Carbon Dioxide 30 (21-32) mmol/L BUN 11 (7-18) mg/dL Creatinine 0.7 (0.55-1.02) mg/dL Est Cr Clr Drug Dosing 51.91 mL/min Estimated GFR (MDRD) > 60 (>60) BUN/Creatinine Ratio 15.7 (9-20) Glucose 157 H (80-116) mg/dL Calcium 8.8 (8.6-10.2) mg/dL Magnesium 1.6 L (1.8-2.5) mg/dL Total Bilirubin 0.8 (0.1-1.3) mg/dL AST 23 (5-25) IU/L ALT 30 (12-36) U/L Alkaline Phosphatase 115 H (56-112) IU/L Troponin I 8.9 (4.0-60.3) pg/mL NT-Pro-B Natriuret Pep 1088 H* (<=450) pg/mL Total Protein 6.8 (6.0-8.0) g/dL Albumin 3.6 (3.2-4.6) g/dL Globulin 3.2 g/dL Albumin/Globulin Ratio 1.1 Urine Color (YELLOW) Urine Appearance (CLEAR) Urine pH (5.0-6.5) Ur Specific [place] (1.010-1.025) Urine Protein (NEGATIVE) mg/dL Urine Glucose (UA) (NORMAL) mg/dL Urine Ketones (NEGATIVE) mg/dL Urine Occult Blood (NEGATIVE) Urine Nitrite (NEGATIVE) Urine Bilirubin (NEGATIVE) Urine Urobilinogen (NEGATIVE) mg/dL Ur Leukocyte Esterase (NEGATIVE) Urine RBC (0-5) Urine WBC (0-5) Ur Squamous Epith Cells (NS,R,O) Urine Bacteria (NS) 07/31/21 Range/Units 14:50 WBC (3.0-10.3) x10-3/uL RBC (3.60-5.20) x10(6)uL Hgb (11.4-15.5) g/dL Hct (34.2-48.2) % MCV (76.7-100.5) fL MCH (23.9-33.9) pg MCHC (31.9-34.8) g/dL RDW (12.3-16.5) % Plt Count (151-488) x10(3)uL MPV (7.1-12.4) fL Neut % (Auto) (30.8-76.2) % Lymph % (Auto) (18.4-52.1) % [place] % (Auto) (4.4-15.7) % Eos % (Auto) (0.6-8.1) % Baso % (Auto) (0.2-1.5) % Neut # (Auto) (1.5-6.3) x10-3/uL Lymph # (Auto) (1.0-4.4) x10-3/uL [place] # (Auto) (0.3-1.0) x10-3/uL Eos # (Auto) (0.0-0.8) x10-3/uL Baso # (Auto) (0.0-0.1) x10-3/uL Sodium (135-145) mmol/L Potassium (3.5-5.3) mmol/L Chloride (100-110) mmol/L Carbon Dioxide (21-32) mmol/L BUN (7-18) mg/dL Creatinine (0.55-1.02) mg/dL Est Cr Clr Drug Dosing mL/min Estimated GFR (MDRD) (>60) BUN/Creatinine Ratio (9-20) Glucose (80-116) mg/dL Calcium (8.6-10.2) mg/dL Magnesium (1.8-2.5) mg/dL Total Bilirubin (0.1-1.3) mg/dL AST (5-25) IU/L ALT (12-36) U/L Alkaline Phosphatase (56-112) IU/L Troponin I (4.0-60.3) pg/mL NT-Pro-B Natriuret Pep (<=450) pg/mL Total Protein (6.0-8.0) g/dL Albumin (3.2-4.6) g/dL Globulin g/dL Albumin/Globulin Ratio Urine Color Yellow (YELLOW) Urine Appearance Clear (CLEAR) Urine pH 8.0 H (5.0-6.5) Ur Specific [place] 1.010 (1.010-1.025) Urine Protein Negative (NEGATIVE) mg/dL Urine Glucose (UA) Normal (NORMAL) mg/dL Urine Ketones Negative (NEGATIVE) mg/dL Urine Occult Blood Negative (NEGATIVE) Urine Nitrite Negative (NEGATIVE) Urine Bilirubin Negative (NEGATIVE) Urine Urobilinogen Normal (NEGATIVE) mg/dL Ur Leukocyte Esterase Negative (NEGATIVE) Urine RBC 0-5 (0-5) Urine WBC 0-5 (0-5) Ur Squamous Epith Cells Few H (NS,R,O) Urine Bacteria Few H (NS) Meds: Medications Discontinued Medications Generic Name Dose Route Start Last Admin Trade Name Remyq PRN Reason Stop Dose Admin Acetaminophen/Diphenhydramine HCl 2 tab 07/31/21 11:42 07/31/21 11:49 Acetaminophen/Diphenhydramine 500-25 Mg Tab PO 07/31/21 11:43 2 tab NOW STA Administration Magnesium Oxide 400 mg 07/31/21 13:37 07/31/21 14:04 Magnesium Oxide 400 Mg Tab PO 07/31/21 13:38 400 mg ONETIME ONE Administration - Re-Assessments/Exams Free Text/Narrative Re-Assessment/Exam: 07/31/21 14:49 pt had labs and Xray done No obvious chest / rib fracture elevated BNP noted discussed with daughter about admitting , will need pain control , gait training and possible admission to transition unit UA still pending 07/31/21 15:42 07/31/21 15:43 ua is negative 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 with 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 builder 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 physician , pt will be admitted : frequent falls , CHF and gait instability , rib pain , uncontrolled pain Departure - Departure Time of Disposition: 15:40 Disposition: Admitted As Inpatient 65 Clinical Impression: Hypomagnesemia, Gait instability, Contusion of rib on right side, Frequent falls Referrals: Terri Queen DO [Primary Care Provider] - Forms: ED Department Discharge Sepsis Event Note (ED) - Focused Exam Vital Signs: Vital Signs Temp Pulse Resp BP Pulse Ox 07/31/21 11:51 57 L 18 127/64 96 07/31/21 11:23 36.6 C 65 20 201/91 H 96 - My Orders Last 24 Hours: My Active Orders 07/31/21 11:19 EKG 12 Lead [EK] Routine - Assessment/Plan Last 24 Hours: My Active Orders 07/31/21 11:19 EKG 12 Lead [EK] Routine
[2021-07-31] MEDS ORDERED: Acetaminophen/Diphenhydramine 500-25 MG Tab PO STA (11:42)
[2021-07-31] MEDS ORDERED: Magnesium Oxide 400 MG Tab PO ONE (13:37)
--- NOTE | 2021-07-31 14:47 | CR ---
INDICATION: Fell Tuesday, right-sided rib pain. CHEST WITH RIGHT RIBS: AP view of the chest with two additional views of the right ribs were obtained 07/31/21 - no comparisons. The heart is enlarged. The aorta is tortuous with calcification in the arch and descending portion. A moderate to moderately severe dextroconvex scoliosis of the lower middle thoracic spine is noted. Overlying EKG leads are noted. Markings are relatively heavy at the left lung base, making it difficult to exclude patchy bronchopneumonia in that area. Hyperaeration is suggested, compatible with COPD, but should also be correlated clinically. Diaphragm leaves are also somewhat flattened, compatible with COPD. A definite active infiltrate, effusion, contusion or pneumothorax was not identified. Two views of the right ribs revealed deformity posterolaterally at the fourth right rib, compatible with an old healed fracture site. No displaced rib fracture site or other definite bony abnormality was identified. IMPRESSION: 1. No definite acute fracture site or other definite acute process. It is difficult to exclude patchy bronchopneumonia at the left lung base, however, with heavy markings there. 2. ASHD with cardiomegaly. 3. Scoliosis. 4. DJD left glenohumeral joint. MTDD
--- NOTE | 2021-07-31 14:54 | CR ---
INDICATION: Fell Tuesday, right-sided rib pain. THORACIC SPINE: Four views of the thoracic spine were obtained, revealing a moderate dextroconvex, somewhat rotatory scoliosis in the lower thoracic- thoracolumbar spine area. There is an osteoporotic compression fracture noted at what appears to be T12, which is of indeterminate age. Vertebral body and disc heights are otherwise fairly well maintained, although there may be some narrowing of one disc at a mid thoracic level, where hypertrophic changes are noted anteriorly off the vertebral bodies. The pedicles were not ideally visualized due to demineralization, but appeared grossly intact. IMPRESSION: 1. Compression fracture of indeterminate age T12. 2. Scoliosis. 3. Hypertrophic degenerative changes and some disc disease at T10-11. Report was called to Dr. Garcia at 1411 hours, 07/31/21, [facility]
[2021-07-31] MEDS ORDERED: Magnesium Hydroxide 400 MG/5 ML Susp 30 ML Cup PO PRN (16:38)
[2021-07-31] MEDS ORDERED: Acetaminophen 325 MG Tab PO PRN (16:38)
[2021-07-31] MEDS ORDERED: Polyethylene Glycol 3350 Powder 17 GM Packet PO PRN (17:16)
--- NOTE | 2021-07-31 17:27 | PCM.HP.2 ---
H&P History of Present Illness - General Date of Service: 07/31/21 Admit Problem/Dx: Admission Diagnosis/Problem Admission Diagnosis/Problem Chest pain in adult Source of Information: Provider History Limitations: Reports: Physical Impairment (lewy body dementia) - History of Present Illness Initial Comments - Free Text/Narative: Corine was brought to ER by her daughter for persistent right side chest pain, worse with inspiration and movement. She had a fall on Tuesday at their home and was on the floor for >2 hours when daughter found her, not sure if she hit arm of chair. History obtained from ER physician as patient's dementia limits history. She states pain is on left when press. Denies any belly pain. She had right femur fracture in June with postoperative hematoma. In ER, WBC 7.0, Hgb 14.0, Plts 419; Na 135, K 4.0, BUN 11, Cr 0.7. UA negative. Covid pending. Thoracic spine x-ray, questionable old T12 fracture. Rib/chest x- ray showed no acute process or fracture. She has been fall frequently at home, admission for PT/OT, may need placement since daughter works outside home and does not have caregiver with her during those times. Chest Pain Score (Numeric/FACES): 5 - Related Data Allergies/Adverse Reactions: Allergies Allergy/AdvReac Type Severity Reaction Status Date / Time alendronate sodium Allergy Cannot Verified 06/22/21 17:32 [From Fosamax] Remember colestipol Allergy Cannot Verified 06/22/21 17:32 Remember morphine Allergy Cannot Verified 06/12/21 15:09 Remember niacin Allergy Cannot Verified 06/22/21 17:32 Remember Home Medications: Home Meds Lutein/Min/Vit C/Vit E Acetate [Ocuvite Lutein] 1 cap PO DAILY 06/13/21 [History] Nitroglycerin 6.5 mg PO BID 06/13/21 [History] Potassium Chloride 10 meq PO DAILY 06/13/21 [History] Prevagen 1 cap PO DAILY 06/13/21 [History] Rosuvastatin Calcium 40 mg PO BEDTIME 06/13/21 [History] amLODIPine Besylate [Amlodipine Besylate] 5 mg PO DAILY 06/13/21 [History] atenoloL [Atenolol] 100 mg PO BEDTIME 06/13/21 [History] hydroCHLOROthiazide [Hydrochlorothiazide] 25 mg PO DAILY 06/13/21 [History] Acetaminophen [Tylenol] 650 mg PO Q6H PRN 06/22/21 [History] Calcium Carb, Citrate/Vit D3 [Citracal + D ER] 1 tab PO BIDMEALS 06/22/21 [History] Cholecalciferol (Vitamin D3) [Vitamin D3] 25 mcg PO DAILY 06/22/21 [History] Ergocalciferol (Vitamin D2) [Vitamin D2] 20 mcg PO DAILY 06/22/21 [History] Multivitamin with Minerals [Multivitamins with Minerals] 1 tab PO DAILY 06/22/21 [History] Sennosides/Docusate Sodium [Senna-S 8.6-50 mg Tablet] 1 tab PO BID 06/22/21 [History] polyethylene glycoL 3350 [MiraLAX] 17 gm PO DAILY PRN #30 packet 07/02/21 [Rx] Past Medical History HEENT History: Reports: Hard of Hearing Cardiovascular History: Reports: CAD, High Cholesterol, Hypertension, [place] Respiratory History: Reports: Other (See Below) Other Respiratory History: lung mass- right 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 DIGITAL History: Reports: Musculoskeletal History: Reports: Fracture, Osteoarthritis, Osteoporosis Neurological History: Reports: Other (See Below) Other Neuro History: lewey body dementia Psychiatric History: Reports: Autism, Dementia, Hallucinations - Infectious Disease History Infectious Disease History: Reports: None - Past Surgical History Cardiovascular Surgical History: Reports: Coronary Artery Bypass GI Surgical History: Reports: Appendectomy, Hernia, Abdominal Female Surgical History: Reports: Hysterectomy Musculoskeletal Surgical History: Reports: Knee Replacement Social & Family History - Family History Family Medical History: No Pertinent Family History - Tobacco Use Tobacco Use Status *Q: Never Tobacco User - Caffeine Use Caffeine Use: Reports: Coffee Caffeine Use Comment: 4 cups of coffee a day - Living Situation & Occupation Living situation: Reports: with Family (Lives with her daughter.) Occupation: Retired H&P Review of Systems - Review of Systems: Review Of Systems: Unable To Obtain Reason Not Obtained: lewy body dementia Exam - Exam Exam: See Below - Vital Signs Vital Signs: Last Vital Signs Temp 96.9 F 07/31/21 16:10 Pulse 62 07/31/21 16:10 Resp 18 07/31/21 16:10 BP 137/68 07/31/21 16:10 Pulse Ox 96 07/31/21 16:10 Weight: 130 lb 3.2 oz - Exam General: Alert, Oriented (person, pleasantly confused), Cooperative HEENT: PERRLA, EOMI, Hearing Intact, Mucosa Moist & [place]illa Neck: Trachea Midline Lungs: Clear to Auscultation, Normal Respiratory Effort, Other (TTP on left chest wall) Cardiovascular: Regular Rate, Regular Rhythm GI/Abdominal Exam: Normal Bowel Sounds, Soft, Non-Tender, Hernia (ventral hernia, palpable mesh repair, reducible). No: Guarding (Female) Exam: Deferred Rectal (Female) Exam: Deferred Extremities: No Pedal Edema, Normal Capillary Refill, Other (Hematoma to right femur underlying healed surgical incision, NT, 4 cm in size. ) Peripheral Pulses: 2+: Radial (L), Radial (R), Posterior Tibial (L), Posterior Tibial (R), Dorsalis Pedis (L), Dorsalis Pedis (R) Skin: Warm, Dry, Intact Neurological: Cranial Nerves Intact, Normal Speech, Normal Tone Neuro Extensive - Mental Status: Disorientation to Place, Disorientation to Time, Memory Loss-Recent Events - Patient Data Lab Results Last 24 hrs: Laboratory Results - last 24 hr 07/31/21 07/31/21 07/31/21 Range/Units 11:25 11:25 11:25 WBC 7.0 (3.0-10.3) x10-3/uL RBC 4.88 (3.60-5.20) x10(6)uL Hgb 14.0 (11.4-15.5) g/dL Hct 42.8 (34.2-48.2) % MCV 87.7 (76.7-100.5) fL MCH 28.7 (23.9-33.9) pg MCHC 32.8 (31.9-34.8) g/dL RDW 14.8 (12.3-16.5) % Plt Count 419 (151-488) x10(3)uL MPV 7.3 (7.1-12.4) fL Neut % (Auto) 78.4 H (30.8-76.2) % Lymph % (Auto) 8.4 L (18.4-52.1) % [place] % (Auto) 9.1 (4.4-15.7) % Eos % (Auto) 2.7 (0.6-8.1) % Baso % (Auto) 1.4 (0.2-1.5) % Neut # (Auto) 5.5 (1.5-6.3) x10-3/uL Lymph # (Auto) 0.6 L (1.0-4.4) x10-3/uL [place] # (Auto) 0.6 (0.3-1.0) x10-3/uL Eos # (Auto) 0.2 (0.0-0.8) x10-3/uL Baso # (Auto) 0.1 (0.0-0.1) x10-3/uL Sodium 135 (135-145) mmol/L Potassium 4.0 (3.5-5.3) mmol/L Chloride 98 L (100-110) mmol/L Carbon Dioxide 30 (21-32) mmol/L BUN 11 (7-18) mg/dL Creatinine 0.7 (0.55-1.02) mg/dL Est Cr Clr Drug Dosing 51.91 mL/min Estimated GFR (MDRD) > 60 (>60) BUN/Creatinine Ratio 15.7 (9-20) Glucose 157 H (80-116) mg/dL Calcium 8.8 (8.6-10.2) mg/dL Magnesium 1.6 L (1.8-2.5) mg/dL Total Bilirubin 0.8 (0.1-1.3) mg/dL AST 23 (5-25) IU/L ALT 30 (12-36) U/L Alkaline Phosphatase 115 H (56-112) IU/L Troponin I 8.9 (4.0-60.3) pg/mL NT-Pro-B Natriuret Pep 1088 H* (<=450) pg/mL Total Protein 6.8 (6.0-8.0) g/dL Albumin 3.6 (3.2-4.6) g/dL Globulin 3.2 g/dL Albumin/Globulin Ratio 1.1 Urine Color (YELLOW) Urine Appearance (CLEAR) Urine pH (5.0-6.5) Ur Specific [place] (1.010-1.025) Urine Protein (NEGATIVE) mg/dL Urine Glucose (UA) (NORMAL) mg/dL Urine Ketones (NEGATIVE) mg/dL Urine Occult Blood (NEGATIVE) Urine Nitrite (NEGATIVE) Urine Bilirubin (NEGATIVE) Urine Urobilinogen (NEGATIVE) mg/dL Ur Leukocyte Esterase (NEGATIVE) Urine RBC (0-5) Urine WBC (0-5) Ur Squamous Epith Cells (NS,R,O) Urine Bacteria (NS) 07/31/21 Range/Units 14:50 WBC (3.0-10.3) x10-3/uL RBC (3.60-5.20) x10(6)uL Hgb (11.4-15.5) g/dL Hct (34.2-48.2) % MCV (76.7-100.5) fL MCH (23.9-33.9) pg MCHC (31.9-34.8) g/dL RDW (12.3-16.5) % Plt Count (151-488) x10(3)uL MPV (7.1-12.4) fL Neut % (Auto) (30.8-76.2) % Lymph % (Auto) (18.4-52.1) % [place] % (Auto) (4.4-15.7) % Eos % (Auto) (0.6-8.1) % Baso % (Auto) (0.2-1.5) % Neut # (Auto) (1.5-6.3) x10-3/uL Lymph # (Auto) (1.0-4.4) x10-3/uL [place] # (Auto) (0.3-1.0) x10-3/uL Eos # (Auto) (0.0-0.8) x10-3/uL Baso # (Auto) (0.0-0.1) x10-3/uL Sodium (135-145) mmol/L Potassium (3.5-5.3) mmol/L Chloride (100-110) mmol/L Carbon Dioxide (21-32) mmol/L BUN (7-18) mg/dL Creatinine (0.55-1.02) mg/dL Est Cr Clr Drug Dosing mL/min Estimated GFR (MDRD) (>60) BUN/Creatinine Ratio (9-20) Glucose (80-116) mg/dL Calcium (8.6-10.2) mg/dL Magnesium (1.8-2.5) mg/dL Total Bilirubin (0.1-1.3) mg/dL AST (5-25) IU/L ALT (12-36) U/L Alkaline Phosphatase (56-112) IU/L Troponin I (4.0-60.3) pg/mL NT-Pro-B Natriuret Pep (<=450) pg/mL Total Protein (6.0-8.0) g/dL Albumin (3.2-4.6) g/dL Globulin g/dL Albumin/Globulin Ratio Urine Color Yellow (YELLOW) Urine Appearance Clear (CLEAR) Urine pH 8.0 H (5.0-6.5) Ur Specific [place] 1.010 (1.010-1.025) Urine Protein Negative (NEGATIVE) mg/dL Urine Glucose (UA) Normal (NORMAL) mg/dL Urine Ketones Negative (NEGATIVE) mg/dL Urine Occult Blood Negative (NEGATIVE) Urine Nitrite Negative (NEGATIVE) Urine Bilirubin Negative (NEGATIVE) Urine Urobilinogen Normal (NEGATIVE) mg/dL Ur Leukocyte Esterase Negative (NEGATIVE) Urine RBC 0-5 (0-5) Urine WBC 0-5 (0-5) Ur Squamous Epith Cells Few H (NS,R,O) Urine Bacteria Few H (NS) Result Diagrams: 07/31/21 11:25 07/31/21 11:25 Sepsis Event Note - Evaluation Sepsis Screening Result: No Definite Risk - Focused Exam Vital Signs: Vital Signs Temp Pulse Resp BP Pulse Ox 07/31/21 16:10 96.9 F 62 18 137/68 96 07/31/21 11:51 57 L 18 127/64 96 07/31/21 11:23 97.9 F 65 20 201/91 H 96 *Q Meaningful Use (ADM) - VTE *Q VTE Mechanical Contraindications *Q: At Risk for Falls - VTE Risk Assess *Q Each Risk Factor Represents 1 Point: None Total Score 1 Point Risk Factors: 0 Each Risk Factor Represents 2 Points: None Total Score 2 Point Risk Factors: 0 Each Risk Factor Represents 3 Points: Age 75 Years or Greater Total Score 3 Point Risk Factors: 3 Each Risk Factor Represents 5 Points: None Total Score 5 Point Risk Factors: 0 Venous Thromboembolism Risk Factor Score *Q: 3 - Problem List (1) Contusion of rib on right side SNOMED Code(s): 279039191 ICD Code: S20.211A - CONTUSION OF RIGHT FRONT WALL OF THORAX, INITIAL ENCOUNTER Status: Acute Current Visit: Yes (2) Frequent falls SNOMED Code(s): 959940776 ICD Code: R29.6 - REPEATED FALLS Status: Acute Current Visit: Yes (3) Gait instability SNOMED Code(s): 65967416 ICD Code: R26.81 - UNSTEADINESS ON FEET Status: Acute Current Visit: Yes (4) Status post-operative repair of hip fracture SNOMED Code(s): 739604784, 375970576 ICD Code: Z98.890 - OTHER SPECIFIED POSTPROCEDURAL STATES; Z87.81 - PERSONAL HISTORY OF (HEALED) TRAUMATIC FRACTURE Status: Acute Current Visit: No Onset Date: ~06/17/21 (5) Hypertension SNOMED Code(s): 59408910 ICD Code: I10 - ESSENTIAL (PRIMARY) HYPERTENSION Status: Chronic Current Visit: No (6) Lewy body dementia SNOMED Code(s): 898566918 ICD Code: G31.83 - DEMENTIA WITH LEWY BODIES; F02.80 - DEMENTIA IN OTH DISEASES CLASSD ELSWHR W/O BEHAVRL DISTURB Status: Chronic Current Visit: No Qualifiers: Dementia behavioral disturbance: without behavioral disturbance Qualified Code(s): G31.83 - Dementia with Lewy bodies; F02.80 - Dementia in other diseases classified elsewhere without behavioral disturbance Problem List Initiated/Reviewed/Updated: Yes Orders Last 24hrs: Active Orders 24 hr Category Date Time Status Patient Status [ADT] Routine ADT 07/31/21 16:38 Active Antiembolic Devices [RC] .Routine Care 07/31/21 16:40 Active Height and Weight [RC] DAILY Care 07/31/21 16:38 Active Intake and Output [RC] QSHIFT Care 07/31/21 16:41 Active Oxygen Therapy [RC] PRN Care 07/31/21 17:12 Active Pulse Oximetry [RC] PRN Care 07/31/21 16:38 Active Up With Assistance [RC] ASDIRECTED Care 07/31/21 17:12 Active Up to Chair [RC] ASDIRECTED Care 07/31/21 17:12 Active VTE/DVT Education [RC] Click to Edit Care 07/31/21 16:40 Active Vital Signs [RC] Q4H Care 07/31/21 16:38 Active OT Evaluation and Treatment [CONS] Routine Cons 07/31/21 17:12 Active PT Evaluation and Treatment [CONS] Routine Cons 07/31/21 17:12 Active Regular Diet [DIET] Diet 07/31/21 Dinner Active BASIC METABOLIC PANEL,BMP [CHEM] AM Lab 08/01/21 05:11 Ordered CBC WITH AUTO DIFF [HEME] AM Lab 08/01/21 05:11 Ordered CORONAVIRUS COVID-19 NICOLAS [MOLEC] Stat Lab 07/31/21 17:00 Ordered Acetaminophen [TylenoL] Med 07/31/21 16:38 Active 650 mg PO Q4H PRN Docusate Sodium/Sennosides [Senna Plus] Med 07/31/21 21:00 Active 1 tab PO BID Ibuprofen [Motrin] Med 07/31/21 17:15 Active 200 mg PO Q6H Lutein/Min/Vit C/Vit E Acetate [Ocuvite Lutein] Med 08/01/21 09:00 Active 1 each PO DAILY Magnesium Hydroxide [Milk of Magnesia] Med 07/31/21 16:38 Active 30 ml PO BID PRN Nitroglycerin Med 07/31/21 21:00 Active 6.5 mg PO BID Potassium Chloride [Potassium Chloride] Med 08/01/21 09:00 Ordered 10 meq PO DAILY Prevagen Med 08/01/21 09:00 Ordered 1 cap PO DAILY Rosuvastatin Calcium [Rosuvastatin Calcium] Med 07/31/21 21:00 Ordered 40 mg PO BEDTIME amLODIPine [Norvasc] Med 08/01/21 09:00 Active 5 mg PO DAILY atenoloL [Tenormin] Med 07/31/21 21:00 Active 100 mg PO BEDTIME hydroCHLOROthiazide Med 08/01/21 09:00 Active 25 mg PO DAILY polyethylene glycoL 3350 [MiraLAX] Med 07/31/21 17:16 Active 17 gm PO DAILY PRN DVT/VTE Prophylaxis Reflex [OM.PC] Per Unit Routine Oth 07/31/21 16:38 Ordered Resuscitation Status Routine Resus Stat 07/31/21 16:38 Ordered EKG 12 Lead [EK] Routine Ther 07/31/21 11:19 Ordered Medication Orders Acetaminophen (Acetaminophen 325 Mg Tab) 650 mg PO Q4H PRN PRN Reason: analgesia/fever Amlodipine Besylate (Amlodipine 10 Mg Tab) 5 mg PO DAILY [facility] Atenolol (Atenolol 100 Mg Tab) 100 mg PO BEDTIME [facility] Hydrochlorothiazide (Hydrochlorothiazide 25 Mg Tab) 25 mg PO DAILY [facility] Ibuprofen (Ibuprofen 200 Mg Tab) 200 mg PO Q6H [facility] Magnesium Hydroxide (Magnesium Hydroxide 400 Mg/5 Ml Susp 30 Ml Cup) 30 ml PO BID PRN PRN Reason: Constipation Nitroglycerin (Nitroglycerin 6.5 Mg Cap.Er) 6.5 mg PO BID [facility] Non-Formulary Medication (Potassium Chloride [Potassium Chloride]) 10 meq PO DAILY [facility] Non-Formulary Medication (Prevagen) 1 cap PO DAILY [facility] Non-Formulary Medication (Rosuvastatin Calcium [Rosuvastatin Calcium]) 40 mg PO BEDTIME [facility] Polyethylene Glycol (Polyethylene Glycol 3350 Powder 17 Gm Packet) 17 gm PO DAILY PRN PRN Reason: Constipation Senna/Docusate Sodium (Docusate Sodium/Sennosides 50-8.6 Mg Tab) 1 tab PO BID [facility] Vit C/Vit E/Zinc/Copper/Lutein (Lutein/Minerals/Vitamin C/Vitamin E Acetate Cap) 1 each PO DAILY [facility] Assessment/Plan Comment:: 1. Admit for frequent falls, gait instability, contusion to right side of ribs. 2. Falls/gait instability: PT/OT evaluate & treat. Up to chair and with assistance. 3. Lewy body dementia: Prevagen(will get her daughter to bring in). Close to nurse station with video monitoring. 4. Right chest pain: having some left side chest wall pain, will monitor and adjust treatments as necessary. Tylenol & Ibuprofen for pain. Due to fall, will avoid narcotics if possible. 5. Diet: Vegetarian, does eat fish. 6. Activity: Up to chair and with assistance. 7. DVT prophylaxis: TEDs. 8. CODE STATUS: FULL. 9. Discharge planning: dependent on PT/OT evaluations. May need memory care unit. Adjust treatments as necessary. Anticipate here through the weekend. - Mortality Measure Prognosis:: Poor
[2021-07-31] MEDS: Ibuprofen 200 MG Tab PO SCH ×2 (18:00→22:53)
[2021-07-31] MEDS ORDERED: Atenolol 25 MG Tab ONE (20:07)
[2021-07-31] MEDS ORDERED: Rosuvastatin 20 MG Tab PO SCH (21:00)
[2021-07-31] MEDS: NITROGLYCERIN 6.5 MG PO SCH (21:06)
[2021-08-01] MEDS: Ibuprofen 200 MG Tab PO SCH ×2 (04:22→12:01)
[2021-08-01] MEDS: NITROGLYCERIN 6.5 MG PO SCH (08:43)
[2021-08-01] MEDS ORDERED: Potassium Chloride 10 MEQ Tab.ER PO SCH (09:00)
[2021-08-01] MEDS ORDERED: amLODIPine 10 MG Tab PO SCH (09:00)
[2021-08-01] MEDS ORDERED: Hydrochlorothiazide 25 MG Tab PO SCH (09:00)
[2021-08-01] MEDS ORDERED: PREVAGEN PO SCH (09:00)
[2021-08-01] MEDS ORDERED: Lutein/Minerals/Vitamin C/Vitamin E Acetate Cap PO SCH (09:00)
--- NOTE | 2021-08-01 12:43 | PCM.DCSUM1 ---
Discharge Summary - Hospital Course HPI Initial Comments: Corine was brought to ER by her daughter for persistent right side chest pain, worse with inspiration and movement. She had a fall on Tuesday at their home and was on the floor for >2 hours when daughter found her, not sure if she hit arm of chair. History obtained from ER physician as patient's dementia limits history. She states pain is on left when press. Denies any belly pain. She had right femur fracture in June with postoperative hematoma. In ER, WBC 7.0, Hgb 14.0, Plts 419; Na 135, K 4.0, BUN 11, Cr 0.7. UA negative. Covid pending. Thoracic spine x-ray, questionable old T12 fracture. Rib/chest x- ray showed no acute process or fracture. She has been fall frequently at home, admission for PT/OT, may need placement since daughter works outside home and does not have caregiver with her during those times. Diagnosis: Stroke: No - Discharge Data Discharge Date: 08/01/21 (Current [facility] pt) Discharge Disposition: Home, Home Health Agency Condition: Stable - Referral to Home Health Date of Face to Face Encounter: 08/01/21 Reason for Homebound Status: Dementia Primary Care Physician: Terri Queen DO Skilled Need: PT/OT, [facility] - Discharge Diagnosis/Problem(s) (1) Contusion of rib on right side SNOMED Code(s): 629916759 ICD Code: S20.211A - CONTUSION OF RIGHT FRONT WALL OF THORAX, INITIAL ENCO UNTER Status: Acute Current Visit: Yes (2) Frequent falls SNOMED Code(s): 508214387 ICD Code: R29.6 - REPEATED FALLS Status: Acute Current Visit: Yes (3) Gait instability SNOMED Code(s): 59315396 ICD Code: R26.81 - UNSTEADINESS ON FEET Status: Acute Current Visit: Yes (4) Status post-operative repair of hip fracture SNOMED Code(s): 367766188, 912935951 ICD Code: Z98.890 - OTHER SPECIFIED POSTPROCEDURAL STATES; Z87.81 - PERSONAL HISTORY OF (HEALED) TRAUMATIC FRACTURE Status: Acute Current Visit: No Onset Date: ~06/17/21 (5) Hypertension SNOMED Code(s): 73893331 ICD Code: I10 - ESSENTIAL (PRIMARY) HYPERTENSION Status: Chronic Current Visit: No (6) Lewy body dementia SNOMED Code(s): 791147670 ICD Code: G31.83 - DEMENTIA WITH LEWY BODIES; F02.80 - DEMENTIA IN OTH DISEASES CLASSD ELSWHR W/O BEHAVRL DISTURB Status: Chronic Current Visit: No Qualifiers: Dementia behavioral disturbance: without behavioral disturbance Qualified Code(s): G31.83 - Dementia with Lewy bodies; F02.80 - Dementia in other diseases classified elsewhere without behavioral disturbance - Patient Summary/Data Consults: Consultations 07/31/21 17:12 OT Evaluation and Treatment [CONS] Routine Please Evaluate and Treat. OT Reason for Consult: ADL's This query below is only for informational purposes and is not editable. Admission Diagnosis/Problem: Chest pain in adult PT Evaluation and Treatment [CONS] Routine Please Evaluate and Treat. PT Reason for Consult: Balance This query below is only for informational purposes and is not editable. Admission Diagnosis/Problem: Chest pain in adult Hospital Course: CBC was normal in ER and repeated today. Chemistry unremarkable. UA negative. She has been ambulating with her FWW with standby assist. Observation status from admission. Spoke with her daughter about services through [facility] and/or [facility] to help her care for her mom at home. Discussed her becoming a paid caregiver as well. Spoke with Sadia at [facility] as well, she is an active [facility] patient, she was just seen by PT on 07/28 and due to have nurse visit on 08/04, Sadia said she would notify her nurse and can possibly come out on Tuesday. They also have director social welfare that can help with getting services with [facility] along with Erica De Anda's assistance on Tuesday. Daughter works M-F in evenings cleaning, can be working 2-4hrs an evening, she is open to help with her mom to keep her at home. Discharged in her daughter's care in stable condition. - Patient Instructions Diet: Usual Diet as Tolerated Activity: As Tolerated Driving: Do Not Drive Showering/Bathing: May Shower Notify Provider of: Fever, Increased Pain, Nausea and/or Vomiting Other/Special Instructions: Active [facility] patient, nurse is due to come out Tue/. Erica De Anda will call on Tuesday to discuss some assistance through the [facility]. - Discharge Plan *PRESCRIPTION DRUG MONITORING PROGRAM REVIEWED*: Not Applicable *COPY OF PRESCRIPTION DRUG MONITORING REPORT IN PATIENT BRIGID: Not Applicable Home Medications: Home Meds Lutein/Min/Vit C/Vit E Acetate [Ocuvite Lutein] 1 cap PO DAILY 06/13/21 [History] Nitroglycerin 6.5 mg PO BID 06/13/21 [History] Potassium Chloride 10 meq PO DAILY 06/13/21 [History] Prevagen 1 cap PO DAILY 06/13/21 [History] Rosuvastatin Calcium 40 mg PO BEDTIME 06/13/21 [History] amLODIPine Besylate [Amlodipine Besylate] 5 mg PO DAILY 06/13/21 [History] atenoloL [Atenolol] 100 mg PO BEDTIME 06/13/21 [History] hydroCHLOROthiazide [Hydrochlorothiazide] 25 mg PO DAILY 06/13/21 [History] Acetaminophen [Tylenol] 650 mg PO Q6H PRN 06/22/21 [History] Calcium Carb, Citrate/Vit D3 [Citracal + D ER] 1 tab PO BIDMEALS 06/22/21 [History] Cholecalciferol (Vitamin D3) [Vitamin D3] 25 mcg PO DAILY 06/22/21 [History] Ergocalciferol (Vitamin D2) [Vitamin D2] 20 mcg PO DAILY 06/22/21 [History] Multivitamin with Minerals [Multivitamins with Minerals] 1 tab PO DAILY 06/22/21 [History] Sennosides/Docusate Sodium [Senna-S 8.6-50 mg Tablet] 1 tab PO BID 06/22/21 [History] polyethylene glycoL 3350 [MiraLAX] 17 gm PO DAILY PRN #30 packet 07/02/21 [Rx] Patient Handouts: Fall Prevention in the Home, Adult, [id number], Fall Prevention in Hospitals, Adult Forms: ED Department Discharge Referrals: Terri Queen DO [Primary Care Provider] - - Discharge Summary/Plan Comment DC Time >30 min.: No Total # of Minutes for Discharge Time: 10 min - General Info Date of Service: 08/01/21 Subjective Update: Pleasantly confused, has been getting up and using her FWW, labs stable today. Some soreness to right lateral chest wall. - Patient Data Vitals - Most Recent: Last Vital Signs Temp 98.2 F 08/01/21 12:00 Pulse 68 08/01/21 12:00 Resp 18 08/01/21 12:00 BP 156/80 H 08/01/21 12:00 Pulse Ox 96 08/01/21 12:00 Weight - Most Recent: 127 lb 12.8 oz I&O - Last 24 hours: Intake & Output 07/31/21 08/01/21 08/01/21 22:59 06:59 14:59 Intake Total 480 Balance 480 Lab Results - Last 24 hrs: Laboratory Results - last 24 hr 07/31/21 07/31/21 08/01/21 Range/Units 14:50 17:00 06:10 WBC 8.5 (3.0-10.3) x10-3/uL RBC 4.44 (3.60-5.20) x10(6)uL Hgb 12.8 (11.4-15.5) g/dL Hct 38.7 (34.2-48.2) % MCV 87.0 (76.7-100.5) fL MCH 28.9 (23.9-33.9) pg MCHC 33.2 (31.9-34.8) g/dL RDW 14.6 (12.3-16.5) % Plt Count 362 (151-488) x10(3)uL MPV 7.5 (7.1-12.4) fL Neut % (Auto) 83.3 H (30.8-76.2) % Lymph % (Auto) 5.7 L (18.4-52.1) % Gray % (Auto) 7.1 (4.4-15.7) % Eos % (Auto) 2.5 (0.6-8.1) % Baso % (Auto) 1.4 (0.2-1.5) % Neut # (Auto) 7.1 H (1.5-6.3) x10-3/uL Lymph # (Auto) 0.5 L (1.0-4.4) x10-3/uL Gray # (Auto) 0.6 (0.3-1.0) x10-3/uL Eos # (Auto) 0.2 (0.0-0.8) x10-3/uL Baso # (Auto) 0.1 (0.0-0.1) x10-3/uL Sodium (135-145) mmol/L Potassium (3.5-5.3) mmol/L Chloride (100-110) mmol/L Carbon Dioxide (21-32) mmol/L BUN (7-18) mg/dL Creatinine (0.55-1.02) mg/dL Est Cr Clr Drug Dosing mL/min Estimated GFR (MDRD) (>60) BUN/Creatinine Ratio (9-20) Glucose (80-116) mg/dL Calcium (8.6-10.2) mg/dL Urine Color Yellow (YELLOW) Urine Appearance Clear (CLEAR) Urine pH 8.0 H (5.0-6.5) Ur Specific [place] 1.010 (1.010-1.025) Urine Protein Negative (NEGATIVE) mg/dL Urine Glucose (UA) Normal (NORMAL) mg/dL Urine Ketones Negative (NEGATIVE) mg/dL Urine Occult Blood Negative (NEGATIVE) Urine Nitrite Negative (NEGATIVE) Urine Bilirubin Negative (NEGATIVE) Urine Urobilinogen Normal (NEGATIVE) mg/dL Ur Leukocyte Esterase Negative (NEGATIVE) Urine RBC 0-5 (0-5) Urine WBC 0-5 (0-5) Ur Squamous Epith Cells Few H (NS,R,O) Urine Bacteria Few H (NS) SARS-CoV-2 RNA (NICOLAS) Negative (NEGATIVE) 08/01/21 Range/Units 06:10 WBC (3.0-10.3) x10-3/uL RBC (3.60-5.20) x10(6)uL Hgb (11.4-15.5) g/dL Hct (34.2-48.2) % MCV (76.7-100.5) fL MCH (23.9-33.9) pg MCHC (31.9-34.8) g/dL RDW (12.3-16.5) % Plt Count (151-488) x10(3)uL MPV (7.1-12.4) fL Neut % (Auto) (30.8-76.2) % Lymph % (Auto) (18.4-52.1) % Gray % (Auto) (4.4-15.7) % Eos % (Auto) (0.6-8.1) % Baso % (Auto) (0.2-1.5) % Neut # (Auto) (1.5-6.3) x10-3/uL Lymph # (Auto) (1.0-4.4) x10-3/uL Gray # (Auto) (0.3-1.0) x10-3/uL Eos # (Auto) (0.0-0.8) x10-3/uL Baso # (Auto) (0.0-0.1) x10-3/uL Sodium 139 (135-145) mmol/L Potassium 3.4 L (3.5-5.3) mmol/L Chloride 104 D (100-110) mmol/L Carbon Dioxide 30 (21-32) mmol/L BUN 10 (7-18) mg/dL Creatinine 0.6 (0.55-1.02) mg/dL Est Cr Clr Drug Dosing 60.56 mL/min Estimated GFR (MDRD) > 60 (>60) BUN/Creatinine Ratio 16.7 (9-20) Glucose 86 (80-116) mg/dL Calcium 8.2 L (8.6-10.2) mg/dL Urine Color (YELLOW) Urine Appearance (CLEAR) Urine pH (5.0-6.5) Ur Specific [place] (1.010-1.025) Urine Protein (NEGATIVE) mg/dL Urine Glucose (UA) (NORMAL) mg/dL Urine Ketones (NEGATIVE) mg/dL Urine Occult Blood (NEGATIVE) Urine Nitrite (NEGATIVE) Urine Bilirubin (NEGATIVE) Urine Urobilinogen (NEGATIVE) mg/dL Ur Leukocyte Esterase (NEGATIVE) Urine RBC (0-5) Urine WBC (0-5) Ur Squamous Epith Cells (NS,R,O) Urine Bacteria (NS) SARS-CoV-2 RNA (NICOLAS) (NEGATIVE) Med Orders - Current: Current Medications Acetaminophen (Acetaminophen 325 Mg Tab) 650 mg PO Q4H PRN PRN Reason: analgesia/fever Amlodipine Besylate (Amlodipine 10 Mg Tab) 5 mg PO DAILY [facility] Last Admin: 08/01/21 08:44 Dose: 5 mg Documented by: Atenolol (Atenolol 100 Mg Tab) 100 mg PO BEDTIME [facility] Last Admin: 07/31/21 21:05 Dose: 100 mg Documented by: Hydrochlorothiazide (Hydrochlorothiazide 25 Mg Tab) 25 mg PO DAILY [facility] Last Admin: 08/01/21 08:43 Dose: 25 mg Documented by: Ibuprofen (Ibuprofen 200 Mg Tab) 200 mg PO Q6H [facility] Last Admin: 08/01/21 12:01 Dose: 200 mg Documented by: Magnesium Hydroxide (Magnesium Hydroxide 400 Mg/5 Ml Susp 30 Ml Cup) 30 ml PO BID PRN PRN Reason: Constipation Nitroglycerin (Nitroglycerin 6.5 Mg Cap.Er) 6.5 mg PO BID [facility] Last Admin: 08/01/21 08:43 Dose: 6.5 mg Documented by: Non-Formulary Medication (Prevagen) 1 cap PO DAILY [facility] Polyethylene Glycol (Polyethylene Glycol 3350 Powder 17 Gm Packet) 17 gm PO DAILY PRN PRN Reason: Constipation Potassium Chloride (Potassium Chloride 10 Meq Tab.Er) 10 meq PO DAILY [facility] Last Admin: 08/01/21 08:43 Dose: 10 meq Documented by: Rosuvastatin Calcium (Rosuvastatin 20 Mg Tab) 40 mg PO BEDTIME [facility] Last Admin: 07/31/21 21:04 Dose: 40 mg Documented by: Senna/Docusate Sodium (Docusate Sodium/Sennosides 50-8.6 Mg Tab) 1 tab PO BID [facility] Last Admin: 08/01/21 08:44 Dose: 1 tab Documented by: Vit C/Vit E/Zinc/Copper/Lutein (Lutein/Minerals/Vitamin C/Vitamin E Acetate Cap) 1 each PO DAILY [facility] Last Admin: 08/01/21 09:41 Dose: 1 each Documented by: Discontinued Medications Acetaminophen/Diphenhydramine HCl (Acetaminophen/Diphenhydramine 500-25 Mg Tab) 2 tab PO NOW STA Stop: 07/31/21 11:43 Last Admin: 07/31/21 11:49 Dose: 2 tab Documented by: Atenolol (Atenolol 25 Mg Tab) Confirm Administered Dose 100 mg .ROUTE .STK-MED O NE Stop: 07/31/21 20:08 Last Admin: 07/31/21 21:04 Dose: Not Given Documented by: Magnesium Oxide (Magnesium Oxide 400 Mg Tab) 400 mg PO ONETIME ONE Stop: 07/31/21 13:38 Last Admin: 07/31/21 14:04 Dose: 400 mg Documented by: - Exam General: Reports: Alert, Oriented (person), Cooperative, No Acute Distress Lungs: Reports: Clear to Auscultation, Normal Respiratory Effort, Other (TTP right lateral chest wall, midaxillary line) Cardiovascular: Reports: Regular Rate, Regular Rhythm GI/Abdominal Exam: Normal Bowel Sounds, Soft, Non-Tender, Hernia (reducible) Extremities: No Pedal Edema, Normal Capillary Refill Neurological: Reports: No New Focal Deficit *Q Meaningful Use (DIS) - VTE *Q VTE Mechanical Contraindications *Q: At Risk for Falls
== END 2021-08-01 12:53 | disposition home health service (06) ==
LOC: FB.ED 11:12 → FB.MS 16:33 → INTOOBSV 16:33
PROVIDERS: ADMIT Family Medicine; ATTEND Family Medicine
DX: S20.211A Contusion of right front wall of thorax, initial encounter (principal); G31.83 Neurocognitive disorder with Lewy bodies; R29.6 Repeated falls; R26.81 Unsteadiness on feet; F02.80 Dementia in other diseases classified elsewhere, unspecified severity, without behavioral disturbance, psychotic disturbance, mood disturbance, and anxiety; I25.10 Atherosclerotic heart disease of native coronary artery without angina pectoris; E78.00 Pure hypercholesterolemia, unspecified; I10 Essential (primary) hypertension; I25.2 Old myocardial infarction; M81.0 Age-related osteoporosis without current pathological fracture; Z98.890 Other specified postprocedural states; W19.XXXA Unspecified fall, initial encounter; Z20.822 Contact with and (suspected) exposure to COVID-19; Z88.8 Allergy status to other drugs, medicaments and biological substances; Z88.5 Allergy status to narcotic agent; Z79.899 Other long term (current) drug therapy; Z90.49 Acquired absence of other specified parts of digestive tract
CPT/HCPCS: 36415; 71101; 72072; 80048; 80053; 81001; 83735; 83880; 84484; 85025; 87635; 93005; 99285; A9270; U0002

== ENCOUNTER 2021-12-10 09:56 | Emergency (ER) | payer MEDICARE, OTHER ==
[2021-12-10] MEDS ORDERED: traMADol 50 MG Tab PO ONE ×2 (09:57→11:40)
[2021-12-10] MEDS ORDERED: traMADol 50 MG Tab PO STA (11:40)
[2021-12-10] MEDS ORDERED: Acetaminophen 500 MG Tab PO STA (11:40)
[2021-12-14] MEDS ORDERED: traMADol 50 MG Tab PO ONE (11:46)
== END 2021-12-10 11:55 | disposition home or self-care (01) ==
LOC: FB.ED 09:56
DX: M77.32 Calcaneal spur, left foot (principal); I25.10 Atherosclerotic heart disease of native coronary artery without angina pectoris; E78.00 Pure hypercholesterolemia, unspecified; I10 Essential (primary) hypertension; I25.2 Old myocardial infarction; M19.90 Unspecified osteoarthritis, unspecified site; Z88.5 Allergy status to narcotic agent; Z88.1 Allergy status to other antibiotic agents; Z88.8 Allergy status to other drugs, medicaments and biological substances
CPT/HCPCS: 73650-LT; 99283; A9270-GY